=== PATIENT | female | born 1985 | race Caucasian/White ===

== ENCOUNTER → 2018-03-21 18:10 | Outpatient (CLI) | payer BC, SELFPAY ==
[2018-03-27 08:11] LABS: HPV APTIMA, High Risk Negative (Negative)
== END ==
PROVIDERS: Visit Provider Obstetrics & Gynecology
DX: Z12.4 Encounter for screening for malignant neoplasm of cervix (principal)
CPT/HCPCS: 88175; G0145

== ENCOUNTER → 2020-07-01 | Outpatient (CLI) | payer BC, SELFPAY ==
[2020-07-01 09:23] VITALS: BMI 28.8
[2020-07-01 18:51] LABS: Amphetamine Urine VISTA NEGATIVE (<1000 ng/mL); Barbiturate Urine VISTA NEGATIVE (< 200 ng/mL); Benzodiazepine Urine VISTA NEGATIVE (< 200 ng/mL); Cocaine Urine VISTA NEGATIVE (< 300 ng/mL); Ecstacy Urine VISTA NEGATIVE (< 500 ng/mL); Methadone Urine VISTA NEGATIVE (< 300 ng/mL); PCP Urine VISTA NEGATIVE (< 25 ng/mL); THC Urine VISTA NEGATIVE (< 50 ng/mL); Vista UDS pH Range 6
[2020-07-06 08:08] LABS: Chlamydia By Nucleic Acid AMP Negative (Negative)
[2020-07-06 09:54] LABS: Gonococcus By Nucleic Acid AMP Negative (Negative)
== END | disposition home or self-care (01) ==
LOC: LABSPEC 16:35
PROVIDERS: PCP Family Medicine; Referring Provider Obstetrics & Gynecology; Visit Provider Obstetrics & Gynecology
DX: Z34.90 Encounter for supervision of normal pregnancy, unspecified, unspecified trimester (principal); Z11.3 Encounter for screening for infections with a predominantly sexual mode of transmission
CPT/HCPCS: 80307; 87086; 87491; 87591

== ENCOUNTER → 2020-07-07 16:30 | Outpatient (CLI) | payer BC, SELFPAY ==
[2020-07-01 09:23] VITALS: BMI 28.8
== END ==
PROVIDERS: PCP Family Medicine; Referring Provider Obstetrics & Gynecology; Visit Provider Obstetrics & Gynecology
DX: U07.1 COVID-19 (principal)
CPT/HCPCS: 87635; C9803; U0003

== ENCOUNTER → 2020-07-16 10:47 | Outpatient (CLI) | payer BC, SELFPAY ==
[2020-07-01 09:23] VITALS: BMI 28.8
[2020-07-16 11:39] LABS: Absolute Lymphocyte Count 1.48 X10^3/uL (0.83-4.51); Absolute Neutrophil Count 4.7 X10^3/uL (2.0-7.7); Basophil# 0.02 X10^3/uL; Basophil% 0.3 % (0-1); Eosinophil# 0.06 X10^3/uL; Eosinophils% 0.9 % (0-5); Hematocrit 39.9 % (37-47); Hemoglobin 13.5 g/dL (12.0-15.0); Lymphocyte # 1.48 X10^3/ul (4.0); Lymphocyte % 21.3 % (19-41); Mean Corp Hgb Conc 33.8 g/dL (32-36); Mean Corpuscular Hgb 31.4 pg (27.0-32.0); Mean Corpuscular Volume 92.8 fL (81-99); Mean Platelet Vol. 9.7 fl (6.2-12.0); Monocyte# 0.67 X10^3/uL; Monocyte% 9.6 % (0-10); NRBC Flagged by Analyzer 0 % (0-5); Neutrophil % 67.6 % (47-70); Platelet Count 349 K/mm3 (150-450); RBC Distribution Width CV 11.6 % (11.6-14.6); RBC Distribution Width SD 39.4 fl (35.1-43.9)
[2020-07-16 12:32] LABS: HIV - WCH Non-Reactive (Nonreactive); Hepatitis B Surface Antigen Non-Reactive (Nonreactive); Hepatitis C Antibody Non-Reactive (Nonreactive); Rubella IgG Reactive (Nonreactive)
[2020-07-22 02:22] LABS: Rapid Plasmin Reagin (RPR) NONREACTIVE (NONREACTIVE)
== END ==
PROVIDERS: PCP Family Medicine; Referring Provider Obstetrics & Gynecology; Visit Provider Obstetrics & Gynecology
DX: O09.521 Supervision of elderly multigravida, first trimester (principal); Z3A.00 Weeks of gestation of pregnancy not specified; Z31.430 Encounter of female for testing for genetic disease carrier status for procreative management
CPT/HCPCS: 36415; 85025; 86592; 86703; 86762; 86803; 86850; 86900; 86901; 87340

== ENCOUNTER → 2020-11-15 09:35 | Outpatient (CLI) | payer BC, SELFPAY ==
[2020-10-18 09:59] VITALS: BMI 33.3
[2020-11-15 10:25] LABS: Absolute Lymphocyte Count 1.19 X10^3/uL (0.83-4.51); Absolute Neutrophil Count 6.7 X10^3/uL (2.0-7.7); Basophil# 0.03 X10^3/uL; Basophil% 0.3 % (0-1); Eosinophil# 0.09 X10^3/uL; Hematocrit 37.3 % (37-47); Hemoglobin 12.2 g/dL (12.0-15.0); Lymphocyte # 1.19 X10^3/ul (0.83-4.51); Lymphocyte % 13.6 % (19-41); Mean Corp Hgb Conc 32.7 g/dL (32-36); Mean Corpuscular Hgb 31.5 pg (27.0-32.0); Mean Corpuscular Volume 96.4 fL (81-99); Mean Platelet Vol. 9.9 fl (6.2-12.0); Monocyte# 0.71 X10^3/uL; Monocyte% 8.1 % (0-10); NRBC Flagged by Analyzer 0 % (0-5); Neutrophil # 6.66 X10^3/uL (2.7-7.7); Neutrophil % 76.4 % (47-70); Platelet Count 282 K/mm3 (150-450); RBC Distribution Width CV 12.8 % (11.6-14.6); RBC Distribution Width SD 44.7 fl (35.1-43.9); Red Blood Count 3.87 M/mm3 (4.2-5.4); White Blood Count 8.7 K/mm3 (4.4-11.0)
[2020-11-15 10:45] LABS: Glucose Challenge Gest 1H 50g 269 mg/dL (70-140)
== END ==
PROVIDERS: Obstetrics & Gynecology; PCP Family Medicine; Referring Provider Obstetrics & Gynecology; Visit Provider Obstetrics & Gynecology
DX: O09.90 Supervision of high risk pregnancy, unspecified, unspecified trimester (principal); Z13.1 Encounter for screening for diabetes mellitus; Z3A.00 Weeks of gestation of pregnancy not specified
CPT/HCPCS: 36415; 82950; 85025

== ENCOUNTER → 2020-11-17 10:43 | Outpatient (CLI) | payer BC, SELFPAY ==
[2020-11-16 09:26] VITALS: BMI 35.5
[2020-11-18 17:04] LABS: EBV Acute VCA IgM < 36.0 U/mL (0.0-35.9)
== END ==
PROVIDERS: PCP Family Medicine; Referring Provider Obstetrics & Gynecology; Visit Provider Obstetrics & Gynecology
DX: Z20.828 Contact with and (suspected) exposure to other viral communicable diseases (principal)
CPT/HCPCS: 36415; 86665

== ENCOUNTER 2020-11-22 10:02 | Outpatient (RCR) | payer BC, SELFPAY ==
[2020-11-16 09:26] VITALS: BMI 35.5
== END 2020-11-26 23:59 ==
LOC: DC 10:02
PROVIDERS: PCP Family Medicine; Visit Provider Obstetrics & Gynecology
DX: O24.419 Gestational diabetes mellitus in pregnancy, unspecified control (principal); Z3A.00 Weeks of gestation of pregnancy not specified
CPT/HCPCS: 97802

== ENCOUNTER 2020-11-30 08:55 | Outpatient (RCR) | payer BC, SELFPAY ==
[2020-11-16 09:26] VITALS: BMI 35.5
== END 2020-11-30 23:59 | disposition home or self-care (01) ==
LOC: DC 08:55
PROVIDERS: PCP Family Medicine; Visit Provider Obstetrics & Gynecology
DX: O24.419 Gestational diabetes mellitus in pregnancy, unspecified control (principal); Z3A.00 Weeks of gestation of pregnancy not specified

== ENCOUNTER → 2020-12-17 11:58 | Outpatient (CLI) | payer BC, SELFPAY ==
[2020-12-03 10:27] VITALS: BMI 35.5
[2020-12-17 10:19] VITALS: BMI 35.5
--- NOTE | 2020-12-17 12:03 | US_ITS ---
STUDY: SECOND AND THIRD TRIMESTER OBSTETRICAL ULTRASOUND - LIMITED REASON FOR EXAM: Female, 35 years old 32 weeks routine survey LMP: 05/04/2020 PRIOR ULTRASOUND: None. TECHNIQUE: Transabdominal TECHNICAL QUALITY: Adequate. FINDINGS: There is a single intrauterine fetus. The fetus is in a cephalic presentation. There is demonstrated cardiac activity with a heart rate of 141 bpm. There is a normal amniotic fluid volume. The largest amniotic fluid pocket measures 6.6 cm. The amniotic fluid index (SHIMON) is 15.85 cm. The placenta is posterior in location and is not low lying. There are Grade 1 placental changes. The cervix measures 3.2 cm in length. BIOMETRY: BPD: 7.99 cm: 32 weeks, 0 days HC: 29.34 cm: 32 weeks, 2 days AC: 32.72 cm: 36 weeks, 4 days FL: 6.06 cm: 31 weeks, 3 days age by current US: 32 weeks, 5 days. QI by current US: 02/06/2021. Estimated weight: 2468 grams, +/- 370 grams, 94 percentile. US/OB Limited With Biometrics IMPRESSION: Single live intrauterine at 32 weeks, 5 days by current ultrasound with QI of 02/06/2021. Heart rate of 141 bpm. No suspicious sonographic findings Electronically Signed: Rodney Trevino MD at 13:32 EDT , Service support ,
== END ==
PROVIDERS: PCP Family Medicine; Referring Provider Obstetrics & Gynecology; Visit Provider Obstetrics & Gynecology
DX: O98.513 Other viral diseases complicating pregnancy, third trimester (principal); U07.1 COVID-19; O09.523 Supervision of elderly multigravida, third trimester; Z3A.32 32 weeks gestation of pregnancy
CPT/HCPCS: 76816

== ENCOUNTER 2020-12-29 12:10 | Outpatient (CLI) | payer BC, SELFPAY ==
[2020-12-29] VITALS (7 sets, daily range): BP systolic 112–139; BP diastolic 65–87; PULSE 63–76; TEMP 36.9; O2SAT 99; BMI 35.2
[2020-12-29 12:56] LABS: Hematocrit 36.4 % (37-47); Hemoglobin 12.3 g/dL (12.0-15.0); Mean Corp Hgb Conc 33.8 g/dL (32-36); Mean Corpuscular Hgb 31.5 pg (27.0-32.0); Mean Corpuscular Volume 93.1 fL (81-99); Mean Platelet Vol. 10.6 fl (6.2-12.0); Platelet Count 261 K/mm3 (150-450); RBC Distribution Width CV 12.6 % (11.6-14.6); Red Blood Count 3.91 M/mm3 (4.2-5.4); White Blood Count 8.2 K/mm3 (4.4-11.0)
[2020-12-29 13:06] LABS: Protein, Urine (Random) 41.1 mg/dL (<11.9); Protein:Creat Ratio 471 mg/g CRE (0-200)
[2020-12-29 13:08] LABS: AST(SGOT) 23 U/L (15-37); Alanine Aminotransfer ALT/SGPT 31 U/L (13-56); Creatinine, Serum 0.58 mg/dL (0.55-1.02); EST Glomerular Filtration Rate 124 mL/min (>60); Est Glom Filt Rate - Afr Amer 150 mL/min (>60); Estimated Creatinine Clearance 115.79 ml/min; Uric Acid 4.5 mg/dL (2.6-6.0)
--- NOTE | 2020-12-30 12:27 | OB.TRI.PN ---
Progress Notes Date of Service: 12/29/20 Progress Note: Patient presents for triage evaluation secondary to elevated BP and nausea. BPs mild range to normal. P:C elevated but labs otherwise normal. FHT: Moderate variability reactive no decelerations category I tracing [place]: No Contractions Assessment and plan: Reactive NST, reassuring maternal and status patient discharged to home to follow-up at next scheduled visit. Will have check BPs at home. See problem list details for additional plan information. Laboratory Studies: Laboratory Tests 12/29/20 12/29/20 12/29/20 Range/Units 12:35 12:35 12:35 WBC 8.2 (4.4-11.0) K/mm3 RBC 3.91 L (4.2-5.4) M/mm3 Hgb 12.3 (12.0-15.0) g/dL Hct 36.4 L (37-47) % MCV 93.1 (81-99) fL MCH 31.5 (27.0-32.0) pg MCHC 33.8 (32-36) g/dL RDW Std Deviation 43.0 (35.1-43.9) fl RDW Coeff of [place]rs 12.6 (11.6-14.6) % Plt Count 261 (150-450) K/mm3 MPV 10.6 (6.2-12.0) fl Creatinine 0.58 (0.55-1.02) mg/dL Estim Creat Clear Calc 115.79 ml/min Est GFR (MDRD) Af Amer 150 (>60) mL/min Est GFR (MDRD) Non-Af 124 (>60) mL/min Uric Acid 4.5 (2.6-6.0) mg/dL AST 23 (15-37) U/L ALT 31 (13-56) U/L U Random Total Protein 41.1 H (<11.9) mg/dL Urine Creatinine 87.20 (NO RANGE EST.) mg/dL Protein/Creatinin Ratio 471 H (0-200) mg/g CRE Procedures Urinary/Genital 52xxx-59xxx: [id number] non-stress test Interp
== END 2020-12-29 14:20 | disposition home or self-care (01) ==
LOC: WPOUT 12:17 → WP 12:18
PROVIDERS: PCP Family Medicine; Referring Provider Obstetrics & Gynecology; Visit Provider Obstetrics & Gynecology
DX: O26.899 Other specified pregnancy related conditions, unspecified trimester (principal); R03.0 Elevated blood-pressure reading, without diagnosis of hypertension; R11.0 Nausea; Z3A.00 Weeks of gestation of pregnancy not specified
CPT/HCPCS: 36415; 59025; 59050; 82565; 82570; 84156; 84450; 84460; 84550; 85027; 99218; G0378

== ENCOUNTER → 2021-01-03 09:50 | Outpatient (CLI) | payer BC, SELFPAY ==
[2021-01-03 09:06] VITALS: BMI 35.2
[2021-01-03 10:10] LABS: Absolute Lymphocyte Count 1.14 X10^3/uL (0.83-4.51); Basophil# 0.04 X10^3/uL; Basophil% 0.6 % (0-1); Eosinophil# 0.06 X10^3/uL; Eosinophils% 0.9 % (0-5); Hematocrit 37.7 % (37-47); Hemoglobin 12.8 g/dL (12.0-15.0); Lymphocyte # 1.14 X10^3/ul (0.83-4.51); Lymphocyte % 16.2 % (19-41); Mean Corpuscular Hgb 31.2 pg (27.0-32.0); Mean Platelet Vol. 10.7 fl (6.2-12.0); Monocyte# 0.73 X10^3/uL; Monocyte% 10.4 % (0-10); NRBC Flagged by Analyzer 0 % (0-5); Neutrophil # 5.04 X10^3/uL (2.7-7.7); Neutrophil % 71.5 % (47-70); Platelet Count 276 K/mm3 (150-450); RBC Distribution Width CV 12.3 % (11.6-14.6); RBC Distribution Width SD 41.1 fl (35.1-43.9)
[2021-01-03 10:24] LABS: Protein, Urine (Random) 35.6 mg/dL (<11.9); Protein:Creat Ratio 534 mg/g CRE (0-200)
[2021-01-03 10:31] LABS: ALB/GLOB Ratio 0.5 RATIO (0.9-2.4); AST(SGOT) 18 U/L (15-37); Alanine Aminotransfer ALT/SGPT 25 U/L (13-56); Albumin, Serum 2.4 g/dL (3.2-5.0); Alkaline Phosphatase 240 U/L (45-117); Anion Gap 10 (5-15); BUN 12 mg/dL (7-18); BUN/Creat Ratio 18.6 RATIO (10-20); Calcium,Total 8.7 mg/dL (8.5-10.1); Chloride 105 mmol/L (98-107); Creatinine, Serum 0.64 mg/dL (0.55-1.02); EST Glomerular Filtration Rate 110 mL/min (>60); Est Glom Filt Rate - Afr Amer 133 mL/min (>60); Globulin 4.4 g/dL (2.2-4.2); Glucose 95 mg/dL (74-106); Protein, Total 6.8 g/dL (6.4-8.2); Sodium Level 137 mmol/L (136-145)
== END ==
PROVIDERS: Nurse Practitioner Women's Health; PCP Family Medicine; Referring Provider Obstetrics & Gynecology; Visit Provider Obstetrics & Gynecology
DX: O16.3 Unspecified maternal hypertension, third trimester (principal); Z20.828 Contact with and (suspected) exposure to other viral communicable diseases; Z3A.00 Weeks of gestation of pregnancy not specified
CPT/HCPCS: 36415; 80053; 82570; 84156; 85025; 86665

== ENCOUNTER 2021-01-04 16:15 | Outpatient (CLI) | payer BC, SELFPAY ==
[2021-01-03 09:06] VITALS: BMI 35.2
[2021-01-04 16:33] VITALS: BMI 34.9
[2021-01-04 16:43] VITALS: BP 133/77; PULSE 85; TEMP 37.1
--- NOTE | 2021-01-05 02:14 | OB.TRI.PN ---
Progress Notes Date of Service: 01/04/21 Progress Note: Patient presents for triage evaluation secondary to contractions FHT: 140 Moderate variability reactive no decelerations category I tracing [place]: irregular Contractions Assessment and plan: threatened PTL Reactive NST, reassuring maternal and status patient discharged to home to follow-up as scheduled. See problem list details for additional plan information. Charges/Coding Procedures Urinary/Genital 52xxx-59xxx: [id number] non-stress test Interp
== END 2021-01-04 17:10 | disposition home or self-care (01) ==
LOC: WPOUT 16:30 → WP 16:31
PROVIDERS: PCP Family Medicine; Visit Provider Obstetrics & Gynecology
DX: O62.9 Abnormality of forces of labor, unspecified (principal); Z3A.00 Weeks of gestation of pregnancy not specified
CPT/HCPCS: 59025; 59050; 99218; G0378

== ENCOUNTER → 2021-01-10 12:32 | Outpatient (CLI) | payer BC, SELFPAY ==
[2020-12-03 10:27] VITALS: BMI 35.5
[2021-01-10 11:21] VITALS: BMI 34.9
--- NOTE | 2021-01-10 12:37 | US_ITS ---
STUDY: SECOND AND THIRD TRIMESTER OBSTETRICAL ULTRASOUND REASON FOR EXAM: Female, 35 years old growth LMP: 05/04/2020. TECHNIQUE: Transabdominal TECHNICAL QUALITY: Adequate. PRIOR ULTRASOUND: Comparison is made with prior study dated 12/17/2020. FINDINGS: There is a single intrauterine fetus. The fetus is in a cephalic presentation. There is demonstrated cardiac activity with a heart rate of 158 bpm. There is a normal amniotic fluid volume. The largest amniotic fluid pocket measures 4.4 cm. The amniotic fluid index (SHIMON) is 11.9 cm. The placenta is anterior in location and is not low lying. There are Grade 2 placental changes. The cervix measures 3.7 cm in length. The adnexal regions are not visualized. BIOMETRY: BPD: 8.6 cm: 34 weeks, 5 days HC: 32.1 cm: 36 weeks, 1 days AC: 36 cm: 39 weeks, 6 days FL: 6.8 cm: 35 weeks, 0 days CI: 78% FL/BPD: 79% FL/HC: FL/AC: 19% HC/AC: 0.89 age by current US: 36 weeks, 2 days. QI by current US: 02/05/2021. Estimated weight: 3356 grams, +/- 543 grams, 94 %. age by prior US: 36 weeks, 1 days. QI by prior US: 02/06/2021. Age by LMP: 30 weeks, 6 days. QI by LMP: 02/08/2021. US/OB Limited With Biometrics IMPRESSION: Single live intrauterine gestation with a mean gestational age of 36 weeks and 1 day. The measurements obtained today fall within the normal expected range. Electronically Signed: Jay Guido MD at 13:52 EDT , Service support ,
[2021-01-10 13:23] LABS: Absolute Lymphocyte Count 1.16 X10^3/uL (0.83-4.51); Absolute Neutrophil Count 6.8 X10^3/uL (2.0-7.7); Basophil# 0.02 X10^3/uL; Basophil% 0.2 % (0-1); Eosinophil# 0.07 X10^3/uL; Eosinophils% 0.8 % (0-5); Hematocrit 39.1 % (37-47); Hemoglobin 12.9 g/dL (12.0-15.0); Lymphocyte # 1.16 X10^3/ul (0.83-4.51); Lymphocyte % 13.1 % (19-41); Mean Corpuscular Hgb 30.6 pg (27.0-32.0); Mean Corpuscular Volume 92.9 fL (81-99); Mean Platelet Vol. 10.4 fl (6.2-12.0); Monocyte# 0.78 X10^3/uL; Monocyte% 8.8 % (0-10); NRBC Flagged by Analyzer 0 % (0-5); Neutrophil # 6.78 X10^3/uL (2.7-7.7); Neutrophil % 76.8 % (47-70); Platelet Count 249 K/mm3 (150-450); RBC Distribution Width CV 12.4 % (11.6-14.6); Red Blood Count 4.21 M/mm3 (4.2-5.4); White Blood Count 8.8 K/mm3 (4.4-11.0)
[2021-01-10 13:39] LABS: ALB/GLOB Ratio 0.5 RATIO (0.9-2.4); AST(SGOT) 21 U/L (15-37); Alanine Aminotransfer ALT/SGPT 25 U/L (13-56); Albumin, Serum 2.4 g/dL (3.2-5.0); Alkaline Phosphatase 258 U/L (45-117); Anion Gap 10 (5-15); BUN 12 mg/dL (7-18); BUN/Creat Ratio 17.3 RATIO (10-20); Chloride 105 mmol/L (98-107); Creatinine, Serum 0.69 mg/dL (0.55-1.02); EST Glomerular Filtration Rate 101 mL/min (>60); Est Glom Filt Rate - Afr Amer 123 mL/min (>60); Globulin 4.4 g/dL (2.2-4.2); Glucose 73 mg/dL (74-106); Potassium 4.3 mmol/L (3.5-5.1); Protein, Total 6.8 g/dL (6.4-8.2); Sodium Level 138 mmol/L (136-145)
== END ==
PROVIDERS: PCP Family Medicine; Referring Provider Obstetrics & Gynecology; Visit Provider Obstetrics & Gynecology
DX: O09.522 Supervision of elderly multigravida, second trimester (principal); O98.519 Other viral diseases complicating pregnancy, unspecified trimester; U07.1 COVID-19; O14.90 Unspecified pre-eclampsia, unspecified trimester; Z3A.35 35 weeks gestation of pregnancy
CPT/HCPCS: 36415; 76816; 80053; 85025; 87081

== ENCOUNTER → 2021-01-13 10:46 | Outpatient (CLI) | payer BC, SELFPAY ==
[2021-01-10 11:21] VITALS: BMI 34.9
[2021-01-13 11:14] LABS: Protein, Urine (Random) 138.6 mg/dL (<11.9); Protein:Creat Ratio 956 mg/g CRE (0-200)
== END ==
PROVIDERS: PCP Family Medicine; Referring Provider Obstetrics & Gynecology; Visit Provider Obstetrics & Gynecology
DX: O14.90 Unspecified pre-eclampsia, unspecified trimester (principal); Z3A.00 Weeks of gestation of pregnancy not specified
CPT/HCPCS: 82570; 84156

== ENCOUNTER 2021-01-17 21:05 | Inpatient (IN) | payer BC, SELFPAY ==
[2021-01-17] VITALS (26 sets, daily range): BP systolic 111–166; BP diastolic 55–105; PULSE 61–99; TEMP 36; O2SAT 90–100; BMI 34.9; BMI 35.0
[2021-01-17] MEDS: Lactated Ringers 1,000 ML 200 ML IV (21:25)
[2021-01-17] MEDS: Lactated Ringers 500 ML 999 ML IV (21:29)
[2021-01-17 21:40] LABS: Absolute Lymphocyte Count 1.69 X10^3/uL (0.83-4.51); Absolute Neutrophil Count 7.7 X10^3/uL (2.0-7.7); Basophil# 0.02 X10^3/uL; Basophil% 0.2 % (0-1); Eosinophil# 0.04 X10^3/uL; Eosinophils% 0.4 % (0-5); Hematocrit 40.8 % (37-47); Hemoglobin 13.9 g/dL (12.0-15.0); Lymphocyte # 1.69 X10^3/ul (0.83-4.51); Lymphocyte % 16.2 % (19-41); Mean Corp Hgb Conc 34.1 g/dL (32-36); Mean Corpuscular Volume 90.9 fL (81-99); Mean Platelet Vol. 10.8 fl (6.2-12.0); Monocyte# 0.92 X10^3/uL; Monocyte% 8.8 % (0-10); NRBC Flagged by Analyzer 0 % (0-5); Platelet Count 280 K/mm3 (150-450); RBC Distribution Width CV 12.3 % (11.6-14.6); RBC Distribution Width SD 40.8 fl (35.1-43.9); Red Blood Count 4.49 M/mm3 (4.2-5.4); White Blood Count 10.4 K/mm3 (4.4-11.0)
[2021-01-17 21:54] LABS: AST(SGOT) 22 U/L (15-37); Alanine Aminotransfer ALT/SGPT 29 U/L (13-56); Creatinine, Serum 0.76 mg/dL (0.55-1.02); EST Glomerular Filtration Rate 91 mL/min (>60); Est Glom Filt Rate - Afr Amer 110 mL/min (>60); Estimated Creatinine Clearance 88.37 ml/min; Uric Acid 5.5 mg/dL (2.6-6.0)
[2021-01-17] MEDS: fentaNYL-bupivacaine (epidural) 100 ML BAG EPIDURAL (22:27)
--- NOTE | 2021-01-17 23:22 | HP.PCM.OB_ITS ---
HPI - General General Date of Admission: 01/17/21 HPI Narrative JULIANNE ONEAL, is a 35 F who presents IAL regualr ctx with clear LOF, 4 cm dilated. Maternal Data Information QI Calculator 2 Estimated Delivery Date Method Current WG Current Estimate 02/08/21 LMP (Certain) 36w 6d Other Estimates 02/06/21 Ultrasound #1 37w 1d PFSH PFS Medical History (Updated 01/17/21 @ 23:[address] Marivel Velasco MD) Abnormal Pap smear of cervix Asthma Depression with anxiety Gestational diabetes Heartburn History of pre-term labor Insomnia Preeclampsia Home Medications omeprazole magnesium 20 mg tablet,delayed release 20 mg PO DAILY 03/21/18 [History Last Taken 01/16/21] multivitamin no.47-iron fum 27 mg-folate no.1 1 mg-dha 300 mg capsule 1 cap PO DAILY 06/22/20 [History Last Taken 01/17/21 09:00] blood sugar diagnostic #100 each 11/15/20 [Rx Last Taken Unknown] blood-glucose meter #1 each 11/15/20 [Rx Last Taken Unknown] lancets 33 gauge #100 each 11/15/20 [Rx Last Taken Unknown] aspirin 81 mg tablet,delayed release 81 mg PO QHS 11/16/20 [History Last Taken 01/16/21] doxylamine succinate 25 mg tablet 25 mg PO QHS PRN 11/16/20 [History Last Taken 01/16/21] Vitamin D (with calcium) 50 mcg OTHER DAILY 12/29/20 [History Last Taken 01/16/21] guaifenesin [Mucinex] 1,200 mg PO BID 12/29/20 [History Last Taken 01/17/21 09:00] metformin 1,000 mg PO BID 01/17/21 [History Last Taken 01/17/21 09:00] sertraline [Zoloft] 50 mg PO DAILY 01/17/21 [History Last Taken 01/17/21 09:00] Allergy/AdvReac Type Severity Reaction Status Date / Time codeine AdvReac Nausea Verified 01/13/21 09:54 morphine AdvReac Nausea Verified 01/13/21 09:54 Family History Mother Hypertension Narcolepsy Aunt Thyroid cancer Grandmother Thyroid cancer Brother Trisomy 21 Other Cancer Surgical History H/O toe surgery Social History adopted: No household members: family housing: house number of children: 3 pets and animals: Yes Smoking Status: Never smoker second hand exposure: No alcohol intake: never substance use type: does not use caffeine: Yes what type of physical activity do you participate in: walking and bicycling frequency: 3-4 times per week seatbelt use: always do you feel safe at home: Yes additional social history: Wxxbifkhu-Mrlmd-vuyp 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 Date Name GA/Weeks Outcome Route Bth Weight Gen Labor Lgth Anesthesia Del Locatn Provider FOB Unknown Peace-2003 33 live - 4lbs 15oz Fema le epidural [facility] Unknown Robin-2004 39 live - full term 6lbs 7oz Male 2 hours epidural [facility] Dr. Diggs Unknown Ana-2006 39 live - full term 7lbs 6.5oz Fem annamaria 7-8hours epidural [facility] Dr. Diggs/Dr. Beasley Delivery Date: hospitalized for 3 weeks until delivered at 33 weeks; NICU x1 week; placenta broke apart after delivery; tore on her cervix per patient Melisa Das Delivery Date: no complications Melisa Das Delivery Date: decrease FHR- nuchal cord Melisa Das Visit Details Expected Delivery Route/Plan Labor Preferences- CB/BF classes:declines labor support person: [] labor intervention preferences: [] pain management options preferred: [] cut cord/dad catch: [] : [] PP control planned: [] discussed possible routes of delivery and associated risks: [] special requests: [] Plans flu vaccine: declines tdap vaccine: given rhogam: na LARC form signed: declined movement and labor precautions reviewed. Problem list reviewed and updated with the most current plan of care details and appropriate orders placed. Relevant counseling for the gestational age provided. Continue routine care and follow up unless otherwise noted in visit notes/problem list details OB Flowsheet Initial Weight: Not Recorded Date -?-?-?-?-?-?-?-?-?-?-?-?- EGA Weight BP Urine Prot -?-?-?-?-?-?-?-?-?-?-?-?- Glucose FHR FuHt Pres Dilation -?-?-?-?-?-?-?-?-?-?-?-?- Effaced St Visit Note 07/01/20 -?-?-?-?-?-?-?-?-?-?-?-?- 8w 2d 168 lb 132/86 -?-?-?-?-?-?-?-?-?-?-?-?- -?-?-?-?-?-?-?-?-?-?-?-?- SM- CRL cons wit h LMP 07/27/20 -?-?-?-?-?-?-?-?-?-?-?-?- 12w 0d 170 lb 112/82 Negative -?-?-?-?-?-?-?-?-?-?-?-?- Negative 160 -?-?-?-?-?-?-?-?-?-?-?-?- GP - no cramping or bleeding. Planning gender reveal tonight. Flu shot today. 08/27/20 -?-?-?-?-?-?-?-?-?-?-?-?- 16w 3d 118 lb 178 lb 110/82 Negative -?-?-?-?-?-?-?-?-?-?-?-?- Negative 150 -?-?-?-?-?--?-?-?-?-?-?-?- SM- no vb lof cr amping 09/20/20 -?-?-?-?-?-?-?-?-?-?-?-?- 19w 6d 185 lb 115/80 Negative -?-?-?-?-?-?-?-?-?-?-?-?- Negative 145 -?-?-?-?-?-?-?-?-?-?-?-?- SM- no vb lof cr amping 10/18/20 -?-?-?-?-?-?-?-?-?-?-?-?- 23w 6d 194 lb 8 oz 128/88 Nega tive -?-?-?-?-?-?-?-?-?-?--?-?- Negative 135 24 -?-?-?-?-?-?-?-?-?-?-?-?- GP - no LOF, VB, DFM, ctx. GCT given for next visit. Discussed covid vaccine in . Likely planning Juanjose William for name. 11/15/20 -?-?-?-?-?-?-?-?-?-?-?-?- 27w 6d 209 lb 136/78 Negative -?-?-?-?-?-?-?-?-?-?-?-?- Negative 140 28 -?--?-?-?-?-?-?-?-?-?-?-?- SM- no vb lof go od fm no regular ctx but some stephen parr, increased swelling 12/03/20 -?-?-?-?-?-?-?-?-?-?-?-?- 30w 3d 207 lb 122/80 -?-?-?-?-?-?-?-?-?-?-?-?- 140 33 -?-?-?-?-?-?-?-?-?-?-?-?- SM- no vb lof go od fm no regular ctx BG controlled with metformin, discussed increased testing 12/17/20 -?-?-?-?-?-?-?-?-?-?-?-?- 32w 3d 205 lb 112/62 Negative -?-?-?-?-?-?-?-?-?-?-?-?- Negative 140 -?-?-?-?-?-?-?-?-?-?-?-?- SM- nst 12/20/20 -?-?-?-?-?-?-?-?-?-?-?-?- 32w 6d 207 lb 120/84 Trace -?-?-?-?-?-?-?-?-?-?-?-?- Negative 150 -?-?-?-?-?-?-?-?-?-?-?-?- MH-NST only, justyn ctive 12/29/20 -?-?-?-?-?-?-?-?-?-?-?-?- 34w 1d 205 lb 8 oz 130/90 Nega tive -?-?-?-?-?-?-?-?-?-?-?-?- Negative 130 -?-?-?-?-?-?-?-?-?-?-?-?- GP - no LOF, VB, DFM, regular ctx. BP elevated and patient having nausea and not feeling well. Sent to triage for eval. 01/03/21 -?-?-?-?-?-?-?-?--?-?-?-?- 34w 6d 203 lb 122/80 Trace -?-?-?-?-?-?-?-?-?-?-?-?- Negative -?-?-?-?-?-?-?-?-?-?-?-?- 01/10/21 -?-?-?-?-?-?-?-?-?-?-?--?- 35w 6d 204 lb 130/82 Trace -?-?-?-?-?-?-?-?-?-?-?-?- Negative -?-?-?-?-?-?-?-?-?-?-?-?- 01/17/21 -?-?-?-?-?-?-?-?-?-?-?-?- 36w 6d 140/104 -?-?-?-?-?-?-?-?-?-?-?-?- -?-?-?-?-?-?-?-?-?-?-?-?- 01/17/21 -?-?-?-?-?-?-?-?-?-?-?-?- 36w 6d 204 lb 138/77 145/80 143/79 147/75 149/74 122/60 114/56 118/58 118/55 114/58 111/58 122/73 116/58 143/83 166/105 155/82 -?-?-?-?-?-?-?-?-?-?-?-?- -?-?-?-?-?-?-?-?-?-?-?-?- NST FHR Rate Baby A Baseline: 130 Variability:: Moderate Accelerations:: 15 x 15 Decelerations:: None NST Reactive:: Yes FHR Category:: Category I Uterine Activity:: q3-5 ROS Constitutional Constitutional: Reports systems reviewed and no addt'l complaints, except as documented ENT HEENT: Reports systems reviewed and no addt'l complaints, except as documented Cardiovascular Cardiovascular: Reports systems reviewed and no addt'l complaints, except as documented Respiratory/Chest Respiratory/Chest: Reports systems reviewed and no addt'l complaints, except as documented Gastrointestinal Gastrointestinal: Reports systems reviewed and no addt'l complaints, except as documented and nausea; Denies abdominal pain Genitourinary Genitourinary: Reports systems reviewed and no addt'l complaints, except as documented, contractions Details: present and frequency (regular ) and movement Details: present Musculoskeletal Musculoskeletal: Reports systems reviewed and no addt'l complaints, except as documented Integumentary Integumentary: Reports as per HPI Neurologic Neurologic: Reports systems reviewed and no addt'l complaints, except as documented Endocrine Endocrinology: Reports systems reviewed and no addt'l complaints, except as documented Vital Signs Vital Signs Vital Signs: 01/17/21 21:12 01/17/21 21:58 01/17/21 21:59 Temperature Temperature Source Pulse Rate 75 70 Blood Pressure 138/77 H BP Systolic 138 BP Diastolic 77 Pulse Ox 99 100 01/17/21 22:03 01/17/21 22:08 01/17/21 22:09 Temperature Temperature Source Pulse Rate 74 68 Blood Pressure 145/80 H 143/79 H BP Systolic 145 143 BP Diastolic 80 79 Pulse Ox 100 100 01/17/21 22:13 01/17/21 22:18 01/17/21 22:23 Temperature Temperature Source Pulse Rate 90 72 Blood Pressure 147/75 H 149/74 H BP Systolic 147 149 BP Diastolic 75 74 Pulse Ox 100 100 100 01/17/21 22:24 01/17/21 22:28 01/17/21 22:29 Temperature Temperature Source Pulse Rate 64 70 68 Blood Pressure 122/60 H 114/56 L BP Systolic 122 114 BP Diastolic 60 56 Pulse Ox 100 01/17/21 22:33 01/17/21 22:34 01/17/21 22:38 Temperature Temperature Source Pulse Rate 75 65 75 Blood Pressure 118/58 L 118/55 L BP Systolic 118 118 BP Diastolic 58 55 Pulse Ox 100 100 01/17/21 22:43 01/17/21 22:48 01/17/21 22:49 Temperature Temperature Source Pulse Rate 67 61 Blood Pressure 114/58 L 111/58 L BP Systolic 114 111 BP Diastolic 58 58 Pulse Ox 100 100 01/17/21 22:53 01/17/21 22:54 01/17/21 22:58 Temperature Temperature Source Pulse Rate 61 68 Blood Pressure 122/73 H 116/58 L BP Systolic 122 116 BP Diastolic 73 58 Pulse Ox 100 100 01/17/21 23:03 01/17/21 23:08 01/17/21 23:20 Temperature 96.8 F L Temperature Source Temporal Pulse Rate 79 74 Blood Pressure 143/83 H BP Systolic 143 BP Diastolic 83 Pulse Ox 100 100 97 01/17/21 23:21 Temperature Temperature Source Pulse Rate 88 Blood Pressure 166/105 H BP Systolic 166 BP Diastolic 105 Pulse Ox 90 Weight Weight: 204 lb Body Mass Index (BMI) 35.0 Physical Exam Const alert, oriented x3 and healthy appearing Constitutional Narrative: uncomfortable with contractions HEENT normocephalic and moist oral mucous membranes Head and Scalp: atraumatic Neck full ROM, no lymphadenopathy, supple and thyroid normal General: trachea midline Thyroid: thyroid normal Lymph Lymphatic: no lymphadenopathy noted Chest inspection of chest normal Resp normal respiratory effort Cardio regular rate GI normal to inspection, nondistended, normoactive bowel sounds, soft to palpation and non-tender Inspection: gravid external exam normal Bimanual Exam - Vag & Uterus: uterus non-tender Manual OB Exam: estimated gestational size appropriate, presentation cephalic, dilated 4, effaced and station Extremity normal to inspection General Extremity: Negative for edema Skin no rashes or lesions noted Neuro deep tendon reflexes 2+ bilaterally Motor Exam: strength 5/5 throughout and clonus absent Psych mental status grossly normal Labs Labs Labs: Blood Type A POSITIVE Antibody Screen NEGATIVE Hct 40.8 % (37-47) Hgb 13.9 g/dL (12.0-15.0) Pap Smear Negative Obstetrics US Rubella IgG Antibody Reactive (Nonreactive) Hep Bs Antigen Non-Reactive (Nonreactive) Neisseria gonorrhoeae DNA (RUDY) Negative (Negative) HIV 1&2 Antibody Non-Reactive (Nonreactive) Glucose 1 Hr 50 gm 269 mg/dL (70-140) H Miscellaneous Test Assessment & Plan (1) : QUALIFIERS: Weeks of gestation: 35 weeks Qualified Code(s): Z3A.35 - 35 weeks gestation of COMMENT: low risk genetic, carrier neg. . declined afp, anatomy nl. GBS neg (2) AMA (advanced maternal age) multigravida 35+: QUALIFIERS: Trimester: second trimester Qualified Code(s): O09.522 - Supervision of elderly multigravida, second trimester COMMENT: nl genetics, plan 36 week growth us (3) Supervision of high risk , antepartum: COMMENT: PRR QI: 02/08/21 boy PC:Robin Hand Jenna Spouse: Deshawn(1st child) (4) FH: Down syndrome: COMMENT: older brother has Trisomy 21 (5) COVID-19 affecting , antepartum: COMMENT: start ASA; growth scans after 28 weeks q4w, growth nl (6) History of tetanus, diphtheria, and acellular pertussis booster vaccination (Tdap): COMMENT: 11/15/20 (7) Gestational diabetes: QUALIFIERS: Gestational diabetes mellitus control: diet-controlled Trimester: third trimester Qualified Code(s): O24.410 - Gestational diabetes mellitus in , diet controlled COMMENT: Metformin. s/p Endocrine and nutrition consult. deliver @ 39 (8) Preeclampsia: COMMENT: wkly labs, deliver @ 37 wks (9) Depression with anxiety: COMMENT: wellbutrin, prescribed by PCP. in counseling. (10) SROM (spontaneous rupture of membranes): (11) Active labor at term: PLAN: Patient presents IAL, plan expectant management for , pitocin/AROM PRN if needed. Pain management: plans epidural. GBS neg. Management of any complications: GDMA2- monitor BS per protocol, bps. I have reviewed the PFSH and made any clinically relevant updates.
[2021-01-18] VITALS (41 sets, daily range): BP systolic 101–157; BP diastolic 56–89; PULSE 66–101; RESP 16–18; TEMP 35.8–37; O2SAT 95–100
[2021-01-18] MEDS: Lactated Ringers 500 ML 999 ML IV (00:01)
[2021-01-18] MEDS: 0.9% Normal Saline 250 ML IV.SOLN. 500 ML INTRA-UTER (00:10)
[2021-01-18] MEDS: Lactated Ringers 1,000 ML 200 ML IV (02:04)
[2021-01-18] MEDS: Oxytocin 30 units/NS 500 ml 30 UNITS/500 ML IV.SOLN 334 UNITS IV (02:32)
--- NOTE | 2021-01-18 03:16 | EX.PCM.OBRPT ---
Maternal Data Information QI Calculator Estimated Delivery Date Method Current Current Estimate 02/08/21 LMP (Certain) 37w 0d Other Estimates 02/06/21 Ultrasound #1 37w 2d Vaginal Delivery Maternal Presentation Maternal Presentation: Active Labor Operative Information Date of Procedure: 01/18/21 Pre-Operative Diagnosis: IAL Post-Operative Diagnosis: same Surgery / Procedure Performed: Vacuum Assisted Vaginal Delivery Type of Anesthesia: Epidural Special Medications: none Estimated Blood Loss: 100 Fluids Replaced: crystalloid Findings Description of Procedure: Patient began pushing and developed recurrent decelerations therefore decision for vacuum-assisted vaginal delivery was made patient was consented. Vacuum was applied and with 1 pull no pop offs during 1 contraction the delivered the head in the YUNIEL presentation. The head was delivered atraumatically and a loose nuchal cord ?1 was identified and the delivered through without complication. The anterior and posterior shoulders delivered without complication followed by the rest of the infant and the infant was placed on the maternal abdomen. Delayed cord clamping was employed for approximately 60 seconds. Cord was clamped and cut and gentle traction was applied to the cord and the placenta delivered spontaneously immediately following it was noted to be intact with three-vessel cord. The perineum and vagina were inspected and noted to have no laceration. EBL was 100 cc. Patient and tolerated delivery well. Presentation: HOMER Amniotic Membrane Rupture Type: Artificial Amniotic Fluid Description: Clear Placental Delivery Description: Spontaneous Placenta Disposition: [facility] Cord Vessel Description: 3 Vessels Cord Entanglement: Around neck x 1, loose Infant A Gender: Male Delayed Cord Clamping: Yes Post Vaginal Delivery Medications Given After Delivery: IV Pitocin Episiotomy Description: None Laceration: None Complication Complications: None Procedures Urinary/Genital 52xxx-59xxx: [id number] Vaginal Delivery [facility]
--- NOTE | 2021-01-18 03:22 | PCM.DC ---
Discharge Instructions Diet Discharge Diet: No restrictions Activity Discharge Activity: Return to Normal Activity, May Not Drive (while taking narcotic pain medications.) and May Shower May resume sexual activity in: 4-6 weeks Dressing / Incision Call your doctor if your incision/area has: Continuous Slow Oozing, Sudden Increased Bleeding, Increased Pain/ Swelling, Increased Redness and Foul Smelling Discharge Follow Up Care Please Follow Up With: Marivel Velasco MD When: Call [phone] to make an appointment with your doctor in 6 weeks. If you had elevated blood pressure or 4th degree laceration, you will need to be seen in 2 weeks. Test Results: Test results from this visit will be discussed in further detail at your follow-up appointment, if applicable. Discharge Plan Admission Admit Date/Time: 01/17/21 21:05 Primary Reason for Your Visit: vaginal delivery Attending Provider: Marivel Velasco Primary Care Provider: Jennifer Park Discharge Orders/Prescriptions Prescriptions: Continued omeprazole magnesium [Prilosec OTC] 20 mg tablet,delayed release (DR/EC) 20 mg PO DAILY RF: 0 PNV-DHA 27 mg iron-1 mg -300 mg capsule 1 cap PO DAILY RF: 0 Mucinex 1,200 mg Tablet Extended Release 12hr 1,200 mg PO BID RF: 0 Vitamin D (with calcium) 50 mcg OTHER DAILY RF: 0 sertraline [Zoloft] 50 mg tablet 50 mg PO DAILY RF: 0 Discontinued aspirin [Adult Low Dose Aspirin] 81 mg tablet,delayed release (DR/EC) 81 mg PO QHS RF: 0 Unisom (doxylamine) 25 mg tablet 25 mg PO QHS PRN (Reason: Insomnia) RF: 0 metformin 1,000 mg tablet 1,000 mg PO BID RF: 0 No Action (DME) blood-glucose meter Misc See Rx Instructions .ROUTE .MEDSUPPLY Qty: 1 RF: 0 (DME) lancets [BD Ultra Fine Lancets] 33 gauge misc See Rx Instructions .ROUTE .MEDSUPPLY Qty: 100 RF: 5 (DME) Blood Glucose Test Strip See Rx Instructions .ROUTE .MEDSUPPLY Qty: 100 RF: 5 Referrals / Follow Up: Marivel Velasco MD [STAFF PHYSICIAN] - Jennifer Park [Primary Care Provider] - Disposition Disposition (needs filled in before D/C Order can be placed): Home, self care
[2021-01-18] MEDS: 0.9% Saline Lock 10 ML Syringe IV (05:10)
[2021-01-18 08:38] LABS: Bedside Glucose 90 mg/dL (70-110)
[2021-01-18 08:38] LABS: Bedside Glucose 113 mg/dL (70-110)
[2021-01-18 08:38] LABS: Bedside Glucose 76 mg/dL (70-110)
[2021-01-18 08:38] LABS: Bedside Glucose 92 mg/dL (70-110)
[2021-01-18 08:38] LABS: Bedside Glucose 89 mg/dL (70-110)
[2021-01-18] MEDS: Pantoprazole Sodium 20 MG Tablet PO (10:14)
[2021-01-18] MEDS: Sertraline 50 MG Tablet PO (10:14)
[2021-01-18] MEDS: guaiFENesin 1,200 MG Tablet 1200 MG PO ×2 (10:14→23:21)
[2021-01-18] MEDS: Prenatal Vits Tablet 1 TABLET PO (10:16)
[2021-01-19 05:13] VITALS: BP 138/82; PULSE 63; RESP 17; TEMP 36
[2021-01-19] MEDS: Acetaminophen 500 MG Tablet 1000 MG PO (05:56)
[2021-01-19 06:30] LABS: Bedside Glucose 109 mg/dL (70-110)
--- NOTE | 2021-01-19 07:59 | PCM.PN.OB ---
Subjective Subjective Patient doing well without complaints. Tolerating PO. Ambulating and voiding without difficulty. feeding well. Denies chest pain, shortness of breath, calf pain/swelling, fevers, chills, lightheadedness. Objective Data Objective Data Vital Signs: Vital Signs Temp Pulse Resp BP Pulse Ox 96.8 F L 63 17 138/82 H 99 01/19/21 05:13 01/19/21 05:13 01/19/21 05:13 01/19/21 05:13 01/18/21 04:41 Oxygen Delivery Method Room Air Weight: 204 lb Body Mass Index (BMI) 35.0 Intake & Output: Intake and Output for Last 24 Hours 01/17/21 01/18/21 01/19/21 23:59 23:59 23:59 Intake Total 740 / 740 / Output Total 200 / 200 700 / 700 Balance 540 / 540 1313.33 / 1313.33 Lab / Micro Data Result Diagrams: 01/17/21 21:25 01/17/21 21:25 Labs: Laboratory Results - last 24 hr 01/17/21 01/17/21 01/18/21 21:48 22:56 00:45 POC Glucose 89 90 76 01/18/21 01/18/21 01/19/21 02:02 03:51 05:16 POC Glucose 92 113 H 109 Micro: Microbiology 01/17/21 21:25 Mucosa - Nasopharyngeal SARS-CoV-2 Antigen (Rapid) - Final Physical Exam Const alert and oriented x3 HEENT normocephalic Eyes PERRL Neck full ROM Resp normal respiratory effort GI soft to palpation GI Narrative: FF below U Assessment & Plan (1) Vaginal delivery: PLAN: s/p PPD # 1 1. routine post delivery care 2. breast feeding- support given 3. rh positive 4. rubella immune 5. home today
[2021-01-19 08:55] VITALS: BP 135/73; PULSE 60; RESP 18; TEMP 36.5
[2021-01-19] MEDS: Sertraline 50 MG Tablet PO (10:27)
[2021-01-19] MEDS: guaiFENesin 1,200 MG Tablet 1200 MG PO (10:39)
[2021-01-19] MEDS: Pantoprazole Sodium 20 MG Tablet PO (10:39)
[2021-01-19 13:20] VITALS: BP 129/74; PULSE 68; RESP 18; TEMP 36.4
== END 2021-01-19 13:40 | disposition home or self-care (01) | DRG 807 ==
LOC: WPOUT 21:24 → WP 21:25
PROVIDERS: Admitting Provider Obstetrics & Gynecology; PCP Family Medicine; Visit Provider Obstetrics & Gynecology
DX: O76 Abnormality in fetal heart rate and rhythm complicating labor and delivery (principal); Z37.0 Single live birth; O24.429 Gestational diabetes mellitus in childbirth, unspecified control; Z3A.37 37 weeks gestation of pregnancy; J45.909 Unspecified asthma, uncomplicated; O99.52 Diseases of the respiratory system complicating childbirth; F41.8 Other specified anxiety disorders; O99.344 Other mental disorders complicating childbirth; Z79.82 Long term (current) use of aspirin; Z79.84 Long term (current) use of oral hypoglycemic drugs; Z79.899 Other long term (current) drug therapy; O69.81X0 Labor and delivery complicated by cord around neck, without compression, not applicable or unspecified
CPT/HCPCS: 59025; 59050; 82565; 82962; 84450; 84460; 84550; 85025; 86850; 86900; 86901; 87426; 99218; J7050; J7120; A4216; G0378

== ENCOUNTER → 2022-11-23 | Outpatient (CLI) | payer BC, SELFPAY ==
[2022-11-29 14:09] LABS: HPV APTIMA, High Risk Negative (Negative)
== END | disposition home or self-care (01) ==
LOC: LABSPEC 11:04
PROVIDERS: PCP Family Medicine; Referring Provider Nurse Practitioner Women's Health; Visit Provider Nurse Practitioner Women's Health
DX: Z01.419 Encounter for gynecological examination (general) (routine) without abnormal findings (principal)
CPT/HCPCS: 87624; 88175; G0145

== ENCOUNTER → 2023-04-05 | Outpatient (CLI) | payer BC, SELFPAY ==
[2023-04-09 07:06] LABS: Chlamydia By Nucleic Acid AMP Negative (Negative); Gonococcus By Nucleic Acid AMP Negative (Negative)
== END | disposition home or self-care (01) ==
LOC: LABSPEC 11:34
PROVIDERS: Referring Provider Obstetrics & Gynecology; Visit Provider Obstetrics & Gynecology
DX: O09.90 Supervision of high risk pregnancy, unspecified, unspecified trimester (principal); Z3A.00 Weeks of gestation of pregnancy not specified
CPT/HCPCS: 87086; 87088; 87491; 87591

== ENCOUNTER → 2023-04-16 | Outpatient (CLI) | payer BC, SELFPAY ==
[2023-04-16 08:40] LABS: Absolute Lymphocyte Count 1.29 X10^3/uL (0.83-4.51); Absolute Neutrophil Count 5.1 X10^3/uL (2.0-7.7); Basophil# 0.04 X10^3/uL; Basophil% 0.6 % (0-1); Eosinophil# 0.14 X10^3/uL; Eosinophils% 1.9 % (0-5); Hematocrit 40.1 % (37-47); Hemoglobin 13.8 g/dL (12.0-15.0); Lymphocyte # 1.29 X10^3/ul (0.83-4.51); Lymphocyte % 17.7 % (19-41); Mean Corp Hgb Conc 34.4 g/dL (32-36); Mean Corpuscular Hgb 32.5 pg (27.0-32.0); Mean Corpuscular Volume 94.6 fL (81-99); Mean Platelet Vol. 9.4 fl (6.2-12.0); Monocyte% 9.6 % (0-10); NRBC Flagged by Analyzer 0 % (0-5); Neutrophil # 5.09 X10^3/uL (2.7-7.7); Neutrophil % 70.1 % (47-70); Platelet Count 329 K/mm3 (150-450); RBC Distribution Width SD 41.9 fl (35.1-43.9); Red Blood Count 4.24 M/mm3 (4.2-5.4); White Blood Count 7.3 K/mm3 (4.4-11.0)
[2023-04-16 08:48] LABS: Protein, Urine (Random) 18.5 mg/dL (<11.9); Protein:Creat Ratio 129 mg/g CRE (0-200)
[2023-04-16 09:11] LABS: ALB/GLOB Ratio 0.9 RATIO (0.9-2.4); AST(SGOT) 9 U/L (15-37); Alanine Aminotransfer ALT/SGPT 17 U/L (13-56); Albumin, Serum 3.5 g/dL (3.2-5.0); Alkaline Phosphatase 80 U/L (45-117); Anion Gap 10 (5-15); BUN 9 mg/dL (7-18); BUN/Creat Ratio 14.7 RATIO (10-20); Calcium,Total 8.9 mg/dL (8.5-10.1); Chloride 104 mmol/L (98-107); Creatinine, Serum 0.61 mg/dL (0.55-1.02); EST Glomerular Filtration Rate 116 mL/min (>60); Est Glom Filt Rate - Afr Amer 140 mL/min (>60); Glucose 104 mg/dL (74-106); Potassium 3.9 mmol/L (3.5-5.1); Protein, Total 7.5 g/dL (6.4-8.2); Sodium Level 138 mmol/L (136-145)
[2023-04-16 09:34] LABS: NATERA MAILED SPECIMEN
[2023-04-16 09:47] LABS: HIV - WCH Non-Reactive (Nonreactive); Hepatitis B Surface Antigen Non-Reactive (Nonreactive); Hepatitis C Antibody Non-Reactive (Nonreactive); Rubella IgG Reactive (Nonreactive); Syphilis Antibodies Non-reactive
== END | disposition home or self-care (01) ==
PROVIDERS: Referring Provider Obstetrics & Gynecology; Visit Provider Obstetrics & Gynecology
DX: O09.521 Supervision of elderly multigravida, first trimester (principal); Z3A.00 Weeks of gestation of pregnancy not specified
CPT/HCPCS: 36415; 80053; 82570; 84156; 85025; 86703; 86762; 86780; 86803; 86850; 86900; 86901; 87340

== ENCOUNTER → 2023-04-30 | Outpatient (CLI) | payer BC, SELFPAY ==
[2023-04-30 10:31] LABS: Hemoglobin A1c 5.2 % (3.8-5.6)
== END | disposition home or self-care (01) ==
LOC: PAVLAB 09:12
PROVIDERS: Referring Provider Obstetrics & Gynecology; Visit Provider Obstetrics & Gynecology
DX: O09.299 Supervision of pregnancy with other poor reproductive or obstetric history, unspecified trimester (principal); Z86.32 Personal history of gestational diabetes; Z3A.00 Weeks of gestation of pregnancy not specified
CPT/HCPCS: 36415; 83036

== ENCOUNTER 2023-07-29 18:15 | Outpatient (CLI) | payer BC, SELFPAY ==
--- OUTSIDE RECORDS SUMMARY | 2023-07-29 18:23 | XMS RPT_ITS | CCD ---
Author Name Unknown Address [address] [place] [address] Organization [facility] Care Team Providers Care Entry Driver Operator Name Role Phone Jennifer Park DO Primary Care Provider [phone] Stewart Romo Attending Unavailable Jennifer Park Referring Unavailable Jennifer Park Primary Care Unavailable Jennifer Park Unavailable Jennifer aPrk Referring Unavailable Jennifer Park Primary Care Unavailable JENNIFER PARK Primary Care Unavailable Lizzy King Unavailable Ms. Lizzy King Primary Care Unavailable Christine, Ms. Ball Attending Unavailable Ms. Lizzy King Referring Unavailable Jennifer Park Primary Care Provider JENNIFER PARK Primary Care Unavailable JENNIFER PARK Primary Care Unavailable DEA LEE Attending Unavailable MARIVEL FERRARA Referring Unavailabl e JENNIFER PARK Primary Care Unavailable DEA LEE Attending Unavailable MARIVEL FERRARA Referring Unavailabl e Allergies Allergy Classification Reported Allergen(s) Allergy Type Date of Onset Reaction(s) Facility (2 sources) Codeine Drug Allergy 6 Nausea Only [facility] (5 sources) Morphine; Translations: [MORPHINE] Drug Allergy 6 Nausea Only, GI Upset, Vomiting [facility] (3 sources) Acetaminophen / Codeine; Translations: [ACETAMINOPHEN-CO DEINE] Drug Allergy 6 Intolerance, GI Upset [facility] Other [place] [facility] (1 source) Acetaminophen / Codeine; Translations: [Tylenol with Codeine #3] Drug Allergy [facility] Work Phone: (1 source) Morphine Derivatives; Translations: [Morphine Derivatives] Allergy to drug (finding) [facility] Work Phone: Medications Current Medications Medication Drug Class(es) Dates Sig (Normalized) Sig (Original) aspirin 81 mg delayed release oral tablet (1 source) Platelet Aggregation Inhibitor, Nonsteroidal Anti-inflammatory Drug Start: 08-24-2020 End: 03-18-2021 take 1 tablet by mouth once daily aspirin EC 81 MG EC tablet Take 1 tablet by mouth daily 30 tablet 5 08/24/2020 03/18/2021 Discontinued (LIST CLEANUP) 24 hr buPROPion hydrochloride 150 mg extended release oral tablet (2 sources) Aminoketone Start: 05-31-2021 buPROPion (WELLBUTRIN XL) 150 MG extended release tablet Completed/Discontinued Medications Medication Drug Class(es) Dates Sig (Normalized) Sig (Original) busPIRone hydrochloride 5 mg oral tablet (2 sources) Start: 02-26-2023 take 1 tablet by mouth twice daily as needed busPIRone HCl - 5 MG Oral Tablet TAKE 1 TABLET Twice daily PRN Quantity: 0 Refills: 0 Ordered: 26-Feb-2023 DO Start : 26-Feb-2023 Active Problems Active Problems Problem Classification Problem Date Documented Date Episodic/Chronic Allergic reactions (2 sources) Allergy status to narcotic agent status; Translations: [Allergy status to narcotic agent] Onset: 04-10-2022 Episodic Anxiety disorders (4 sources) Mixed anxiety and depressive disorder; Translations: [Other specified anxiety disorders] Onset: 08-02-2015 01-02-2017 Chronic Esophageal disorders (3 sources) Gastroesophageal reflux disease without esophagitis; Translations: [Gastro-esophageal reflux disease without esophagitis] Onset: 08-29-2019 08-29-2019 Chronic Mood disorders (1 source) Depressive disorder; Translations: [Depressive disorder, not elsewhere classified] Chronic Open wounds of extremities (1 source) Laceration of left elbow; Translations: [Laceration without foreign body of left elbow, initial encounter] Episodic Other connective tissue disease (1 source) Lateral epicondylitis of right humerus; Translations: [Lateral epicondylitis, right elbow] Episodic Other connective tissue disease (2 sources) Lateral epicondylitis, right elbow; Translations: [Lateral epicondylitis, right elbow] Onset: 04-10-2022 Episodic Other eye disorders (1 source) Pain around eye; Translations: [Other specified disorders of eyelid] 03-17-2023 Episodic Other non-traumatic joint disorders (2 sources) Pain in right elbow; Translations: [Pain in right elbow] Onset: 04-10-2022 Episodic Other nutritional; endocrine; and metabolic disorders (1 source) Obesity; Translations: [Obesity, unspecified] Chronic Other and delivery including normal (1 source) ; Translations: [ state, incidental] Episodic Residual codes; unclassified (1 source) Sleep disorder; Translations: [Sleep disturbance, unspecified] Episodic Superficial injury; contusion (1 source) Abrasion of unspecified finger, initial encounter; Translations: [Abrasion or friction burn of finger(s), without mention of infection] Episodic Past or Other Problems Problem Classification Problem Date Documented Da te Episodic/Chronic Nonspecific chest pain (2 sources) Other chest pain; Translations: [Other chest pain] Onset: 06-17-2021 Episodic Other lower respiratory disease (2 sources) Shortness of breath; Translations: [Shortness of breath] Onset: 06-17-2021 Episodic Other skin disorders (2 sources) Generalized hyperhidrosis; Translations: [Generalized hyperhidrosis] Onset: 06-17-2021 Episodic Residual codes; unclassified (2 sources) Tobacco use and exposure - finding; Translations: [Tobacco use] Onset: 01-02-2017 01-02-2017 Episodic Results Test Name Value Interpretation Reference Range Facil ity Vital Signs Date Time Vital Sign Value Performing Clinician Facility 03-17-2023 13:53-0400 Body height 162.6 cm Zulma Serra APRN.[employer] Work Phone: [facility] 03-17-2023 13:53-0400 Body temperature 97 [degF] Zulma Serra APRN.CONSTANTIN Work Phone: [facility] 03-17-2023 13:53-0400 Body weight 84.82 kg Zulma Serra APRN.CONSTANTIN Work Phone: [facility] 03-17-2023 13:53-0400 Diastolic blood pressure 67 mm[Hg] Zulma Serra APRN.CONSTANTIN Work Phone: [facility] 03-17-2023 13:53-0400 Heart rate 74 /min Zulma Serra AREA DEVELOPMENT MANAGER.[employer] Work Phone: [facility] 03-17-2023 13:53-0400 Respiratory rate 16 /min Zulma Serra AREA DEVELOPMENT MANAGER.[employer] Work Phone: [facility] 03-17-2023 13:53-0400 SaO2% (BldA) [Mass fraction] 97 % Zulma Serra AREA DEVELOPMENT MANAGER.[employer] Work Phone: [facility] 03-17-2023 13:53-0400 Systolic blood pressure 109 mm[Hg] Zulma Serra AREA DEVELOPMENT MANAGER.[employer] Work Phone: [facility] 02-26-2023 09:19-0400 Body height 162.56 cm Lizzy EntraTympanic Work Phone: [facility] Work Phone: 02-26-2023 09:19-0400 Body mass index (BMI) [Ratio] 31.98 kg/m2 [employer] Work Phone: [facility] Work Phone: 02-26-2023 09:19-0400 Body surface area Derived from formula 1.9 m2 [employer] Work Phone: [facility] Work Phone: 02-26-2023 09:19-0400 Body temperature 97.8 [degF] Lizzy EntraTympanic Work Phone: [facility] Work Phone: 02-26-2023 09:19-0400 Body weight 84.51 kg Lizzy EntraTympanic Work Phone: [facility] Work Phone: 02-26-2023 09:19-0400 Diastolic blood pressure 85 mm[Hg] Lizzycoin4ce Work Phone: [facility] Work Phone: 02-26-2023 09:19-0400 Heart rate 80 /min Lizzybrenda Calderónovic Work Phone: [facility] Work Phone: 02-26-2023 09:19-0400 Respiratory rate 18 /min Lizzybrenda King Work Phone: [facility] Work Phone: 02-26-2023 09:19-0400 SaO2% (BldA) [Mass fraction] 96 % Lizzy Christine Work Phone: [facility] Work Phone: 02-26-2023 09:19-0400 Systolic blood pressure 120 mm[Hg] Lizzybrenda King Work Phone: [facility] Work Phone: 04-10-2022 18:22-0400 Diastolic blood pressure 74 mm[Hg] Stewart Romo MD Work Phone: [facility] 04-10-2022 18:22-0400 Heart rate 66 /min Stewatr Romo MD Work Phone: [facility] 04-10-2022 18:22-0400 Respiratory rate 16 /min Stewart Romo MD Work Phone: [facility] 04-10-2022 18:22-0400 SaO2% (BldA) [Mass fraction] 99 % Stewart Romo MD Work Phone: [facility] 04-10-2022 18:22-0400 Systolic blood pressure 128 mm[Hg] Stewart Romo MD Work Phone: [facility] 04-10-2022 17:26-0400 Body height 162.6 cm Stweart Romo MD Work Phone: [facility] 04-10-2022 17:26-0400 Body mass index (BMI) [Ratio] 31.76 kg/m2 Stewart Romo MD Work Phone: [facility] 04-10-2022 17:26-0400 Body temperature 98.29 [degF] Stewart Romo MD Work Phone: [facility] 04-10-2022 17:26-0400 Body weight 83.92 kg Stewart Romo MD Work Phone: [facility] 03-18-2021 12:09-0400 Body height 162.6 cm Ming Link MD Work Phone: [facility] Work Phone: 03-18-2021 12:09-0400 Body mass index (BMI) [Ratio] 32.61 kg/m2 Ming Link MD Work Phone: [facility] Work Phone: 03-18-2021 12:09-0400 Body temperature 98.2 [degF] Ming Link MD Work Phone: [facility] Work Phone: 03-18-2021 12:09-0400 Body weight 86.18 kg Ming Link MD Work Phone: [facility] Work Phone: 03-18-2021 12:09-0400 Diastolic blood pressure 69 mm[Hg] Ming Link MD Work Phone: [facility] Work Phone: 03-18-2021 12:09-0400 Heart rate 92 /min Ming Link MD Work Phone: [facility] Work Phone: 03-18-2021 12:09-0400 Respiratory rate 14 /min Ming Link MD Work Phone: [facility] Work Phone: 03-18-2021 12:09-0400 SaO2% (BldA) [Mass fraction] 99 % Ming Link MD Work Phone: [facility] Work Phone: 03-18-2021 12:09-0400 Systolic blood pressure 136 mm[Hg] Ming Link MD Work Phone: [facility] Work Phone: Encounters Encounter Date Encounter Type Care Provider Facility Start: 07-24-2023 End: 07-24-2023 ambulatory [facility] Start: 06-05-2023 End: 06-05-2023 ambulatory [facility] Start: 03-17-2023 End: 03-17-2023 ambulatory [facility] Start: 03-17-2023 End: 03-17-2023 Patient encounter procedure Zulma Galindosathish KISER.[employer] Work Phone: [facility] Procedures Date Procedure Procedure Detail Performing Clinician Start: 04-10-2022 Radex elbow complete minimum 3 views Stewart Romo MD Work Phone: Operation on mouth Lizzy Pet rovic Work Phone: Plan of Treatment Date Care Activity Detail Author Start: 11-15-2030 DTaP/Tdap/Td vaccine (2 - Td or Tdap) DTaP/Tdap/Td vaccine (2 - Td or Tdap) [facility] Start: 11-15-2030 DTaP/Tdap/Td vaccine (2 - Tdap) DTaP/Tdap/Td vaccine (2 - Tdap) [facility] Work Phone: Start: 02-26-2024 PHYSICAL, Provider: Lizzy King, Status: Pen, Time: 9:00 AM PHYSICAL, Provider: Lizzy King, Status: Pen, Time: 9:00 AM [facility] Work Phone: Start: 03-30-2023 Influenza vaccination INFLUENZA (#1) [facility] Start: 03-30-2022 Influenza vaccination Flu vaccine (# 1) [facility] Start: 10-06-2021 COVID-19 VACCINE (4 - Pfizer series) COVID-19 VACCINE (4 - Pfizer series) [facility] Start: 03-30-2021 Influenza vaccination Flu vaccine (# 1) [facility] Work Phone: Start: 08-28-2019 HPV TESTING HPV TESTING [facility] Start: 08-28-2019 PAP TESTING PAP TESTING [facility] Start: 2019 Diabetes screen Diabetes screen [facility] Start: 2014 Screening for malign ant neoplasm of cervix [facility] Start: 2005 Screening for malign ant neoplasm of cervix [facility] Start: 2003 Urine microalbumin profile DTAP,TDAP,TD (1 - Tdap) [facility] Start: 2002 Hepatitis C screening Hepatitis C sc reen [facility] Start: 1999 HIV screening HIV screen [facility] Start: 1996 Depression Monitoring Depression Mon itoring [facility] Start: 1985 Varicella vaccine (1 of 2 - 2-dose childhood series) Varicella vaccine (1 of 2 - 2-dose childhood series) [facility] Start: 1984 Hepatitis C screening Hepatitis C sc reen [facility] Work Phone: Immunizations Immunization Date Immunization Notes Care Provider Jeffry pisano 08-11-2021 Comirnaty 30 MCG/0.3 ML Intramuscular Suspension Lizzy Christine Work Phone: [facility] 03-01-2021 Pfizer-BioNTech COVI D-19 Vacc 30 MCG/0.3ML Intramuscular Suspension Lizzy Christine Work Phone: [facility] 01-27-2021 Pfizer-BioNTech COVI D-19 Vacc 30 MCG/0.3ML Intramuscular Suspension Lizzy Christine Work Phone: [facility] 11-15-2020 tetanus toxoid, redu jessica diphtheria toxoid, and acellular pertussis vaccine, adsorbed Lizzy Christine [facility] Work Phone: 07-27-2020 influenza virus vacc ine, unspecified formulation Ming Link MD Work Phone: [facility] Work Phone: 07-27-2020 influenza, seasonal, injectable, preservative free Lizzy Christine [facility] Work Phone: 08-08-2019 Influenza, injectabl e, Madin Farrah Canine Kidney, preservative free, quadrivalent Ming Link MD Work Phone: [facility] Work Phone: 06-05-2018 influenza, injectabl e, quadrivalent, contains preservative Ming Link MD Work Phone: [facility] Work Phone: 05-25-2017 Influenza Vaccine, unspecified formulation Ming Link MD Work Phone: [facility] Work Phone: 05-19-2016 influenza, injectabl e, quadrivalent, contains preservative Ming Link MD Work Phone: [facility] 06-17-2008 influenza virus vacc ine, unspecified formulation Ming Link MD Work Phone: [facility] Work Phone: Payers Date Payer Category Payer Unknown [id number] 2016 Unknown 1984 Unknown [id number] [id number] 1984 Unknown [id number] [id number] 1984 Unknown [id number] [id number]. [id number] 1984 Unknown [id number] [id number]. [id number] 1984 Unknown [id number] [id number]. [id number] Social History Date Type Detail Facility Start: 05-15-2017 End: 03-18-2021 Tobacco smoking status [facility] Former smoker [facility] End: 2018 History of tobacco use Current smoker [facility] Start: 03-18-2021 End: 08-25-2022 Cigarettes smoked current (pack per day) - Reported [facility] Work Phone: Progress note 03-17-2023 Note Date & Type Note Facility 03-17-2023 Note HNO ID: [id number] Author: Zulma Serra APRN.[employer] Service: ? Author Type: Nurse Practitioner Type: Progress Notes Filed: 03/17/2023 2:07 PM Note Text: This note was created using NoteWriter. Subjective Julianne Oneal is a 38 year old female. HPI by patient: Julianne Oneal is a 38 year old presenting to the office with the complaint of right eye irritation. CC: (Has red under her eye started last night. Patient is 7 weeks ) Started yesterday. Associated symptoms include swelling of the lower eye lid, some itching, and tenderness. Denies dizziness, headache, change in vision, drainage, uri symptoms, fever, and cough. Covid Immunization Dates Overdue - COVID-19 VACCINE (4 - Pfizer series) Overdue since 10/06/2021 08/11/2021 Imm Admin: COVID-19 original vaccine, age 12+ yr, monovalent (PFIZER-BIONTECH - ORNELAS TOP) 03/01/2021 Imm Admin: COVID-19 original vaccine, age 12+ yr, monovalent (PFIZER-BIONTECH - PURPLE TOP) 01/27/2021 Imm Admin: COVID-19 original vaccine, age 12+ yr, monovalent (PFIZER-BIONTECH - PURPLE TOP) Sick contacts: none. Smoking history/second hand smoke: none. OTC not used. No antibiotic use in the last 60 days. ALLERGIES Morphine GI Upset, Vomiting Tylenol-Codeine #3 * Intolerance, GI Upset Family History Reviewed Including Cardiac Diseases, Psychiatric Diseases, AND Substance Abuse Problem: Hypertension Relation: Mother Age of Onset: (Not Specified) Problem: other (Narcolepsy) Relation: Mother Age of Onset: (Not Specified) Problem: other (Fibromyalgia) Relation: Father Age of Onset: (Not Specified) Problem: Hypertension Relation: Maternal Grandmother Age of Onset: (Not Specified) Problem: Cancer Relation: Maternal Grandmother Age of Onset: (Not Specified) Problem: Breast Cancer Relation: Maternal Grandmother Age of Onset: (Not Specified) Comment: diagnosed in her 30's Problem: Cervical Cancer Relation: Maternal Grandmother Age of Onset: (Not Specified) Problem: Prostate Cancer Relation: Maternal Grandfather Age of Onset: (Not Specified) Comment: Remission Problem: Developmental problem Relation: Brother Age of Onset: (Not Specified) Comment: down's Problem: Cancer Relation: Paternal Aunt Age of Onset: (Not Specified) Comment: thyroid, throat. Same aunt with ovarian cancer Problem: Colon Cancer Relation: Other Age of Onset: (Not Specified) Comment: mggf Problem: Stroke Relation: Other Age of Onset: (Not Specified) Problem: Cervical Cancer Relation: Paternal Aunt Age of Onset: (Not Specified) Problem: Ovarian cancer Relation: Paternal Aunt Age of Onset: (Not Specified) Social History Tobacco Use Smoking status: Former Packs/day: 1.5 Types: Cigarettes Smokeless tobacco: Never Alcohol use: No Comment: recovering alcoholic, seeing steps, sober 05/12 Drug use: No Active Ambulatory Problems Routine gynecological examination Date Noted: 05/04/2010 Depression with anxiety Date Noted: 08/02/2015 Resolved Ambulatory Problems Supervision of other normal Date Noted: 07/13/2006 Past Medical History: No date: Alcoholism ([facility]) 03/09/09: Encounter for insertion or removal of intrauterine contraceptive device No date: PMH - PAST MEDICAL HISTORY OF No date: PMH - PAST MEDICAL HISTORY OF No date: Urinary tract infection, site not specified Review of Systems Constitutional: Negative. HENT: Negative. Eyes: Positive for pain, redness (lower right lid) and itching. Negative for photophobia, discharge and visual disturbance. Respiratory: Negative. Cardiovascular: Negative. Gastrointestinal: Negative. Endocrine: Negative. Genitourinary: Negative. Musculoskeletal: Negative. Skin: Negative. Neurological: Negative. Hematological: Negative. Objective BP 109/67 Pulse 74 Temp 36.1 ?C (97 ?F) Resp 16 Ht 162.6 cm (5' 4 ) Wt 84.8 kg (187 lb) LMP 01/12/2009 SpO2 97% BMI 32.10 kg/m? Physical Exam Vitals reviewed. Constitutional: General: She is not in acute distress. Appearance: She is not ill-appearing, toxic-appearing or diaphoretic. Eyes: General: Right eye: No discharge. Right eye hordeolum: right lower lid swelling, appears to be the start of a hordeolum. Left eye: No discharge or hordeolum. Extraocular Movements: Extraocular movements intact. Conjunctiva/sclera: Right eye: Right conjunctiva is injected (slightly). Left eye: Left conjunctiva is not injected. Pupils: Pupils are equal, round, and reactive to light. Cardiovascular: Rate and Rhythm: Normal rate and regular rhythm. Pulmonary: Effort: Pulmonary effort is normal. Breath sounds: Normal breath sounds. Psychiatric: Behavior: Behavior is cooperative. Assessment and Plan (H02.89, H02.843) Pain and swelling of eyelid of right eye (primary encounter diagnosis) Plan: erythromycin (ROMYCIN) 5 mg/gram (0.5 %) ophthalmic ointment Right lower lid swe (more content not included)... [facility] History of Present illness Narrative 03-17-2023 Zulma Serra APRN.[employer] - 03/17/2023 1:55 PM EDT Note Date & Type Note Facility 03-17-2023 History of Presen t illness Narrative This note was created using NoteWriter. Subjective Julianne Oneal is a 38 year old female. HPI by patient: Julianne Oneal is a 38 year old presenting to the office with the complaint of right eye irritation. CC: (Has red under her eye started last night. Patient is 7 weeks ) Started yesterday. Associated symptoms include swelling of the lower eye lid, some itching, and tenderness. Denies dizziness, headache, change in vision, drainage, uri symptoms, fever, and cough. Covid Immunization Dates Overdue - COVID-19 VACCINE (4 - Pfizer series) Overdue since 10/06/2021 08/11/2021 Imm Admin: COVID-19 original vaccine, age 12+ yr, monovalent (PFIZER-BIONTECH - ORNELAS TOP) 03/01/2021 Imm Admin: COVID-19 original vaccine, age 12+ yr, monovalent (PFIZER-BIONTECH - PURPLE TOP) 01/27/2021 Imm Admin: COVID-19 original vaccine, age 12+ yr, monovalent (PFIZER-BIONTECH - PURPLE TOP) Sick contacts: none. Smoking history/second hand smoke: none. OTC not used. No antibiotic use in the last 60 days. ALLERGIES Morphine GI Upset, Vomiting Tylenol-Codeine #3 * Intolerance, GI Upset Family History Reviewed Including Cardiac Diseases, Psychiatric Diseases, & Substance Abuse Problem: Hypertension Relation: Mother Age of Onset: (Not Specified) Problem: other (Narcolepsy) Relation: Mother Age of Onset: (Not Specified) Problem: other (Fibromyalgia) Relation: Father Age of Onset: (Not Specified) Problem: Hypertension Relation: Maternal Grandmother Age of Onset: (Not Specified) Problem: Cancer Relation: Maternal Grandmother Age of Onset: (Not Specified) Problem: Breast Cancer Relation: Maternal Grandmother Age of Onset: (Not Specified) Comment: diagnosed in her 30's Problem: Cervical Cancer Relation: Maternal Grandmother Age of Onset: (Not Specified) Problem: Prostate Cancer Relation: Maternal Grandfather Age of Onset: (Not Specified) Comment: Remission Problem: Developmental problem Relation: Brother Age of Onset: (Not Specified) Comment: down's Problem: Cancer Relation: Paternal Aunt Age of Onset: (Not Specified) Comment: thyroid, throat. Same aunt with ovarian cancer Problem: Colon Cancer Relation: Other Age of Onset: (Not Specified) Comment: mggf Problem: Stroke Relation: Other Age of Onset: (Not Specified) Problem: Cervical Cancer Relation: Paternal Aunt Age of Onset: (Not Specified) Problem: Ovarian cancer Relation: Paternal Aunt Age of Onset: (Not Specified) Social History Tobacco Use Smoking status: Former Packs/day: 1.5 Types: Cigarettes Smokeless tobacco: Never Alcohol use: No Comment: recovering alcoholic, seeing steps, sober 05/12 Drug use: No Active Ambulatory Problems Routine gynecological examination Date Noted: 05/04/2010 Depression with anxiety Date Noted: 08/02/2015 Resolved Ambulatory Problems Supervision of other normal Date Noted: 07/13/2006 Past Medical History: No date: Alcoholism ([facility]) 03/09/09: Encounter for insertion or removal of intrauterine contraceptive device No date: PMH - PAST MEDICAL HISTORY OF No date: PMH - PAST MEDICAL HISTORY OF No date: Urinary tract infection, site not specified Review of Systems Constitutional: Negative. HENT: Negative. Eyes: Positive for pain, redness (lower right lid) and itching. Negative for photophobia, discharge and visual disturbance. Respiratory: Negative. Cardiovascular: Negative. Gastrointestinal: Negative. Endocrine: Negative. Genitourinary: Negative. Musculoskeletal: Negative. Skin: Negative. Neurological: Negative. Hematological: Negative. Objective BP 109/67 Pulse 74 Temp 36.1 C (97 F) Resp 16 Ht 162.6 cm (5' 4 ) Wt 84.8 kg (187 lb) LMP 01/12/2009 SpO2 97% BMI 32.10 kg/m Physical Exam Vitals reviewed. Constitutional: General: She is not in acute distress. Appearance: She is not ill-appearing, toxic-appearing or diaphoretic. Eyes: General: Right eye: No discharge. Right eye hordeolum: right lower lid swelling, appears to be the start of a hordeolum. Left eye: No discharge or hordeolum. Extraocular Movements: Extraocular movements intact. Conjunctiva/sclera: Right eye: Right conjunctiva is injected (slightly). Left eye: Left conjunctiva is not injected. Pupils: Pupils are equal, round, and reactive to light. Cardiovascular: Rate and Rhythm: Normal rate and regular rhythm. Pulmonary: Effort: Pulmonary effort is normal. Breath sounds: Normal breath sounds. Psychiatric: Behavior: Behavior is cooperative. Assessment and Plan (H02.89, H02.843) Pain and swelling of eyelid of right eye (primary encounter diagnosis) Plan: erythromycin (ROMYCIN) 5 mg/gram (0.5 %) ophthalmic ointment Right lower lid swelling. Appears to be the start of a hordeolum (stye). Will have patient use erythromycin ointment. -Wash hands before and after touching the eye. Do not rub the eye. -Warm compress to remove any drainage if there is any. Cool compress for comfort or itchiness. -If no improvement in 48 hours please follow up with Ophthalmology -Warning symptoms: sudden loss of vision, sharp eye pain, sudden blurry vision, dizziness, increased redness/warmth/swelling to the lid, and fever. -Be seen immediately with warning symptoms. The patient will pursue further outpatient evaluation with the primary care physician or another Urgent Care/Express Care as outlined in the after visit summary. The patient is agreeable to this plan of care and follow-up instructions have been explained in detail. The patient has received these instructions in written format and have expressed an understanding of the after visit summary. Medical Decision Making: Level: 4 - Moderate I spent a total of 20 minutes on the date of the service which included preparing to see the patient, [id number] patient care, completing clinical documentation, obtaining and/or reviewing separately obtained history, performing a medically appropriate examination, counseling and educating the patient/family/caregiver, and ordering medications, tests, or procedures. documented in this encounter [facility] Instructions 03-17-2023 Patient Instructions Note Date & Type Note Facility 03-17-2023 Instructions Zulma Serra APRN.CNP - 03/17/2023 1:55 PM EDT (H02.89, H02.843) Pain and swelling of eyelid of right eye (primary encounter diagnosis) Plan: erythromycin (ROMYCIN) 5 mg/gram (0.5 %) ophthalmic ointment Right lower lid swelling. Appears to be the start of a hordeolum (stye). Will have patient use erythromycin ointment. -Wash hands before and after touching the eye. Do not rub the eye. -Warm compress to remove any drainage if there is any. Cool compress for comfort or itchiness. -If no improvement in 48 hours please follow up with Ophthalmology -Warning symptoms: sudden loss of vision, sharp eye pain, sudden blurry vision, dizziness, increased redness/warmth/swelling to the lid, and fever. -Be seen immediately with warning symptoms. documented in this encounter [facility] History of Present illness Narrative 02-25-2023 Note Date & Type Note Facility 02-25-2023 History of Present illness Narrative 37-year-old female presents today to establish care.Acute concerns today: Newly - + home test yesterday 02/25/23. Has notified he OBGYN office.Chronic conditions reviewed:Reviewed Medications, PMH, PSH, social hx, Fam hx, Immunizations, medications and allergies.InsomniazzzQuil nightly - reviewed w patient that occasional use of diphenhydramine in is considered safe. Still advised to avoid if possible.Depression and Anxietyhas a lot of stress over children. Finds self to be short tempered. feels that anxiety is worse than depression.Due to recent and childbirth (has 2 year old son) states she had just continued to follow up w COMPANION for anxiety/depression management. At this time is taking Desvenlafaxine but has reached out to FINISHER OPERATOR who has just not sent in a new prescription for sertraline 50 mg daily and patient will stop the desvenlafaxine today. She does take buspirone 5 mg p.o. twice daily as needed for anxiety-buspirone is considered to be safe in (animal studies did not show adverse effects on fetus) still advised to avoid if possible and review with FINISHER OPERATOR if she would like to continue. States only takes the medication as needed which is seldom. FINISHER OPERATOR is Dr. Marivel Abreu.Reports that she also follows with a therapist-is in counseling x 3-4 years now. Finds this very helpful.Diet: no special diets, stress eating, concerned about her weight, eating pasta bread.Exercise: no routine activity but busy household w teenagers and a 2 year old ( 19, 18, 16, 2 yr old son)Home environment: lives at home with familyOccupation: stay at home momSocial history reviewedDental: every 3 months, gum diseaseOphtho: follows w ophtho yearly has glassess for reading, sewing and driving at night when it is rainingScreenings: Pap- up to date follows w COMPANION Last in October 2022, unsure about HPV testing at that timeImmunizations: flu, Tdap, covid, -reviewed -[facility] Work Phone: Hospital Discharge instructions 04-10-2022 Discharge InstructionsAttachments Note Date & Type Note Facility 04-10-2022 Hospital Discharg e instructions Stewart Romo MD - 04/10/2022 6:01 PM EDT Use the Kunal wrap for the next 5 days. Apply a heating pad at low heat. Take Naprosyn for the inflammation. See your physician if there is no improvement in 1 week. The following attachments cannot be sent through Care Everywhere.Elbow: Tennis (Indian)documented in this encounter [facility] Work Phone: History of Past illness Narrative 07-13-2006 Note Date & Type Note Facility documented as of this encounter (statuses as of 03/17/2023) [facility] Evaluation note Note Date & Type Note Facility documented in this encounter [facility] Work Phone: Evaluation note Note Date & Type Note Facility documented in this encounter [facility] Work Phone: Evaluation note Note Date & Type Note Facility documented in this encounter [facility] Hospital Discharge instructions Attachments Note Date & Type Note Facility Hospital Discharge instructions The following attachments cannot be sent through Care Everywhere.Lacerations: Adhesives (Indian)Abrasions (Indian)documented in this encounter [facility] Work Phone: Advance Directives No Advanced Directives Records FoundDocuments on File Type Date Recorded Patient Cloth Folder Hand Expl anation ACP-Advance Directive ACP-Power of Solo Musician Latest Code Status on File Code Status Date Activated Date Inactivated Comments Full Code 04/25/2019 6:16 AM 04/25/2019 12:24 PM Summary Purpose Family History No Family History Records FoundUnknown Family Member Name Dates Details Family history of hypertensi on: Mother(V17.49, Z82.49) Status:Active Alcohol abuse: Father, Sibli ng(305.00, F10.10) Status:Active Family history of malignant neoplasm: Maternal Aunt, Paternal Aunt(V16.9, Z80.9) Comments:Breast cancer - mat ernal aunt, Thyroid cancer- Paternal aunt. Maternal grandfather- prostate cancer; Status:Active Thyroid trouble: Sibling Comments:brother- graves dis ease; Status:Active Family history of Down syndr ome: Sibling(V19.5, Z82.79) Comments:Brother; Status:Active Chief Complaint * NPV * Discuss weight loss * Discuss medications * Found out yesterday she is Additional Source Comments Reason for Visit (unrecogniz ed section and content) Reason Comments Arm Pain Reason Comments Eye Problem Has red under her ey e started last night. Patient is 7 weeks Ordered Prescriptions (unrec ognized section and content) Care Teams (unrecognized sec tion and content) Entry Driver Operator Relationship Specialty Start Date End Date Jennifer Park [address] [place] [address] PCP - General Internal Medicine 05/15/17 INFORMATION SOURCE (unrecogn ized section and content) DATE CREATED AUTHOR AUTHOR'S ORGANIZ ATION 04/11/2022 [facility] DATE CREATED AUTHOR AUTHOR'S ORGANIZ ATION 11/22/2022 [facility] DATE CREATED AUTHOR AUTHOR'S ORGANIZ ATION 02/26/2023 [facility] [place] DATE CREATED AUTHOR AUTHOR'S ORGANIZ ATION 02/27/2023 [employer] DATE CREATED AUTHOR AUTHOR'S ORGANIZ ATION 03/18/2023 [facility] DATE CREATED AUTHOR AUTHOR'S ORGANIZ ATION 07/26/2023 [facility] Source Comments (unrecognize d section and content) In the event this informatio n is protected by the Federal Confidentiality of Alcohol and Drug Abuse Patient Records regulations: The Federal rules restrict any use of the information to criminally investigate or prosecute any alcohol or drug abuse patient.[facility] FOR RECORDS PERTAINING TO PATIENTS WHO ARE OR HAVE BEEN ENROLLED IN A CHEMICAL DEPENDENCY/SUBSTANCEABUSE PROGRAM, SOME INFORMATION MAY BE OMITTED. This clinical summary was aggregated from multiple sources. Caution should be exercised in using it in the provision of clinical care. This summary normalizes information from multiple sources, and as a consequence, information in this document may materially change the coding, format and clinical context of patient data. In addition, data may be omitted in some cases. CLINICAL DECISIONS SHOULD BE BASED ON THE PRIMARY CLINICAL RECORDS. [employer] provides no warranty or guarantee of the accuracy or completeness of information in this document.
[2023-07-29 18:34] VITALS: BP 129/82; PULSE 78; PULSE 80; TEMP 36.7; O2SAT 98
[2023-07-29 18:39] VITALS: BMI 35.7
[2023-07-29 19:49] LABS: Bacteria 0 SEEN /hpf (None Seen); Mucous, Urine 0 SEEN /hpf (<or=2+); Red Blood Cells-Urine 0 SEEN /hpf (0-5); Squamous Epithelial Cells - UA 0 SEEN /hpf (5-10); White Blood Cells 0 SEEN /hpf (0-5)
[2023-07-29 19:51] LABS: Absolute Lymphocyte Count 1.25 X10^3/uL (0.83-4.51); Absolute Neutrophil Count 6.9 X10^3/uL (2.0-7.7); Basophil# 0.05 X10^3/uL; Basophil% 0.5 % (0-1); Eosinophil# 0.12 X10^3/uL; Eosinophils% 1.3 % (0-5); Hematocrit 38.3 % (37-47); Hemoglobin 12.3 g/dL (12.0-15.0); Lymphocyte # 1.25 X10^3/ul (0.83-4.51); Lymphocyte % 13.6 % (19-41); Mean Corp Hgb Conc 32.1 g/dL (32-36); Mean Corpuscular Hgb 30.8 pg (27.0-32.0); Mean Platelet Vol. 9.3 fl (6.2-12.0); Monocyte# 0.88 X10^3/uL; Monocyte% 9.5 % (0-10); NRBC Flagged by Analyzer 0 % (0-5); Neutrophil # 6.86 X10^3/uL (2.7-7.7); Neutrophil % 74.4 % (47-70); Platelet Count 319 K/mm3 (150-450); RBC Distribution Width SD 45.3 fl (35.1-43.9); Red Blood Count 3.99 M/mm3 (4.2-5.4); White Blood Count 9.2 K/mm3 (4.4-11.0)
[2023-07-29 19:53] LABS: Color, Urine Yellow (Yellow); Glucose, Dipstick Normal (Normal); Ketone-Dipstick Negative (Negative); Leukocyte Esterase-Dipstick Negative /ul (Negative); Nitrite-Dipstick Negative (Negative); Occult Blood-Urine Negative /ul (Negative); Protein-Dipstick Negative (Negative); Specific Gravity, Urine 1.015 (1.002-1.030); Urine Bilirubin Dipstick Negative (Negative); Urine Clarity Clear (Clear); Urine Urobilinogen Normal (Normal); Urine pH 6.5 (5.0 - 8.0)
--- NOTE | 2023-07-31 17:29 | OB.TRI.PN ---
Progress Notes Date of Service: 07/29/23 Progress Note: Patient presents for triage evaluation secondary to abdominal pain, pelvic pressure FHT: 140s present [place]: no regular Contractions Assessment and plan: abdominal pain, reassuring evaluation of labs and no labor, cervix closed. reassuring maternal and status patient discharged to home to follow-up as aury. See problem list details for additional plan information. Laboratory Studies: Laboratory Tests 07/29/23 07/29/23 Range/Units Unknown 19:40 WBC 9.2 (4.4-11.0) K/mm3 RBC 3.99 L (4.2-5.4) M/mm3 Hgb 12.3 (12.0-15.0) g/dL Hct 38.3 (37-47) % MCV 96.0 (81-99) fL MCH 30.8 (27.0-32.0) pg MCHC 32.1 (32-36) g/dL RDW Std Deviation 45.3 H (35.1-43.9) fl RDW Coeff of Krys 13.0 (11.6-14.6) % Plt Count 319 (150-450) K/mm3 MPV 9.3 (6.2-12.0) fl Immature Gran % (Auto) 0.700 (0.0-0.9) % Neut % (Auto) 74.4 H (47-70) % Lymph % (Auto) 13.6 L (19-41) % [place] % (Auto) 9.5 (0-10) % Eos % (Auto) 1.3 (0-5) % Baso % (Auto) 0.5 (0-1) % Absolute Neuts (auto) 6.9 (2.0-7.7) X10^3/uL Absolute Lymphs (auto) 1.25 (0.83-4.51) X10^3/uL Nucleated RBC % 0 (0-5) % Urine Color Yellow (Yellow) Urine Clarity Clear (Clear) Urine pH 6.5 (5.0 - 8.0) Ur Specific [place] 1.015 (1.002-1.030) Urine Protein Negative (Negative) mg/dl Urine Glucose (UA) Normal (Normal) mg/dl Urine Ketones Negative (Negative) mg/dl Urine Occult Blood Negative (Negative) /ul Urine Nitrite Negative (Negative) Urine Bilirubin Negative (Negative) mg/dL Urine Urobilinogen Normal (Normal) mg/dl Ur Leukocyte Esterase Negative (Negative) /ul Urine RBC 0 SEEN (0-5) /hpf Urine WBC 0 SEEN (0-5) /hpf Ur Squamous Epith Cells 0 SEEN (5-10) /hpf Urine Bacteria 0 SEEN (None Seen) /hpf Urine Mucus 0 SEEN (<or=2+) /hpf
== END 2023-07-29 20:20 | disposition home or self-care (01) ==
LOC: WPOUT 18:21 → WP 18:21
PROVIDERS: Referring Provider Obstetrics & Gynecology; Visit Provider Obstetrics & Gynecology
DX: O99.891 Other specified diseases and conditions complicating pregnancy (principal); R10.9 Unspecified abdominal pain; Z3A.00 Weeks of gestation of pregnancy not specified
CPT/HCPCS: 36415; 59025; 59050; 81001; 85025; 87086; 99221; G0378

== ENCOUNTER → 2023-08-02 | Outpatient (CLI) | payer BC, SELFPAY ==
[2023-08-02 08:30] LABS: Absolute Lymphocyte Count 1.11 X10^3/uL (0.83-4.51); Absolute Neutrophil Count 7.1 X10^3/uL (2.0-7.7); Basophil# 0.03 X10^3/uL; Basophil% 0.3 % (0-1); Eosinophil# 0.13 X10^3/uL; Eosinophils% 1.4 % (0-5); Hematocrit 35.6 % (37-47); Hemoglobin 11.6 g/dL (12.0-15.0); Lymphocyte # 1.11 X10^3/ul (0.83-4.51); Lymphocyte % 12.3 % (19-41); Mean Corp Hgb Conc 32.6 g/dL (32-36); Mean Corpuscular Hgb 30.9 pg (27.0-32.0); Mean Corpuscular Volume 94.9 fL (81-99); Mean Platelet Vol. 9.2 fl (6.2-12.0); Monocyte# 0.55 X10^3/uL; Monocyte% 6.1 % (0-10); NRBC Flagged by Analyzer 0 % (0-5); Neutrophil # 7.13 X10^3/uL (2.7-7.7); Neutrophil % 79.3 % (47-70); Platelet Count 293 K/mm3 (150-450); RBC Distribution Width SD 44.5 fl (35.1-43.9); Red Blood Count 3.75 M/mm3 (4.2-5.4)
--- OUTSIDE RECORDS SUMMARY | 2023-08-02 08:47 | XMS RPT_ITS | CCD ---
Author Name Unknown Address [address] [place] [address] Organization [facility] Care Team Providers Care Sap Treasury Consultant Name Role Phone Jennifer Park DO Primary Care Provider [phone] Setwart Romo Attending Unavailable Jennifer Park Referring Unavailable Jennifer Park Primary Care Unavailable Jennifer Park Unavailable Jennifer Park Referring Unavailable Jennifer Park [...] DEINE] Drug Allergy 6 Intolerance, GI Upset [facility] Other [facility] (1 source) Acetaminophen / Codeine; Translations: [Tylenol with Codeine #3] Drug Allergy [facility] Work Phone: (1 source) Morphine Derivatives; Translations: [Morphine Derivatives] Allergy to drug (finding) [facility] Work Phone: Medications Current Medications Medication Drug [...] 13:53-0400 Body height 162.6 cm Zulma Serra APRN.CONSTANTIN Work Phone: [facility] 03-17-2023 13:53-0400 Body temperature 97 [degF] Zulma Serra APRN.CONSTANTIN Work Phone: [facility] 03-17-2023 13:53-0400 Body weight 84.82 kg Zulma Serra APRN.CONSTANTIN Work Phone: [facility] 03-17-2023 13:53-0400 Diastolic blood pressure 67 mm[Hg] Zulma Serra APRN.CONSTANTIN Work Phone: [facility] 03-17-2023 13:53-0400 Heart rate 74 /min Zulma Serra CRYPTOGRAPHIC TECHNICIAN.STRINGER UP SOLDERING MACHINE Work Phone: [facility] 03-17-2023 13:53-0400 Respiratory rate 16 /min Zulma Serra CRYPTOGRAPHIC TECHNICIAN.STRINGER UP SOLDERING MACHINE Work Phone: [facility] 03-17-2023 13:53-0400 SaO2% (BldA) [Mass fraction] 97 % Zulma Serra CRYPTOGRAPHIC TECHNICIAN.STRINGER UP SOLDERING MACHINE Work Phone: [facility] 03-17-2023 13:53-0400 Systolic blood pressure 109 mm[Hg] Zulma Serra CRYPTOGRAPHIC TECHNICIAN.STRINGER UP SOLDERING MACHINE Work Phone: [facility] 02-26-2023 09:19-0400 Body height 162.56 cm Lizzy VMob Work Phone: [employer] [facility] Work Phone: 02-26-2023 09:19-0400 Body mass index (BMI) [Ratio] 31.98 kg/m2 Dest[employer]er Work Phone: [employer] Work Phone: 02-26-2023 09:19-0400 Body surface area Derived from formula 1.9 m2 [employer] Work Phone: [facility] Work Phone: 02-26-2023 09:19-0400 Body temperature 97.8 [degF] Lizzy VMob Work Phone: [facility] Work Phone: 02-26-2023 09:19-0400 Body weight 84.51 kg Lizzy VMob Work Phone: [facility] Work Phone: 02-26-2023 09:19-0400 Diastolic blood pressure 85 mm[Hg] LizzyTeqcycle Work Phone: [facility] Work Phone: 02-26-2023 09:19-0400 Heart rate 80 /min Lizzybrenda Calderónovic Work Phone: [facility] Work Phone: 02-26-2023 09:19-0400 Respiratory rate 18 /min Lizzybrenda King Work Phone: [facility] Work Phone: 02-26-2023 09:19-0400 SaO2% (BldA) [Mass fraction] 96 % Lizzy Christine Work Phone: [facility] Work Phone: 02-26-2023 09:19-0400 Systolic blood pressure 120 mm[Hg] Lizzybrenda King Work Phone: [facility] Work Phone: 04-10-2022 18:22-0400 Diastolic blood pressure 74 mm[Hg] Stewart Romo MD Work Phone: [facility] 04-10-2022 18:22-0400 Heart rate 66 /min Stewart Romo MD Work Phone: [facility] 04-10-2022 18:22-0400 Respiratory rate 16 /min Stewart Romo MD Work Phone: [facility] 04-10-2022 18:22-0400 SaO2% (BldA) [Mass fraction] 99 % Stewart Romo MD Work Phone: [facility] 04-10-2022 18:22-0400 Systolic blood pressure 128 mm[Hg] Stewart Romo MD Work Phone: [facility] 04-10-2022 17:26-0400 Body height 162.6 cm Stewart Romo MD Work Phone: [facility] 04-10-2022 17:26-0400 Body mass index (BMI) [Ratio] 31.76 kg/m2 Stewart Romo MD Work Phone: [facility] 04-10-2022 17:26-0400 Body temperature 98.29 [degF] Stewart Romo MD Work Phone: [facility] 04-10-2022 17:26-0400 Body weight 83.92 kg Stewart Romo MD Work Phone: [facility] 03-18-2021 12:09-0400 Body height 162.6 cm Ming iLnk MD Work Phone: [facility] Work Phone: 03-18-2021 12:09-0400 Body mass index (BMI) [Ratio] 32.61 kg/m2 Ming Link MD Work Phone: [facility] Work Phone: 03-18-2021 12:09-0400 Body temperature 98.2 [degF] Ming Link MD Work Phone: [facility] Work Phone: 03-18-2021 12:09-0400 Body weight 86.18 [...] 99 % Ming Link MD Work Phone: [facility] Work Phone: 03-18-2021 12:09-0400 Systolic blood pressure 136 mm[Hg] Ming Link MD Work Phone: [facility] Work Phone: Encounters Encounter Date Encounter Type Care Provider Facility Start: 07-24-2023 End: 07-24-[address] [facility] Start: 06-05-2023 End: 06-05-[address] [facility] Start: 03-17-2023 End: 03-17-2023 ambulatory [facility] Facility:[facility] Start: 03-17-2023 End: 03-17-2023 Patient encounter procedure Zulma Galindosathish KISER.STRINGER UP SOLDERING MACHINE Work Phone: [facility] Procedures Date Procedure Procedure [...] Lizzy King, Status: Pen, Time: 9:00 AM [facility] Work Phone: Start: 03-30-2023 Influenza vaccination INFLUENZA (#1) [facility] Start: 03-30-2022 Influenza vaccination Flu vaccine (# 1) [facility] Start: 10-06-2021 COVID-19 VACCINE (4 - Pfizer series) COVID-19 VACCINE (4 - Pfizer series) [facility] Start: 03-30-2021 Influenza vaccination Flu vaccine (# 1) [facility] Work Phone: Start: 08-28-2019 HPV TESTING HPV TESTING [facility] Start: 08-28-2019 PAP TESTING PAP TESTING [facility] Start: 2019 Diabetes screen Diabetes screen [facility] Start: 2014 Screening for malign ant neoplasm of cervix [facility] Start: 2005 Screening for malign ant neoplasm of cervix [facility] Start: 2003 Urine microalbumin profile DTAP,TDAP,TD (1 - Tdap) [facility] Start: 2002 Hepatitis C screening Hepatitis C sc reen [facility] Start: 1999 HIV screening HIV screen [facility] Start: 1996 Depression Monitoring Depression Mon itoring [facility] Start: 1985 Varicella vaccine (1 of 2 - 2-dose childhood series) Varicella vaccine (1 of 2 - 2-dose childhood series) [facility] Start: 1984 Hepatitis C screening Hepatitis C sc reen [facility] Work Phone: Immunizations Immunization Date Immunization Notes Care Provider Jeffry pisano 08-11-2021 Comirnaty 30 MCG/0.3 ML Intramuscular Suspension Lizzy Chritsine Work Phone: [facility] 03-01-2021 Pfizer-BioNTech COVI D-19 Vacc 30 MCG/0.3ML Intramuscular Suspension Lizzy Christine Work Phone: [facility] 01-27-2021 Pfizer-BioNTech COVI D-19 Vacc 30 MCG/0.3ML Intramuscular Suspension Lizzy Christine Work Phone: [facility] 11-15-2020 tetanus toxoid, redu jessica diphtheria toxoid, and acellular pertussis vaccine, adsorbed [facility]zy Christine [facility] Work Phone: 07-27-2020 influenza virus vacc ine, unspecified formulation Ming Link MD Work Phone: [facility] Work Phone: 07-27-2020 influenza, seasonal, injectable, preservative free Lizzy Christine [facility] Work Phone: 08-08-2019 Influenza, injectabl e, Madin [place] Canine Kidney, preservative free, quadrivalent Ming Link MD Work Phone: [facility] Work Phone: 06-05-2018 influenza, injectabl e, quadrivalent, contains preservative Ming Link MD Work Phone: [facility] Work Phone: 05-25-2017 Influenza Vaccine, unspecified formulation Ming Link MD Work Phone: [facility] Work Phone: 05-19-2016 influenza, injectabl e, quadrivalent, contains preservative Ming Link MD Work Phone: [facility] 06-17-2008 influenza virus vacc ine, unspecified formulation Ming Link MD Work Phone: [facility] Work Phone: Payers Date Payer Category Payer Unknown [id number] 2016 Unknown 1984 Unknown [id number] [id number]. [id number] 1984 Unknown [id number] [id number]. [id number] 1984 Unknown [id number] [id number]. [id number] 1984 Unknown [id number] [id number]. [id number] 1984 Unknown [id number] [id number]. [id number] Social History Date Type Detail Facility Start: 05-15-2017 End: 03-18-2021 Tobacco smoking status [facility] Former smoker [facility] End: 2018 History of tobacco use Current smoker [facility] Start: 03-18-2021 End: 08-25-2022 Cigarettes smoked current (pack per day) - Reported [facility] Work Phone: Progress note 03-17-2023 Note Date & Type Note Facility 03-17-2023 Note HNO ID: [id number] Author: Zulma Serra APRN.STRINGER UP SOLDERING MACHINE Service: ? Author Type: Nurse Practitioner Type: [...] 07/13/2006 Past Medical History: No date: [facility] 03/09/09: Encounter for insertion or removal of [...] lower lid swe (more content not included)... [facility] History of Present illness Narrative 03-17-2023 Zulma Serra APRN.STRINGER UP SOLDERING MACHINE - 03/17/2023 1:55 PM EDT Note Date & Type Note Facility 03-17-2023 History of Presen t illness Narrative This note was created using NoteWriter. Subjective Julinane Oneal is a 38 year old female. [...] which included preparing to see the patient, [id number] patient care, completing clinical documentation, obtaining and/or reviewing separately obtained history, performing a medically appropriate examination, counseling and educating the patient/family/caregiver, and ordering medications, tests, or procedures. documented in this encounter [facility] Instructions 03-17-2023 Patient Instructions Note Date [...] with warning symptoms. documented in this encounter [facility] History of Present illness Narrative 02-25-2023 [...] had just continued to follow up w HANGAR ATTENDANT for anxiety/depression management. At this time is taking Desvenlafaxine but has reached out to LAB TECHNICIAN who has just not sent in a new prescription for sertraline 50 mg daily and patient will stop the desvenlafaxine today. She does take buspirone 5 mg p.o. twice daily as needed for anxiety-buspirone is considered to be safe in (animal studies did not show adverse effects on fetus) still advised to avoid if possible and review with LAB TECHNICIAN if she would like to continue. States only takes the medication as needed which is seldom. LAB TECHNICIAN is Dr. Marivel Abreu.Reports that she also [...] rainingScreenings: Pap- up to date follows w HANGAR ATTENDANT Last in October 2022, unsure about HPV testing at that timeImmunizations: flu, Tdap, covid, -reviewed -[facility] Work Phone: Hospital Discharge instructions 04-10-2022 Discharge [...] cannot be sent through Care Everywhere.Elbow: Tennis (Bolivian)documented in this encounter [facility] Work Phone: History of Past illness Narrative 07-13-2006 Note Date & Type Note Facility documented as of this encounter (statuses as of 03/17/2023) [facility] Evaluation note Note Date & Type Note Facility documented in this encounter [facility] Work Phone: Evaluation note Note Date & Type Note Facility documented in this encounter [facility] Work Phone: Evaluation note Note Date & Type Note Facility documented in this encounter [facility] Hospital Discharge instructions Attachments Note Date & Type Note Facility Hospital Discharge instructions The following attachments cannot be sent through Care Everywhere.Lacerations: Adhesives (Bolivian)Abrasions (Bolivian)documented in this encounter [facility] Work Phone: Advance Directives No Advanced Directives Records FoundDocuments on File Type Date Recorded Patient Flexographic Press Operator Expl anation ACP-Advance Directive ACP-Power of Paradichlorobenzene Tender Latest Code Status on File Code Status [...] Care Teams (unrecognized sec tion and content) Sap Treasury Consultant Relationship Specialty Start Date End Date Jennifer Park [address] [place] [address] PCP - General Internal Medicine 05/15/17 INFORMATION SOURCE (unrecogn ized section and content) DATE CREATED AUTHOR AUTHOR'S ORGANIZ ATION 04/11/2022 [facility] DATE CREATED AUTHOR AUTHOR'S ORGANIZ ATION 11/22/2022 [facility] DATE CREATED AUTHOR AUTHOR'S ORGANIZ ATION 02/26/2023 [facility] DATE CREATED AUTHOR AUTHOR'S ORGANIZ ATION 02/27/2023 [facility] DATE CREATED AUTHOR AUTHOR'S ORGANIZ ATION 03/18/2023 [facility] DATE CREATED AUTHOR AUTHOR'S ORGANIZ ATION 07/26/2023 [facility] Source Comments (unrecognize d section and content) In the event this informatio n is protected by the Federal Confidentiality of Alcohol and Drug Abuse Patient Records regulations: The Federal rules restrict any use of the information to criminally investigate or prosecute any alcohol or drug abuse patient.[facility] FOR RECORDS PERTAINING TO PATIENTS WHO [...] BE BASED ON THE PRIMARY CLINICAL RECORDS. [employer] provides no warranty or guarantee of the accuracy or completeness of information in this document.
[2023-08-02 08:50] LABS: Glucose Challenge Gest 1H 50g 265 mg/dL (70-140)
[2023-08-02 09:23] LABS: HIV - WCH Non-Reactive (Nonreactive); Syphilis Antibodies Non-reactive
== END | disposition home or self-care (01) ==
LOC: PAVLAB 08:09
PROVIDERS: Referring Provider Obstetrics & Gynecology; Visit Provider Obstetrics & Gynecology
DX: Z34.90 Encounter for supervision of normal pregnancy, unspecified, unspecified trimester (principal)
CPT/HCPCS: 36415; 82950; 85025; 86703; 86780

== ENCOUNTER → 2023-09-12 | Outpatient (CLI) | payer BC, SELFPAY ==
[2023-09-12 10:45] LABS: Absolute Lymphocyte Count 0.99 X10^3/uL (0.83-4.51); Absolute Neutrophil Count 8.3 X10^3/uL (2.0-7.7); Basophil# 0.02 X10^3/uL; Basophil% 0.2 % (0-1); Eosinophils% 0.9 % (0-5); Hematocrit 36.5 % (37-47); Hemoglobin 11.9 g/dL (12.0-15.0); Lymphocyte # 0.99 X10^3/ul (0.83-4.51); Lymphocyte % 9.4 % (19-41); Mean Corp Hgb Conc 32.6 g/dL (32-36); Mean Corpuscular Hgb 29.8 pg (27.0-32.0); Mean Corpuscular Volume 91.3 fL (81-99); Mean Platelet Vol. 9.7 fl (6.2-12.0); Monocyte# 1.09 X10^3/uL; Monocyte% 10.3 % (0-10); NRBC Flagged by Analyzer 0 % (0-5); Neutrophil # 8.31 X10^3/uL (2.7-7.7); Neutrophil % 78.8 % (47-70); Platelet Count 301 K/mm3 (150-450); RBC Distribution Width CV 12.4 % (11.6-14.6); RBC Distribution Width SD 41.1 fl (35.1-43.9); White Blood Count 10.6 K/mm3 (4.4-11.0)
--- OUTSIDE RECORDS SUMMARY | 2023-09-12 10:48 | XMS RPT_ITS | CCD ---
Author Name Unknown Address [address] [place] [address] Organization [facility] Care Team Providers Care Intermediate Teacher Name Role Phone Jennifer Park DO Primary Care Provider Stewart Romo Attending Unavailable Jennifer Park Referring Unavailable Jennifer Park Primary Care Unavailable Jennifer Park Unavailable Jennifer Park Referring Unavailable Jennifer Park Primary Care Unavailable JENNIFER PARK Primary Care Unavailable Lizzy King Unavailable Ms. Lizzy King Primary Care Unavailable Ms. Lizzy King Attending Unavailable Ms. Lizzy King Referring Unavailable [...] DEINE] Drug Allergy 6 Intolerance, GI Upset [facility] Other [facility] (1 source) Acetaminophen / Codeine; Translations: [Tylenol with Codeine #3] Drug Allergy [facility] Work Phone: (1 source) Morphine Derivatives; Translations: [Morphine Derivatives] Allergy to drug (finding) [facility] Work Phone: Medications Current Medications Medication [...] 13:53-0400 Body height 162.6 cm Zulma Serra APRN.LITHOGRAPHING MACHINE OPERATOR Work Phone: [facility] 03-17-2023 13:53-0400 Body temperature 97 [degF] Zulma Serra APRN.CONSTANTIN Work Phone: [facility] 03-17-2023 13:53-0400 Body weight 84.82 kg Zulma Serra APRN.CONSTANTIN Work Phone: [facility] 03-17-2023 13:53-0400 Diastolic blood pressure 67 mm[Hg] Zulma Serra APRN.CONSTANTIN Work Phone: [facility] 03-17-2023 13:53-0400 Heart rate 74 /min Zulma Serra CHECKERER HAND.LITHOGRAPHING MACHINE OPERATOR Work Phone: [facility] 03-17-2023 13:53-0400 Respiratory rate 16 /min Zulma Serra CHECKERER HAND.LITHOGRAPHING MACHINE OPERATOR Work Phone: [facility] 03-17-2023 13:53-0400 SaO2% (BldA) [Mass fraction] 97 % Zulma Serra CHECKERER HAND.LITHOGRAPHING MACHINE OPERATOR Work Phone: [facility] 03-17-2023 13:53-0400 Systolic blood pressure 109 mm[Hg] Zulma Serra CHECKERER HAND.LITHOGRAPHING MACHINE OPERATOR Work Phone: [facility] 02-26-2023 09:19-0400 Body height 162.56 cm [employer]zy [employer] Work Phone: [employer] [facility] Work Phone: 02-26-2023 09:19-0400 Body mass index (BMI) [Ratio] 31.98 kg/m2 [employer] Work Phone: [facility] Work Phone: 02-26-2023 09:19-0400 Body surface area Derived from formula 1.9 m2 [employer] [facility] Phone: [facility] Work Phone: 02-26-2023 09:19-0400 Body temperature 97.8 [degF] [employer] Work Phone: [facility] Work Phone: 02-26-2023 09:19-0400 Body weight 84.51 kg [employer]zy [employer] Work Phone: [facility] Work Phone: 02-26-2023 09:19-0400 Diastolic blood pressure 85 mm[Hg] [employer] Work Phone: [facility] Work Phone: 02-26-2023 09:19-0400 Heart rate 80 /min Lizzybrenda Calderónovic Work Phone: [facility] Work Phone: 02-26-2023 09:19-0400 Respiratory rate 18 /min Lizzybrenda King Work Phone: [facility] Work Phone: 02-26-2023 09:19-0400 SaO2% (BldA) [Mass fraction] 96 % Lizzy Christine Work Phone: [facility] Work Phone: 02-26-2023 09:19-0400 Systolic blood pressure 120 mm[Hg] Lizzybrenda King Work Phone: [facility] Work Phone: 04-10-2022 18:22-0400 Diastolic blood pressure 74 mm[Hg] Stewart Romo MD Work Phone: [facility] 04-10-2022 18:22-0400 Heart rate 66 /min Stewart Romo MD Work Phone: [facility] 04-10-2022 18:22-0400 Respiratory rate 16 /min Stewart Romo MD Work Phone: [facility] 04-10-2022 18:22-0400 SaO2% (BldA) [Mass fraction] 99 % Stewart Romo MD Work Phone: [facility] 04-10-2022 18:22-0400 Systolic blood pressure 128 mm[Hg] Stewart Romo MD Work Phone: [facility] 04-10-2022 17:26-0400 Body height 162.6 cm Stewart Romo MD Work Phone: [facility] 04-10-2022 17:26-0400 Body mass index (BMI) [Ratio] 31.76 kg/m2 Stewart Romo MD Work Phone: [facility] 04-10-2022 17:26-0400 Body temperature 98.29 [degF] Stewart Romo MD Work Phone: [facility] 04-10-2022 17:26-0400 Body weight 83.92 kg Stewart Romo MD Work Phone: [facility] 03-18-2021 12:09-0400 Body height 162.6 cm Ming Link MD Work Phone: [facility] Work Phone: 03-18-2021 12:09-0400 Body mass index (BMI) [Ratio] 32.61 kg/m2 Ming Link MD Work Phone: [facility] Work Phone: 03-18-2021 12:09-0400 Body temperature 98.2 [degF] Ming Link MD Work Phone: [facility] Work Phone: 03-18-2021 12:09-0400 Body weight [...] 99 % Ming Link MD Work Phone: [facility] Work Phone: 03-18-2021 12:09-0400 Systolic blood pressure 136 mm[Hg] Ming Link MD Work Phone: [facility] Work Phone: Encounters Encounter Date Encounter Type Care Provider Facility Start: 07-24-2023 End: 07-24-2023 ambulatory [facility] Start: 06-05-2023 End: 06-05-2023 ambulatory [facility] Start: 03-17-2023 End: 03-17-2023 ambulatory [facility] Facility:[facility] Start: 03-17-2023 End: 03-17-2023 Patient encounter procedure Zulma Galindosathish KISER.LITHOGRAPHING MACHINE OPERATOR Work Phone: [facility] Procedures [...] Lizzy King, Status: Pen, Time: 9:00 AM [facility] Work Phone: Start: 03-30-2023 Influenza vaccination INFLUENZA (#1) [facility] Start: 03-30-2022 Influenza vaccination Flu vaccine (# 1) [facility] Start: 10-06-2021 COVID-19 VACCINE (4 - Pfizer series) COVID-19 VACCINE (4 - Pfizer series) [facility] Start: 03-30-2021 Influenza vaccination Flu vaccine (# 1) [facility] Work Phone: Start: 08-28-2019 HPV TESTING HPV TESTING [facility] Start: 08-28-2019 PAP TESTING PAP TESTING [facility] Start: 2019 Diabetes screen Diabetes screen [facility] Start: 2014 Screening for malign ant neoplasm of cervix [facility] Start: 2005 Screening for malign ant neoplasm of cervix [facility] Start: 2003 Urine microalbumin profile DTAP,TDAP,TD (1 - Tdap) [facility] Start: 2002 Hepatitis C screening Hepatitis C sc reen [facility] Start: 1999 HIV screening HIV screen [facility] Start: 1996 Depression Monitoring Depression Mon itoring [facility] Start: 1985 Varicella vaccine (1 of 2 - 2-dose childhood series) Varicella vaccine (1 of 2 - 2-dose childhood series) [facility] Start: 1984 Hepatitis C screening Hepatitis C sc reen [facility] Work Phone: Immunizations Immunization Date Immunization Notes Care Provider Jeffry pisano 08-11-2021 Comirnaty 30 MCG/0.3 ML Intramuscular Suspension Lizzy Christine Work Phone: [facility] 03-01-2021 Pfizer-BioNTech COVI D-19 Vacc 30 MCG/0.3ML Intramuscular Suspension Lizzy Christine Work Phone: [facility] 01-27-2021 Pfizer-BioNTech COVI D-19 Vacc 30 MCG/0.3ML Intramuscular Suspension Lizzy Christine Work Phone: [facility] 11-15-2020 tetanus toxoid, redu jessica diphtheria toxoid, and acellular pertussis vaccine, adsorbed [facility]zy Christine [facility] Work Phone: 07-27-2020 influenza virus vacc ine, unspecified formulation Ming Link MD Work Phone: [facility] Work Phone: 07-27-2020 influenza, seasonal, injectable, preservative free Lizzy Christine [facility] Work Phone: 08-08-2019 Influenza, injectabl e, Madin Farrah Canine Kidney, preservative free, quadrivalent Ming Link MD Work Phone: [facility] Work Phone: 06-05-2018 influenza, injectabl e, quadrivalent, contains preservative Ming Link MD Work Phone: [facility] Work Phone: 05-25-2017 Influenza Vaccine, unspecified formulation Ming Link MD Work Phone: [facility] Work Phone: 05-19-2016 influenza, injectabl e, quadrivalent, contains preservative Ming Link MD Work Phone: [facility] 06-17-2008 influenza virus vacc ine, unspecified formulation Ming Link MD Work Phone: [facility] Work Phone: Payers Date Payer Category Payer Unknown [id number] 2016 Unknown 1984 Unknown [id number] [id number]. [id number] 1984 Unknown [id number] [id number]. [id number] 1984 Unknown [id number] [id number]. [id number] 1984 Unknown [id number] [id number]. [id number] 1984 Unknown [id number] [id number]. [id number] Social History Date Type Detail Facility Start: 05-15-2017 End: 03-18-2021 Tobacco smoking status [facility] Former smoker [facility] End: 2018 History of tobacco use Current smoker [facility] Start: 03-18-2021 End: 08-25-2022 Cigarettes smoked current (pack per day) - Reported [facility] Work Phone: Progress note 03-17-2023 Note Date & Type Note Facility 03-17-2023 Note HNO ID: [id number] Author: Zulma Serra APRN.LITHOGRAPHING MACHINE OPERATOR Service: ? Author Type: Nurse Practitioner Type: [...] 07/13/2006 Past Medical History: No date: Alcoholism ([facility]) 03/09/09: Encounter for insertion or [...] lower lid swe (more content not included)... [facility] History of Present illness Narrative 03-17-2023 Zulma Serra APRN.LITHOGRAPHING MACHINE OPERATOR - 03/17/2023 1:55 PM EDT Note Date [...] which included preparing to see the patient, [id number] patient care, completing clinical documentation, obtaining and/or reviewing separately obtained history, performing a medically appropriate examination, counseling and educating the patient/family/caregiver, and ordering medications, tests, or procedures. documented in this encounter [facility] Instructions 03-17-2023 Patient Instructions Note Date [...] with warning symptoms. documented in this encounter [facility] History of Present illness Narrative 02-25-2023 [...] had just continued to follow up w SECURITY AND COMPLIANCE ANALYST for anxiety/depression management. At this time is taking Desvenlafaxine but has reached out to TOOL TENDER who has just not sent in a new prescription for sertraline 50 mg daily and patient will stop the desvenlafaxine today. She does take buspirone 5 mg p.o. twice daily as needed for anxiety-buspirone is considered to be safe in (animal studies did not show adverse effects on fetus) still advised to avoid if possible and review with TOOL TENDER if she would like to continue. States only takes the medication as needed which is seldom. TOOL TENDER is Dr. Marivel Abreu.Reports that she also [...] rainingScreenings: Pap- up to date follows w SECURITY AND COMPLIANCE ANALYST Last in October 2022, unsure about HPV testing at that timeImmunizations: flu, Tdap, covid, -reviewed -[facility] Work Phone: Hospital Discharge instructions 04-10-2022 Discharge [...] cannot be sent through Care Everywhere.Elbow: Tennis (Belizean)documented in this encounter [facility] Work Phone: History of Past illness Narrative 07-13-2006 Note Date & Type Note Facility documented as of this encounter (statuses as of 03/17/2023) [facility] Evaluation note Note Date & Type Note Facility documented in this encounter [facility] Work Phone: Evaluation note Note Date & Type Note Facility documented in this encounter [facility] Work Phone: Evaluation note Note Date & Type Note Facility documented in this encounter [facility] Hospital Discharge instructions Attachments Note Date & Type Note Facility Hospital Discharge instructions The following attachments cannot be sent through Care Everywhere.Lacerations: Adhesives (Belizean)Abrasions (Belizean)documented in this encounter [facility] Work Phone: Advance Directives No Advanced Directives Records FoundDocuments on File Type Date Recorded Patient Plant Engineering Supervisor Expl anation ACP-Advance Directive ACP-Power of Dry Charge Process Attendant Latest Code Status on File Code Status [...] Care Teams (unrecognized sec tion and content) Intermediate Teacher Relationship Specialty Start Date End Date Jennifer Park [address] [place] [address] PCP - General Internal Medicine 05/15/17 INFORMATION SOURCE (unrecogn ized section and content) DATE CREATED AUTHOR AUTHOR'S ORGANIZ ATION 04/11/2022 [facility] DATE CREATED AUTHOR AUTHOR'S ORGANIZ ATION 11/22/2022 [facility] DATE CREATED AUTHOR AUTHOR'S ORGANIZ ATION 02/26/2023 [facility] DATE CREATED AUTHOR AUTHOR'S ORGANIZ ATION 02/27/2023 [employer] DATE CREATED AUTHOR AUTHOR'S ORGANIZ ATION 03/18/2023 [facility] DATE CREATED AUTHOR AUTHOR'S ORGANIZ ATION 07/26/2023 [facility] Source Comments (unrecognize d section and content) In the event this informatio n is protected by the Federal Confidentiality of Alcohol and Drug Abuse Patient Records regulations: The Federal rules restrict any use of the information to criminally investigate or prosecute any alcohol or drug abuse patient.[facility] FOR RECORDS PERTAINING TO PATIENTS WHO [...] BE BASED ON THE PRIMARY CLINICAL RECORDS. [employer] provides no warranty or guarantee of the accuracy or completeness of information in this document.
[2023-09-12 10:52] LABS: ALB/GLOB Ratio 0.6 RATIO (0.9-2.4); AST(SGOT) 22 U/L (15-37); Alanine Aminotransfer ALT/SGPT 28 U/L (13-56); Albumin, Serum 2.5 g/dL (3.2-5.0); Alkaline Phosphatase 150 U/L (45-117); Anion Gap 8 (5-15); BUN 6 mg/dL (7-18); BUN/Creat Ratio 9.6 RATIO (10-20); Calcium,Total 8.7 mg/dL (8.5-10.1); Chloride 105 mmol/L (98-107); Creatinine, Serum 0.63 mg/dL (0.55-1.02); EST Glomerular Filtration Rate 112 mL/min (>60); Est Glom Filt Rate - Afr Amer 136 mL/min (>60); Globulin 4.5 g/dL (2.2-4.2); Glucose 84 mg/dL (74-106); Potassium 4.2 mmol/L (3.5-5.1); Sodium Level 138 mmol/L (136-145)
[2023-09-12 11:04] LABS: Protein:Creat Ratio 396 mg/g CRE (0-200)
== END | disposition home or self-care (01) ==
PROVIDERS: Referring Provider Nurse Practitioner Women's Health; Visit Provider Nurse Practitioner Women's Health
DX: O12.10 Gestational proteinuria, unspecified trimester (principal); O26.899 Other specified pregnancy related conditions, unspecified trimester; R10.2 Pelvic and perineal pain; Z3A.00 Weeks of gestation of pregnancy not specified
CPT/HCPCS: 36415; 80053; 82570; 84156; 85025; 87086; 87088

== ENCOUNTER → 2023-09-19 | Outpatient (CLI) | payer BC, SELFPAY ==
[2023-09-19 10:49] LABS: Absolute Lymphocyte Count 1.16 X10^3/uL (0.83-4.51); Basophil# 0.02 X10^3/uL; Basophil% 0.2 % (0-1); Eosinophils% 1.2 % (0-5); Hematocrit 34.7 % (37-47); Hemoglobin 11.4 g/dL (12.0-15.0); Lymphocyte # 1.16 X10^3/ul (0.83-4.51); Lymphocyte % 14.3 % (19-41); Mean Corp Hgb Conc 32.9 g/dL (32-36); Mean Corpuscular Volume 91.3 fL (81-99); Mean Platelet Vol. 9.8 fl (6.2-12.0); Monocyte# 0.84 X10^3/uL; Monocyte% 10.3 % (0-10); NRBC Flagged by Analyzer 0 % (0-5); Neutrophil # 5.98 X10^3/uL (2.7-7.7); Neutrophil % 73.5 % (47-70); Platelet Count 257 K/mm3 (150-450); RBC Distribution Width CV 12.3 % (11.6-14.6); RBC Distribution Width SD 40.9 fl (35.1-43.9); White Blood Count 8.1 K/mm3 (4.4-11.0)
--- OUTSIDE RECORDS SUMMARY | 2023-09-19 10:51 | XMS RPT_ITS | CCD ---
Author Name Unknown Address [address] [place] [address] Organization [facility] Care Team Providers Care Fashion Supervisor Name Role Phone Jennifer Park DO Primary Care Provider [phone] Stewart Romo Attending Unavailable Jennifer Park Referring [...] DEINE] Drug Allergy 6 Intolerance, GI Upset [facility] Other [facility] (1 source) Acetaminophen / Codeine; Translations: [Tylenol with Codeine #3] Drug Allergy [facility] Work Phone: (1 source) Morphine Derivatives; Translations: [Morphine Derivatives] Allergy to drug (finding) [facility] Work Phone: Medications Current Medications Medication Drug [...] 13:53-0400 Body height 162.6 cm Zulma Serra APRN.SLIP COVER ESTIMATOR Work Phone: [facility] 03-17-2023 13:53-0400 Body temperature 97 [degF] Zulma Serra APRN.CONSTANTIN Work Phone: [facility] 03-17-2023 13:53-0400 Body weight 84.82 kg Zulma Serra APRN.CONSTANTIN Work Phone: [facility] 03-17-2023 13:53-0400 Diastolic blood pressure 67 mm[Hg] Zulma Serra APRN.CONSTANTIN Work Phone: [facility] 03-17-2023 13:53-0400 Heart rate 74 /min Zulma Serra SCULLION CHIEF.SLIP COVER ESTIMATOR Work Phone: [facility] 03-17-2023 13:53-0400 Respiratory rate 16 /min Zulma Serra SCULLION CHIEF.SLIP COVER ESTIMATOR Work Phone: [facility] 03-17-2023 13:53-0400 SaO2% (BldA) [Mass fraction] 97 % Zulma Serra SCULLION CHIEF.SLIP COVER ESTIMATOR Work Phone: [facility] 03-17-2023 13:53-0400 Systolic blood pressure 109 mm[Hg] Zulma Serra SCULLION CHIEF.SLIP COVER ESTIMATOR Work Phone: [facility] 02-26-2023 09:19-0400 Body height 162.56 cm Lizzy Towergate Work Phone: [employer] [facility] Work Phone: 02-26-2023 09:19-0400 Body mass index (BMI) [Ratio] 31.98 kg/m2 Anda Work Phone: [employer] [facility] Work Phone: 02-26-2023 09:19-0400 Body surface area Derived from formula 1.9 m2 Anda [facility]: [facility] Work Phone: 02-26-2023 09:19-0400 Body temperature 97.8 [degF] Lizzy Towergate Work Phone: [facility] Work Phone: 02-26-2023 09:19-0400 Body weight 84.51 kg Lizzy Towergate Work Phone: [facility] Work Phone: 02-26-2023 09:19-0400 Diastolic blood pressure 85 mm[Hg] LizzyACSIAN Work Phone: [facility] Work Phone: 02-26-2023 09:19-0400 Heart rate 80 /min Lizzybrenda Calderónovic Work Phone: [facility] Work Phone: 02-26-2023 09:19-0400 Respiratory rate 18 /min Lizzybrenda King Work Phone: [facility] Work Phone: 02-26-2023 09:19-0400 SaO2% (BldA) [Mass fraction] 96 % Lizzy Christine Work Phone: [facility] Work Phone: 02-26-2023 09:19-0400 Systolic blood pressure 120 mm[Hg] Lizzybrenda King Work Phone: [facility] Work Phone: 04-10-2022 18:22-0400 Diastolic blood pressure 74 mm[Hg] Stewart Romo MD Work Phone: [facility] 04-10-2022 18:22-0400 Heart rate 66 /min Stewart Romo MD Work Phone: [facility] 04-10-2022 18:22-0400 Respiratory rate 16 /min Stewart Romo MD Work Phone: [facility] 04-10-2022 18:22-0400 SaO2% (BldA) [Mass fraction] 99 % Stewart Romo MD Work Phone: [facility] 04-10-2022 18:22-0400 Systolic blood pressure 128 mm[Hg] Stewart Romo MD Work Phone: [facility] 04-10-2022 17:26-0400 Body height 162.6 cm Stewart Romo MD Work Phone: [facility] 04-10-2022 17:26-0400 Body mass index (BMI) [Ratio] 31.76 kg/m2 Stewart Romo MD Work Phone: [facility] 04-10-2022 17:26-0400 Body temperature 98.29 [degF] Stewart Romo MD Work Phone: [facility] 04-10-2022 17:26-0400 Body weight 83.92 kg Stewart Romo MD Work Phone: [facility] 03-18-2021 12:09-0400 Body height 162.6 cm Ming Link MD Work Phone: [facility] Work Phone: 03-18-2021 12:09-0400 Body mass index (BMI) [Ratio] 32.61 kg/m2 Ming Link MD Work Phone: [facility] Work Phone: 03-18-2021 12:09-0400 Body temperature 98.2 [degF] Ming Link MD Work Phone: [facility] Work Phone: 03-18-2021 12:09-0400 Body weight 86.18 [...] 99 % Ming Link MD Work Phone: [facility] Work Phone: 03-18-2021 12:09-0400 Systolic blood pressure 136 mm[Hg] Ming Link MD Work Phone: [facility] Work Phone: Encounters Encounter Date Encounter Type Care Provider Facility Start: 07-24-2023 End: 07-24-2023 ambulatory [facility] Start: 06-05-2023 End: 06-05-2023 ambulatory [facility] Start: 03-17-2023 End: 03-17-2023 ambulatory [facility] Facility:[facility] Start: 03-17-2023 End: 03-17-2023 Patient encounter procedure Zulma Galindosathish KISER.SLIP COVER ESTIMATOR Work Phone: [facility] Procedures [...] Lizzy King, Status: Pen, Time: 9:00 AM [facility] Work Phone: Start: 03-30-2023 Influenza vaccination INFLUENZA (#1) [facility] Start: 03-30-2022 Influenza vaccination Flu vaccine (# 1) [facility] Start: 10-06-2021 COVID-19 VACCINE (4 - Pfizer series) COVID-19 VACCINE (4 - Pfizer series) [facility] Start: 03-30-2021 Influenza vaccination Flu vaccine (# 1) [facility] Work Phone: Start: 08-28-2019 HPV TESTING HPV TESTING [facility] Start: 08-28-2019 PAP TESTING PAP TESTING [facility] Start: 2019 Diabetes screen Diabetes screen [facility] Start: 2014 Screening for malign ant neoplasm of cervix [facility] Start: 2005 Screening for malign ant neoplasm of cervix [facility] Start: 2003 Urine microalbumin profile DTAP,TDAP,TD (1 - Tdap) [facility] Start: 2002 Hepatitis C screening Hepatitis C sc reen [facility] Start: 1999 HIV screening HIV screen [facility] Start: 1996 Depression Monitoring Depression Mon itoring [facility] Start: 1985 Varicella vaccine (1 of 2 - 2-dose childhood series) Varicella vaccine (1 of 2 - 2-dose childhood series) [facility] Start: 1984 Hepatitis C screening Hepatitis C sc reen [facility] Work Phone: Immunizations Immunization Date Immunization Notes Care Provider Jeffry pisano 08-11-2021 Comirnaty 30 MCG/0.3 ML Intramuscular Suspension Lizzy Christine Work Phone: [facility] 03-01-2021 Pfizer-BioNTech COVI D-19 Vacc 30 MCG/0.3ML Intramuscular Suspension Lizzy Christine Work Phone: [facility] 01-27-2021 Pfizer-BioNTech COVI D-19 Vacc 30 MCG/0.3ML Intramuscular Suspension Lizzy Christine Work Phone: [facility] 11-15-2020 tetanus toxoid, redu jessica diphtheria toxoid, and acellular pertussis vaccine, adsorbed Lizzy Christine Work Phone[facility] Work Phone: 07-27-2020 influenza virus vacc ine, unspecified formulation Ming Link MD Work Phone: [facility] Work Phone: 07-27-2020 influenza, seasonal, injectable, preservative free Lizzy Christine Work Phone: [facility] Work Phone: 08-08-2019 Influenza, injectabl e, Madin Farrah Canine Kidney, preservative free, quadrivalent Ming Link MD Work Phone: [facility] Work Phone: 06-05-2018 influenza, injectabl e, quadrivalent, contains preservative Ming Link MD Work Phone: [facility] Work Phone: 05-25-2017 Influenza Vaccine, unspecified formulation Ming Link MD Work Phone: [facility] Work Phone: 05-19-2016 influenza, injectabl e, quadrivalent, contains preservative Ming Link MD Work Phone: [facility] 06-17-2008 influenza virus vacc ine, unspecified formulation Ming Link MD Work Phone: [facility] Work Phone: Payers Date Payer Category Payer Unknown [id number] 2016 Unknown 1984 Unknown [id number] [id number] 1984 Unknown [id number] [id number]. [id number] 1984 Unknown [id number] [id number]. [id number] 1984 Unknown [id number] [id number]. [id number] 1984 Unknown [id number] [id number]. [id number] Social History Date Type Detail Facility Start: 05-15-2017 End: 03-18-2021 Tobacco smoking status [facility] Former smoker [facility] End: 2018 History of tobacco use Current smoker [facility] Start: 03-18-2021 End: 08-25-2022 Cigarettes smoked current (pack per day) - Reported [facility] Work Phone: Progress note 03-17-2023 Note Date & Type Note Facility 03-17-2023 Note HNO ID: [id number] Author: Zulma Serra APRN.SLIP COVER ESTIMATOR Service: ? Author Type: Nurse Practitioner Type: [...] 07/13/2006 Past Medical History: No date: Alcoholism ([facility]) 03/09/09: Encounter for insertion or removal of [...] lower lid swe (more content not included)... [facility] History of Present illness Narrative 03-17-2023 Zulma Serra APRN.SLIP COVER ESTIMATOR - 03/17/2023 1:55 PM EDT Note Date [...] which included preparing to see the patient, [id number] patient care, completing clinical documentation, obtaining and/or reviewing separately obtained history, performing a medically appropriate examination, counseling and educating the patient/family/caregiver, and ordering medications, tests, or procedures. documented in this encounter [facility] Instructions 03-17-2023 Patient Instructions Note Date [...] with warning symptoms. documented in this encounter [facility] History of Present illness Narrative 02-25-2023 [...] had just continued to follow up w TEAM CDL DRIVER for anxiety/depression management. At this time is taking Desvenlafaxine but has reached out to MANAGER BILLING who has just not sent in a new prescription for sertraline 50 mg daily and patient will stop the desvenlafaxine today. She does take buspirone 5 mg p.o. twice daily as needed for anxiety-buspirone is considered to be safe in (animal studies did not show adverse effects on fetus) still advised to avoid if possible and review with MANAGER BILLING if she would like to continue. States only takes the medication as needed which is seldom. MANAGER BILLING is Dr. Marivel Abreu.Reports that she also [...] rainingScreenings: Pap- up to date follows w TEAM CDL DRIVER Last in October 2022, unsure about HPV testing at that timeImmunizations: flu, Tdap, covid, -reviewed -[facility] Work Phone: Hospital Discharge instructions 04-10-2022 [...] cannot be sent through Care Everywhere.Elbow: Tennis ([place]izen [place])documented in this encounter [facility] Work Phone: History of Past illness Narrative 07-13-2006 Note Date & Type Note Facility documented as of this encounter (statuses as of 03/17/2023) [facility] Evaluation note Note Date & Type Note Facility documented in this encounter [facility] Work Phone: Evaluation note Note Date & Type Note Facility documented in this encounter [facility] Work Phone: Evaluation note Note Date & Type Note Facility documented in this encounter [facility] Hospital Discharge instructions Attachments Note Date & Type Note Facility Hospital Discharge instructions The following attachments cannot be sent through Care Everywhere.Lacerations: Adhesives (Citizen Of [place])Abrasions (Citizen [place])documented in this encounter [facility] Work Phone: Advance Directives No Advanced Directives Records FoundDocuments on File Type Date Recorded Patient Commission Sales Associate Expl anation ACP-Advance Directive ACP-Power of Occupational Therapist Assistant Latest Code Status on File Code Status [...] Care Teams (unrecognized sec tion and content) Fashion Supervisor Relationship Specialty Start Date End Date Jennifer Park [address] [place] [address] PCP - General Internal Medicine 05/15/17 INFORMATION SOURCE (unrecogn ized section and content) DATE CREATED AUTHOR AUTHOR'S ORGANIZ ATION 04/11/2022 [facility] DATE CREATED AUTHOR AUTHOR'S ORGANIZ ATION 11/22/2022 [facility] DATE CREATED AUTHOR AUTHOR'S ORGANIZ ATION 02/26/2023 [facility] DATE CREATED AUTHOR AUTHOR'S ORGANIZ ATION 02/27/2023 [facility] DATE CREATED AUTHOR AUTHOR'S ORGANIZ ATION 03/18/2023 [facility] DATE CREATED AUTHOR AUTHOR'S ORGANIZ ATION 07/26/2023 [facility] Source Comments (unrecognize d section and content) In the event this informatio n is protected by the Federal Confidentiality of Alcohol and Drug Abuse Patient Records regulations: The Federal rules restrict any use of the information to criminally investigate or prosecute any alcohol or drug abuse patient.[facility] FOR RECORDS PERTAINING TO PATIENTS WHO [...] BE BASED ON THE PRIMARY CLINICAL RECORDS. [employer] provides no warranty or guarantee of the accuracy or completeness of information in this document.
[2023-09-19 11:15] LABS: ALB/GLOB Ratio 0.5 RATIO (0.9-2.4); AST(SGOT) 20 U/L (15-37); Alanine Aminotransfer ALT/SGPT 28 U/L (13-56); Albumin, Serum 2.3 g/dL (3.2-5.0); Alkaline Phosphatase 160 U/L (45-117); Anion Gap 6 (5-15); BUN 8 mg/dL (7-18); BUN/Creat Ratio 11.6 RATIO (10-20); Chloride 108 mmol/L (98-107); Creatinine, Serum 0.69 mg/dL (0.55-1.02); EST Glomerular Filtration Rate 101 mL/min (>60); Est Glom Filt Rate - Afr Amer 122 mL/min (>60); Globulin 4.4 g/dL (2.2-4.2); Glucose 134 mg/dL (74-106); Potassium 3.9 mmol/L (3.5-5.1); Protein, Total 6.7 g/dL (6.4-8.2); Sodium Level 137 mmol/L (136-145)
== END | disposition home or self-care (01) ==
PROVIDERS: Referring Provider Nurse Practitioner Women's Health; Visit Provider Nurse Practitioner Women's Health
DX: O12.10 Gestational proteinuria, unspecified trimester (principal); Z3A.00 Weeks of gestation of pregnancy not specified
CPT/HCPCS: 36415; 80053; 85025

== ENCOUNTER → 2023-09-21 | Outpatient (CLI) | payer BC, SELFPAY ==
[2023-09-21 14:07] LABS: Protein, Urine (Random) 23.2 mg/dL (<11.9); Protein:Creat Ratio 387 mg/g CRE (0-200)
== END | disposition home or self-care (01) ==
LOC: LABSPEC 12:37
PROVIDERS: Nurse Practitioner Women's Health; Visit Provider Obstetrics & Gynecology
DX: O12.10 Gestational proteinuria, unspecified trimester (principal); Z3A.00 Weeks of gestation of pregnancy not specified
CPT/HCPCS: 82570; 84156

== ENCOUNTER → 2023-09-24 | Outpatient (CLI) | payer BC, SELFPAY ==
--- NOTE | 2023-09-24 11:15 | US_ITS ---
STUDY: SECOND AND THIRD TRIMESTER OBSTETRICAL ULTRASOUND REASON FOR EXAM: Female, 38 years old marginal insertion of umbilical cord LMP: January 28, 2023. TECHNIQUE: Transabdominal TECHNICAL QUALITY: Adequate. PRIOR ULTRASOUND: None. FINDINGS: There is a single intrauterine fetus. The fetus is in a cephalic presentation. There is demonstrated cardiac activity with a heart rate of 121 bpm. There is a normal amniotic fluid volume. The largest amniotic fluid pocket measures 5 cm. The amniotic fluid index (SHIMON) is 14.4 cm. The placenta is posterior in location and is not low lying. There are Grade 1 placental changes. The cervix was not measured due to the head positioning. BIOMETRY: BPD: 8.8 cm: 35 weeks, 5 days HC: 32.5 cm: 36 weeks, 6 days AC: 32.1 cm: 36 weeks, 0 days FL: 6.7 cm: 34 weeks, 2 days CI: 77% FL/BPD: 75.3% FL/HC: FL/AC: 20.7% HC/AC: 1.0 age by current US: 35 weeks, 6 days. QI by current US: October 23, 2023.. Estimated weight: 2726 grams, +/- 409 grams, 84 %. Age by LMP: 34 weeks, 1 days. QI by LMP: November 04, 2023. US/OB Limited With Biometrics IMPRESSION: Single live intrauterine gestation with a mean gestational age of 35 weeks and 6 days. Electronically Signed: Jay Guido MD at 12:36 EST ,
--- OUTSIDE RECORDS SUMMARY | 2023-09-24 18:42 | XMS RPT_ITS | CCD ---
Author Name Unknown Address [address] [place] [address] Organization [facility] Care Team Providers Care Communication Skills Instructor Name Role Phone Jennifer Park DO Primary Care Provider [phone] Stewart Romo Attending Unavailable Jennifer Park Referring [...] DEINE] Drug Allergy 6 Intolerance, GI Upset [facility] Other [place] [facility] (1 source) Acetaminophen / Codeine; Translations: [Tylenol with Codeine #3] Drug Allergy [facility] Work Phone: (1 source) Morphine Derivatives; Translations: [Morphine Derivatives] Allergy to drug (finding) [facility] Work Phone: Medications Current Medications Medication [...] 13:53-0400 Body height 162.6 cm Zulma Serra APRN.SALES DEVELOPMENT REPRESENTATIVE Work Phone: [facility] 03-17-2023 13:53-0400 Body temperature 97 [degF] Zulma Serra APRN.CONSTANTIN Work Phone: [facility] 03-17-2023 13:53-0400 Body weight 84.82 kg Zulma Serra APRN.CONSTANTIN Work Phone: [facility] 03-17-2023 13:53-0400 Diastolic blood pressure 67 mm[Hg] Zulma Serra APRN.CONSTANTIN Work Phone: [facility] 03-17-2023 13:53-0400 Heart rate 74 /min Zulma Serra FRUIT PEELER.SALES DEVELOPMENT REPRESENTATIVE Work Phone: [facility] 03-17-2023 13:53-0400 Respiratory rate 16 /min Zulma Serra FRUIT PEELER.SALES DEVELOPMENT REPRESENTATIVE Work Phone: [facility] 03-17-2023 13:53-0400 SaO2% (BldA) [Mass fraction] 97 % Zulma Serra FRUIT PEELER.SALES DEVELOPMENT REPRESENTATIVE Work Phone: [facility] 03-17-2023 13:53-0400 Systolic blood pressure 109 mm[Hg] Zulma Serra FRUIT PEELER.SALES DEVELOPMENT REPRESENTATIVE Work Phone: [facility] 02-26-2023 09:19-0400 Body height 162.56 cm Lizzy [employer] Work Phone: [employer] [facility] [facility] Work Phone: 02-26-2023 09:19-0400 Body mass index (BMI) [Ratio] 31.98 kg/m2 [employer] Work Phone: [facility] Work Phone: 02-26-2023 09:19-0400 Body surface area Derived from formula 1.9 m2 [employer] [facility] Phone[facility] Work Phone: 02-26-2023 09:19-0400 Body temperature 97.8 [degF] Lizzy [employer] Work Phone[facility] Work Phone: 02-26-2023 09:19-0400 Body weight 84.51 kg Lizzy [employer] Work Phone: [facility] Work Phone: 02-26-2023 09:19-0400 Diastolic blood pressure 85 mm[Hg] [employer] Work Phone: [facility] Work Phone: 02-26-2023 09:19-0400 Heart rate 80 /min Lizzybrenda Calderónovic Work Phone: [facility] Work Phone: 02-26-2023 09:19-0400 Respiratory rate 18 /min Lizzybrenda King Work Phone: [facility] Work Phone: 02-26-2023 09:19-0400 SaO2% (BldA) [Mass fraction] 96 % Lizzy Christine Work Phone: [facility] Work Phone: 02-26-2023 09:19-0400 Systolic blood pressure 120 mm[Hg] Lizzybrenda King Work Phone: [facility] Work Phone: 04-10-2022 18:22-0400 Diastolic blood pressure 74 mm[Hg] Stewart Romo MD Work Phone: [facility] 04-10-2022 18:22-0400 Heart rate 66 /min Stewart Romo MD Work Phone: [facility] 04-10-2022 18:22-0400 Respiratory rate 16 /min Stewart Romo MD Work Phone: [facility] 04-10-2022 18:22-0400 SaO2% (BldA) [Mass fraction] 99 % Stewart Romo MD Work Phone: [facility] 04-10-2022 18:22-0400 Systolic blood pressure 128 mm[Hg] Stewart Romo MD Work Phone: [facility] 04-10-2022 17:26-0400 Body height 162.6 cm Stewart Romo MD Work Phone: [facility] 04-10-2022 17:26-0400 Body mass index (BMI) [Ratio] 31.76 kg/m2 Stewart Romo MD Work Phone: [facility] 04-10-2022 17:26-0400 Body temperature 98.29 [degF] Stewart Romo MD Work Phone: [facility] 04-10-2022 17:26-0400 Body weight 83.92 kg Stewart Romo MD Work Phone: [facility] 03-18-2021 12:09-0400 Body height 162.6 cm Ming Link MD Work Phone: [facility] Work Phone: 03-18-2021 12:09-0400 Body mass index (BMI) [Ratio] 32.61 kg/m2 Ming Link MD Work Phone: [facility] Work Phone: 03-18-2021 12:09-0400 Body temperature 98.2 [degF] Ming Link MD Work Phone: [facility] Work Phone: 03-18-2021 12:09-0400 Body weight [...] 99 % Ming Link MD Work Phone: [facility] Work Phone: 03-18-2021 12:09-0400 Systolic blood pressure 136 mm[Hg] Ming Link MD Work Phone: [facility] Work Phone: Encounters Encounter Date Encounter Type Care Provider Facility Start: 07-24-2023 End: 07-24-2023 ambulatory [facility] Start: 06-05-2023 End: 06-05-2023 ambulatory [facility] Start: 03-17-2023 End: 03-17-2023 ambulatory [facility] Facility:[facility] Start: 03-17-2023 End: 03-17-2023 Patient encounter procedure Zulma Galindosathish KISER.SALES DEVELOPMENT REPRESENTATIVE Work Phone: [facility] Procedures Date Procedure Procedure Detail Performing Clinician Start: 04-10-2022 Radex elbow complete minimum 3 views Stewart Romo MD Work Phone: Operation on mouth Lzizy Pet rovic Work Phone: Plan of Treatment [...] Lizzy King, Status: Pen, Time: 9:00 AM [facility] Work Phone: Start: 03-30-2023 Influenza vaccination INFLUENZA (#1) [facility] Start: 03-30-2022 Influenza vaccination Flu vaccine (# 1) [facility] Start: 10-06-2021 COVID-19 VACCINE (4 - Pfizer series) COVID-19 VACCINE (4 - Pfizer series) [facility] Start: 03-30-2021 Influenza vaccination Flu vaccine (# 1) [facility] Work Phone: Start: 08-28-2019 HPV TESTING HPV TESTING [facility] Start: 08-28-2019 PAP TESTING PAP TESTING [facility] Start: 2019 Diabetes screen Diabetes screen [facility] Start: 2014 Screening for malign ant neoplasm of cervix [facility] Start: 2005 Screening for malign ant neoplasm of cervix [facility] Start: 2003 Urine microalbumin profile DTAP,TDAP,TD (1 - Tdap) [facility] Start: 2002 Hepatitis C screening Hepatitis C sc reen [facility] Start: 1999 HIV screening HIV screen [facility] Start: 1996 Depression Monitoring Depression Mon itoring [facility] Start: 1985 Varicella vaccine (1 of 2 - 2-dose childhood series) Varicella vaccine (1 of 2 - 2-dose childhood series) [facility] Start: 1984 Hepatitis C screening Hepatitis C sc reen [facility] Work Phone: Immunizations Immunization Date Immunization Notes Care Provider Jeffry pisano 08-11-2021 Comirnaty 30 MCG/0.3 ML Intramuscular Suspension Lizzy Christine Work Phone: [facility] 03-01-2021 Pfizer-BioNTech COVI D-19 Vacc 30 MCG/0.3ML Intramuscular Suspension Lizzy Christine Work Phone: [facility] 01-27-2021 Pfizer-BioNTech COVI D-19 Vacc 30 MCG/0.3ML Intramuscular Suspension Lizzy Christine Work Phone: [facility] 11-15-2020 tetanus toxoid, redu jessica diphtheria toxoid, and acellular pertussis vaccine, adsorbed [facility]zy Christine [facility] Work Phone: 07-27-2020 influenza virus vacc ine, unspecified formulation Ming Link MD Work Phone: [facility] Work Phone: 07-27-2020 influenza, seasonal, injectable, preservative free Lizzy Christine [facility] Work Phone: 08-08-2019 Influenza, injectabl e, Madin Farrha Canine Kidney, preservative free, quadrivalent Ming Link MD Work Phone: [facility] Work Phone: 06-05-2018 influenza, injectabl e, quadrivalent, contains preservative Ming Link MD Work Phone: [facility] Work Phone: 05-25-2017 Influenza Vaccine, unspecified formulation Ming Link MD Work Phone: [facility] Work Phone: 05-19-2016 influenza, injectabl e, quadrivalent, contains preservative Ming Link MD Work Phone: [facility] 06-17-2008 influenza virus vacc ine, unspecified formulation Ming Link MD Work Phone: [facility] Work Phone: Payers Date Payer Category Payer Unknown [id number] 2016 Unknown 1984 Unknown [id number] 1984 Unknown [id number] [id number]. [id number] 1984 Unknown [id number] [id number]. [id number] 1984 Unknown [id number] [id number]. [id number] 1984 Unknown [id number]. [id number] Social History Date Type Detail Facility Start: 05-15-2017 End: 03-18-2021 Tobacco smoking status [facility] Former smoker [facility] End: 2018 History of tobacco use Current smoker [facility] Start: 03-18-2021 End: 08-25-2022 Cigarettes smoked current (pack per day) - Reported [facility] Work Phone: Progress note 03-17-2023 Note Date & Type Note Facility 03-17-2023 Note HNO ID: [id number] Author: Zulma Serra APRN.SALES DEVELOPMENT REPRESENTATIVE Service: ? Author Type: Nurse Practitioner Type: [...] 07/13/2006 Past Medical History: No date: Alcoholism ([facility]) 03/09/09: Encounter for insertion or [...] lower lid swe (more content not included)... [facility] History of Present illness Narrative 03-17-2023 Zulma Serra APRN.SALES DEVELOPMENT REPRESENTATIVE - 03/17/2023 1:55 PM EDT Note Date [...] which included preparing to see the patient, [id number] patient care, completing clinical documentation, obtaining and/or reviewing separately obtained history, performing a medically appropriate examination, counseling and educating the patient/family/caregiver, and ordering medications, tests, or procedures. documented in this encounter [facility] Instructions 03-17-2023 Patient Instructions Note Date [...] with warning symptoms. documented in this encounter [facility] History of Present illness Narrative 02-25-2023 [...] had just continued to follow up w PIPE FITTER for anxiety/depression management. At this time is taking Desvenlafaxine but has reached out to [facility]IONS MANAGER who has just not sent in a new prescription for sertraline 50 mg daily and patient will stop the desvenlafaxine today. She does take buspirone 5 mg p.o. twice daily as needed for anxiety-buspirone is considered to be safe in (animal studies did not show adverse effects on fetus) still advised to avoid if possible and review with SOLUTIONS MANAGER if she would like to continue. States only takes the medication as needed which is seldom. SOLUTIONS MANAGER is Dr. Marivel Abreu.Reports that she also [...] rainingScreenings: Pap- up to date follows w P[facility] Last in October 2022, unsure about HPV [...] cannot be sent through Care Everywhere.Elbow: Tennis (Guyanese)documented in this encounter [facility] Work Phone: History of Past illness Narrative 07-13-2006 Note Date & Type Note Facility documented as of this encounter (statuses as of 03/17/2023) [facility] Evaluation note Note Date & Type Note Facility documented in this encounter [facility] Work Phone: Evaluation note Note Date & Type Note Facility documented in this encounter [facility] Work Phone: Evaluation note Note Date & Type Note Facility documented in this encounter [facility] Hospital Discharge instructions Attachments Note Date & Type Note Facility Hospital Discharge instructions The following attachments cannot be sent through Care Everywhere.Lacerations: Adhesives (Guyanese)Abrasions (Guyanese)documented in this encounter [facility] Work Phone: Advance Directives No Advanced Directives Records FoundDocuments on File Type Date Recorded Patient Ash Conveyor Operator Expl anation ACP-Advance Directive ACP-Power of Front End Java Developer Latest Code Status on File Code Status [...] Care Teams (unrecognized sec tion and content) Communication Skills Instructor Relationship Specialty Start Date End Date Jennifer Park [address] [place] [address] PCP - General Internal Medicine 05/15/17 INFORMATION SOURCE (unrecogn ized section and content) DATE CREATED AUTHOR AUTHOR'S ORGANIZ ATION 04/11/2022 [facility] DATE CREATED AUTHOR AUTHOR'S ORGANIZ ATION 11/22/2022 [facility] DATE CREATED AUTHOR AUTHOR'S ORGANIZ ATION 02/26/2023 [facility] DATE CREATED AUTHOR AUTHOR'S ORGANIZ ATION 02/27/2023 [employer] DATE CREATED AUTHOR AUTHOR'S ORGANIZ ATION 03/18/2023 [facility] DATE CREATED AUTHOR AUTHOR'S ORGANIZ ATION 07/26/2023 [facility] Source Comments (unrecognize d section and content) In the event this informatio n is protected by the Federal Confidentiality of Alcohol and Drug Abuse Patient Records regulations: The Federal rules restrict any use of the information to criminally investigate or prosecute any alcohol or drug abuse patient.[facility] FOR RECORDS PERTAINING TO PATIENTS WHO [...] BE BASED ON THE PRIMARY CLINICAL RECORDS. [employer] provides no warranty or guarantee of the accuracy or completeness of information in this document.
== END | disposition home or self-care (01) ==
PROVIDERS: Referring Provider Obstetrics & Gynecology; Visit Provider Obstetrics & Gynecology
DX: O43.199 Other malformation of placenta, unspecified trimester (principal); Z3A.00 Weeks of gestation of pregnancy not specified
CPT/HCPCS: 76816

== ENCOUNTER → 2023-10-03 | Outpatient (CLI) | payer BC, SELFPAY ==
[2023-10-03 10:00] LABS: Absolute Lymphocyte Count 1.27 X10^3/uL (0.83-4.51); Absolute Neutrophil Count 5.6 X10^3/uL (2.0-7.7); Basophil# 0.03 X10^3/uL; Basophil% 0.4 % (0-1); Eosinophil# 0.09 X10^3/uL; Eosinophils% 1.2 % (0-5); Hematocrit 33.8 % (37-47); Lymphocyte # 1.27 X10^3/ul (0.83-4.51); Lymphocyte % 16.3 % (19-41); Mean Corp Hgb Conc 32.5 g/dL (32-36); Mean Corpuscular Hgb 29.1 pg (27.0-32.0); Mean Corpuscular Volume 89.4 fL (81-99); Mean Platelet Vol. 10.3 fl (6.2-12.0); Monocyte% 10.3 % (0-10); NRBC Flagged by Analyzer 0 % (0-5); Neutrophil # 5.56 X10^3/uL (2.7-7.7); Neutrophil % 71.3 % (47-70); Platelet Count 249 K/mm3 (150-450); RBC Distribution Width CV 12.4 % (11.6-14.6); RBC Distribution Width SD 40.6 fl (35.1-43.9); Red Blood Count 3.78 M/mm3 (4.2-5.4); White Blood Count 7.8 K/mm3 (4.4-11.0)
--- OUTSIDE RECORDS SUMMARY | 2023-10-03 10:01 | XMS RPT_ITS | CCD ---
Author Name Unknown Address [address] [place] [address] Organization [facility] Care Team Providers Care Mushroom Picker Name Role Phone Jennifer Park DO Primary [...] DEINE] Drug Allergy 6 Intolerance, GI Upset Other [facility] (1 source) Acetaminophen / Codeine; Translations: [Tylenol with Codeine #3] Drug Allergy [facility] Work Phone: (1 source) Morphine Derivatives; Translations: [Morphine Derivatives] Allergy to drug (finding) [facility] Work Phone: Medications Current Medications Medication Drug [...] 162.6 cm Zulma Serra APRN.[employer] Work Phone: 03-17-2023 13:53-0400 Body temperature 97 [degF] Zulma Serra APRN.[employer] Work Phone: 03-17-2023 13:53-0400 Body weight 84.82 kg Zulma Serra APRN.[employer] Work Phone: 03-17-2023 13:53-0400 Diastolic blood pressure 67 mm[Hg] Zulma Serra APRN.[employer] Work Phone: 03-17-2023 13:53-0400 Heart rate 74 /min Zulma Serra YARD GOODS SALESPERSON.DRY HOUSE ATTENDANT Work Phone: 03-17-2023 13:53-0400 Respiratory rate 16 /min Zulma Serra YARD GOODS SALESPERSON.DRY HOUSE ATTENDANT Work Phone: 03-17-2023 13:53-0400 SaO2% (BldA) [Mass fraction] 97 % Zulma Serra YARD GOODS SALESPERSON.DRY HOUSE ATTENDANT Work Phone: 03-17-2023 13:53-0400 Systolic blood pressure 109 mm[Hg] Zulma Serra YARD GOODS SALESPERSON.DRY HOUSE ATTENDANT Work Phone: 02-26-2023 09:19-0400 Body height 162.56 cm Lizzy [employer] Work Phone: [employer] [facility] Work Phone: 02-26-2023 09:19-0400 Body mass index (BMI) [Ratio] 31.98 kg/m2 [employer] Work Phone: [facility] Work Phone: 02-26-2023 09:19-0400 Body surface area Derived from formula 1.9 m2 [employer] [facility] Phone: [facility] Work Phone: 02-26-2023 09:19-0400 Body temperature 97.8 [degF] [employer] Work [facility]: [facility] Work Phone: 02-26-2023 09:19-0400 Body weight 84.51 kg Lizzy [employer] Work [facility]: [facility] Work Phone: 02-26-2023 09:19-0400 Diastolic blood pressure 85 mm[Hg] [employer] Work Phone: [facility] Work Phone: 02-26-2023 09:19-0400 Heart rate 80 /min Lizzybrenda Calderónovic Work Phone: [facility] Work Phone: 02-26-2023 09:19-0400 Respiratory rate 18 /min Lizzybrenda King Work Phone: [facility] Work Phone: 02-26-2023 09:19-0400 SaO2% (BldA) [Mass fraction] 96 % Lizzy Christine Work Phone: [facility] Work Phone: 02-26-2023 09:19-0400 Systolic blood pressure 120 mm[Hg] Lizzybrenda King Work Phone: [facility] Work Phone: 04-10-2022 18:22-0400 Diastolic blood pressure 74 mm[Hg] Stewrat Romo MD Work Phone: [facility] 04-10-2022 18:22-0400 Heart rate 66 /min Stewart Romo MD Work Phone: [facility] 04-10-2022 18:22-0400 Respiratory rate 16 /min Stewart Romo MD Work Phone: [facility] 04-10-2022 18:22-0400 SaO2% (BldA) [Mass fraction] 99 % Stewart Romo MD Work Phone: [facility] 04-10-2022 18:22-0400 Systolic blood pressure 128 mm[Hg] Stewart Romo MD Work Phone: [facility] 04-10-2022 17:26-0400 Body height 162.6 cm Stewart Romo MD Work Phone: [facility] 04-10-2022 17:26-0400 Body mass index (BMI) [Ratio] 31.76 kg/m2 Stewart Romo MD Work Phone: [facility] 04-10-2022 17:26-0400 Body temperature 98.29 [degF] Stewart Romo MD Work Phone: [facility] 04-10-2022 17:26-0400 Body weight 83.92 kg Stewart Romo MD Work Phone: [facility] 03-18-2021 12:09-0400 Body height 162.6 cm Ming Link MD Work Phone: [facility] Work Phone: 03-18-2021 12:09-0400 Body mass index (BMI) [Ratio] 32.61 kg/m2 Ming Link MD Work Phone: [facility] Work Phone: 03-18-2021 12:09-0400 Body temperature 98.2 [degF] Ming Link MD Work Phone: [facility] Work Phone: 03-18-2021 12:09-0400 Body weight 86.18 [...] 99 % Ming Link MD Work Phone: [facility] Work Phone: 03-18-2021 12:09-0400 Systolic blood pressure 136 mm[Hg] Ming Link MD Work Phone: [facility] Work Phone: Encounters Encounter Date Encounter Type Care Provider Facility Start: 07-24-2023 End: 07-24-2023 ambulatory [facility] Start: 06-05-2023 End: 06-05-2023 ambulatory [facility] Start: 03-17-2023 End: 03-17-[address] [facility] Facility:[facility] Start: 03-17-2023 End: 03-17-2023 Patient encounter procedure Zulma Galindosathish KISER.DRY HOUSE ATTENDANT Work Phone: [facility] Procedures [...] Lizzy King, Status: Pen, Time: 9:00 AM [facility] Work Phone: Start: 03-30-2023 Influenza vaccination INFLUENZA (#1) Start: 03-30-2022 Influenza vaccination Flu vaccine (# 1) [facility] Start: 10-06-2021 COVID-19 VACCINE (4 - Pfizer series) COVID-19 VACCINE (4 - Pfizer series) Start: 03-30-2021 Influenza vaccination Flu vaccine (# 1) [facility] Work Phone: Start: 08-28-2019 HPV TESTING HPV TESTING Start: 08-28-2019 PAP TESTING PAP TESTING Start: 2019 Diabetes screen Diabetes screen [facility] Start: 2014 Screening for malign ant neoplasm of cervix [facility] Start: 2005 Screening for malign ant neoplasm of cervix [facility] Start: 2003 Urine microalbumin profile DTAP,TDAP,TD (1 - Tdap) Start: 2002 Hepatitis C screening Hepatitis C sc reen [facility] Start: 1999 HIV screening HIV screen [facility] Start: 1996 Depression Monitoring Depression Mon itoring [facility] Start: 1985 Varicella vaccine (1 of 2 - 2-dose childhood series) Varicella vaccine (1 of 2 - 2-dose childhood series) [facility] Start: 1984 Hepatitis C screening Hepatitis C sc reen [facility] Work Phone: Immunizations Immunization Date Immunization Notes Care Provider Jeffry pisano 08-11-2021 Comirnaty 30 MCG/0.3 ML Intramuscular Suspension Lizzy Christine Work Phone: 03-01-2021 Pfizer-BioNTech COVI D-19 Vacc 30 MCG/0.3ML Intramuscular Suspension Lizzy Christine Work Phone: 01-27-2021 Pfizer-BioNTech COVI D-19 Vacc 30 MCG/0.3ML Intramuscular Suspension Lizzy Christine Work Phone: 11-15-2020 tetanus toxoid, redu jessica diphtheria toxoid, and acellular pertussis vaccine, adsorbed [facility]zy Christine [facility] Work Phone: 07-27-2020 influenza virus vacc ine, unspecified formulation Ming Link MD Work Phone: [facility] Work Phone: 07-27-2020 influenza, seasonal, injectable, preservative free Lizzy Christine [facility] Work Phone: 08-08-2019 Influenza, injectabl e, Madin Farrah Canine Kidney, preservative free, quadrivalent Ming Link MD Work Phone: [facility] Work Phone: 06-05-2018 influenza, injectabl e, quadrivalent, contains preservative Ming Link MD Work Phone: [facility] Work Phone: 05-25-2017 Influenza Vaccine, unspecified formulation Ming Link MD Work Phone: [facility] Work Phone: 05-19-2016 influenza, injectabl e, quadrivalent, contains preservative Ming Link MD Work Phone: [facility] 06-17-2008 influenza virus vacc ine, unspecified formulation Ming Link MD Work Phone: [facility] Work Phone: Payers Date Payer Category Payer Unknown [id number] 2016 Unknown 1984 Unknown [id number] 1984 Unknown [id number] 1984 Unknown [id number] [id number]. [id number] 1984 Unknown [id number] [id number]. [id number] 1984 Unknown [id number] [id number]. [id number] Social History Date Type Detail Facility Start: 05-15-2017 End: 03-18-2021 Tobacco smoking status [facility] Former smoker [facility] End: 2018 History of tobacco use Current smoker [facility] Start: 03-18-2021 End: 08-25-2022 Cigarettes smoked current (pack per day) - Reported [facility] Work Phone: Progress note 03-17-2023 Note Date & Type Note Facility 03-17-2023 Note HNO ID: [id number] Author: Zulma Serra APRN.DRY HOUSE ATTENDANT Service: ? Author Type: Nurse Practitioner Type: [...] 07/13/2006 Past Medical History: No date: Alcoholism ([facility]) 03/09/09: Encounter for insertion [...] lower lid swe (more content not included)... [facility] History of Present illness Narrative 03-17-2023 Zulma Serra APRN.DRY HOUSE ATTENDANT - 03/17/2023 1:55 PM EDT Note Date [...] which included preparing to see the patient, [id number] patient care, completing clinical documentation, obtaining and/or reviewing separately obtained history, performing a medically appropriate examination, counseling and educating the patient/family/caregiver, and ordering medications, tests, or procedures. documented in this encounter Instructions 03-17-2023 Patient Instructions Note Date & [...] with warning symptoms. documented in this encounter History of Present illness Narrative 02-25-2023 Note [...] had just continued to follow up w POWERHOUSE OPERATOR for anxiety/depression management. At this time is taking Desvenlafaxine but has reached out to FAMILY DEVELOPMENT SPECIALIST who has just not sent in a new prescription for sertraline 50 mg daily and patient will stop the desvenlafaxine today. She does take buspirone 5 mg p.o. twice daily as needed for anxiety-buspirone is considered to be safe in (animal studies did not show adverse effects on fetus) still advised to avoid if possible and review with FAMILY DEVELOPMENT SPECIALIST if she would like to continue. States only takes the medication as needed which is seldom. FAMILY DEVELOPMENT SPECIALIST is Dr. Marivel Abreu.Reports that she also [...] rainingScreenings: Pap- up to date follows w POWERHOUSE OPERATOR Last in October 2022, unsure about HPV testing at that timeImmunizations: flu, Tdap, covid, -reviewed -[facility] Work Phone: Hospital Discharge instructions 04-10-2022 [...] cannot be sent through Care Everywhere.Elbow: Tennis (Greek)documented in this encounter [facility] Work Phone: History of Past illness Narrative 07-13-2006 Note Date & Type Note Facility documented as of this encounter (statuses as of 03/17/2023) Evaluation note Note Date & Type Note Facility documented in this encounter [facility] Work Phone: Evaluation note Note Date & Type Note Facility documented in this encounter [facility] Work Phone: Evaluation note Note Date & Type Note Facility documented in this encounter Hospital Discharge instructions Attachments Note Date & Type Note Facility Hospital Discharge instructions The following attachments cannot be sent through Care Everywhere.Lacerations: Adhesives (Greek)Abrasions (Greek)documented in this encounter [facility] Work Phone: Advance Directives No Advanced Directives Records FoundDocuments on File Type Date Recorded Patient Percussion Instrument Tuner Expl anation ACP-Advance Directive ACP-Power of Children'S Aide Latest Code Status on File Code Status [...] Care Teams (unrecognized sec tion and content) Mushroom Picker Relationship Specialty Start Date End Date Jennifer Park [address] [place] [address] PCP - General Internal Medicine 05/15/17 INFORMATION SOURCE (unrecogn ized section and content) DATE CREATED AUTHOR AUTHOR'S ORGANIZ ATION 04/11/2022 [facility] DATE CREATED AUTHOR AUTHOR'S ORGANIZ ATION 11/22/2022 [facility] DATE CREATED AUTHOR AUTHOR'S ORGANIZ ATION 02/26/2023 [facility] DATE CREATED AUTHOR AUTHOR'S ORGANIZ ATION 02/27/2023 [employer] DATE CREATED AUTHOR AUTHOR'S ORGANIZ ATION 03/18/2023 [facility] DATE CREATED AUTHOR AUTHOR'S ORGANIZ ATION 07/26/2023 [facility] Source Comments (unrecognize d section and content) In the event this informatio n is protected by the Federal Confidentiality of Alcohol and Drug Abuse Patient Records regulations: The Federal rules restrict any use of the information to criminally investigate or prosecute any alcohol or drug abuse patient. FOR RECORDS PERTAINING TO PATIENTS WHO ARE [...] BE BASED ON THE PRIMARY CLINICAL RECORDS. [employer] provides no warranty or guarantee of the accuracy or completeness of information in this document.
[2023-10-03 10:57] LABS: ALB/GLOB Ratio 0.6 RATIO (0.9-2.4); AST(SGOT) 28 U/L (15-37); Alanine Aminotransfer ALT/SGPT 33 U/L (13-56); Albumin, Serum 2.3 g/dL (3.2-5.0); Alkaline Phosphatase 171 U/L (45-117); Anion Gap 7 (5-15); BUN 10 mg/dL (7-18); BUN/Creat Ratio 16.1 RATIO (10-20); Calcium,Total 8.7 mg/dL (8.5-10.1); Chloride 107 mmol/L (98-107); Creatinine, Serum 0.62 mg/dL (0.55-1.02); EST Glomerular Filtration Rate 113 mL/min (>60); Est Glom Filt Rate - Afr Amer 137 mL/min (>60); Glucose 96 mg/dL (74-106); Potassium 4.1 mmol/L (3.5-5.1); Protein, Total 6.3 g/dL (6.4-8.2); Sodium Level 139 mmol/L (136-145)
[2023-10-03 11:15] LABS: Protein, Urine (Random) 68.3 mg/dL (<11.9); Protein:Creat Ratio 514 mg/g CRE (0-200)
== END | disposition home or self-care (01) ==
PROVIDERS: Referring Provider Obstetrics & Gynecology; Visit Provider Obstetrics & Gynecology
DX: O12.10 Gestational proteinuria, unspecified trimester (principal); Z3A.00 Weeks of gestation of pregnancy not specified
CPT/HCPCS: 36415; 80053; 82570; 84156; 85025

== ENCOUNTER → 2023-10-05 | Outpatient (CLI) | payer BC, SELFPAY ==
[2023-10-05 18:02] LABS: Protein, Urine (Random) 28.9 mg/dL (<11.9); Protein:Creat Ratio 450 mg/g CRE (0-200)
== END | disposition home or self-care (01) ==
PROVIDERS: Referring Provider Advanced Practice Midwife; Visit Provider Advanced Practice Midwife
DX: O12.10 Gestational proteinuria, unspecified trimester (principal); Z3A.00 Weeks of gestation of pregnancy not specified
CPT/HCPCS: 82570; 84156

== ENCOUNTER → 2023-10-09 | Outpatient (CLI) | payer BC, SELFPAY ==
[2023-10-09 10:30] LABS: Absolute Lymphocyte Count 1.09 X10^3/uL (0.83-4.51); Absolute Neutrophil Count 5.1 X10^3/uL (2.0-7.7); Basophil# 0.02 X10^3/uL; Basophil% 0.3 % (0-1); Eosinophil# 0.07 X10^3/uL; Hematocrit 35.3 % (37-47); Hemoglobin 11.5 g/dL (12.0-15.0); Lymphocyte # 1.09 X10^3/ul (0.83-4.51); Lymphocyte % 15.3 % (19-41); Mean Corp Hgb Conc 32.6 g/dL (32-36); Mean Corpuscular Volume 89.1 fL (81-99); Mean Platelet Vol. 10.4 fl (6.2-12.0); Monocyte# 0.78 X10^3/uL; Monocyte% 10.9 % (0-10); NRBC Flagged by Analyzer 0 % (0-5); Neutrophil # 5.14 X10^3/uL (2.7-7.7); Neutrophil % 71.9 % (47-70); Platelet Count 266 K/mm3 (150-450); RBC Distribution Width CV 12.5 % (11.6-14.6); RBC Distribution Width SD 40.6 fl (35.1-43.9); Red Blood Count 3.96 M/mm3 (4.2-5.4); White Blood Count 7.1 K/mm3 (4.4-11.0)
[2023-10-09 10:43] LABS: Protein:Creat Ratio 390 mg/g CRE (0-200)
[2023-10-09 10:48] LABS: ALB/GLOB Ratio 0.5 RATIO (0.9-2.4); AST(SGOT) 27 U/L (15-37); Alanine Aminotransfer ALT/SGPT 31 U/L (13-56); Albumin, Serum 2.3 g/dL (3.2-5.0); Alkaline Phosphatase 195 U/L (45-117); Anion Gap 6 (5-15); BUN 6 mg/dL (7-18); BUN/Creat Ratio 9.4 RATIO (10-20); Calcium,Total 8.7 mg/dL (8.5-10.1); Chloride 108 mmol/L (98-107); Creatinine, Serum 0.64 mg/dL (0.55-1.02); EST Glomerular Filtration Rate 110 mL/min (>60); Est Glom Filt Rate - Afr Amer 133 mL/min (>60); Globulin 4.4 g/dL (2.2-4.2); Glucose 92 mg/dL (74-106); Potassium 4.4 mmol/L (3.5-5.1); Protein, Total 6.7 g/dL (6.4-8.2); Sodium Level 139 mmol/L (136-145)
== END | disposition home or self-care (01) ==
PROVIDERS: Referring Provider Obstetrics & Gynecology; Visit Provider Obstetrics & Gynecology
DX: O12.10 Gestational proteinuria, unspecified trimester (principal); Z3A.00 Weeks of gestation of pregnancy not specified
CPT/HCPCS: 36415; 80053; 82570; 84156; 85025; 87081

== ENCOUNTER → 2023-10-12 | Outpatient (CLI) | payer BC, SELFPAY ==
--- OUTSIDE RECORDS SUMMARY | 2023-10-12 09:32 | XMS RPT_ITS | CCD ---
Author Name Unknown Address [address] [place] [address] Organization [facility] Care Team Providers Care Family Development Extension Specialist Name Role Phone Jennifer Park DO Primary Care Provider [phone] Stewart Romo Attending Unavailable Jennifer Park Referring [...] DEINE] Drug Allergy 6 Intolerance, GI Upset [facility] Other [facility] (1 source) Acetaminophen / Codeine; Translations: [Tylenol with Codeine #3] Drug Allergy [facility] Work Phone: (1 source) Morphine Derivatives; Translations: [Morphine Derivatives] Allergy to drug (finding) [facility] Work Phone: Medications Current Medications Medication [...] 162.6 cm Zulma Serra APRN.CONSTANTIN Work Phone: [facility] 03-17-2023 13:53-0400 Body temperature 97 [degF] Zulma Serra APRN.[employer]ANT[employer] Work Phone: [facility] 03-17-2023 13:53-0400 Body weight 84.82 kg Zulma Serra APRN.[employer] Work Phone: [facility] 03-17-2023 13:53-0400 Diastolic blood pressure 67 mm[Hg] Zulma Serra APRN.CONSTANTIN Work Phone: [facility] 03-17-2023 13:53-0400 Heart rate 74 /min Zulma Serra ROPE CUTTER.CONVENTIONAL UNDERWRITER Work Phone: [facility] 03-17-2023 13:53-0400 Respiratory rate 16 /min Zulma Serra ROPE CUTTER.CONVENTIONAL UNDERWRITER Work Phone: [facility] 03-17-2023 13:53-0400 SaO2% (BldA) [Mass fraction] 97 % Zulma Serra ROPE CUTTER.CONVENTIONAL UNDERWRITER Work Phone: [facility] 03-17-2023 13:53-0400 Systolic blood pressure 109 mm[Hg] Zulma Serra ROPE CUTTER.CONVENTIONAL UNDERWRITER Work Phone: [facility] 02-26-2023 09:19-0400 Body height 162.56 cm Lizzy [employer] Work Phone: [employer] [facility] Work Phone: 02-26-2023 09:19-0400 Body mass index (BMI) [Ratio] 31.98 kg/m2 [employer] Work Phone: [facility] Work Phone: 02-26-2023 09:19-0400 Body surface area Derived from formula 1.9 m2 [employer] Work Phone: [facility] Work Phone: 02-26-2023 09:19-0400 Body temperature 97.8 [degF] Lizzy [employer] Work Phone: [facility] Work Phone: 02-26-2023 09:19-0400 Body weight 84.51 kg Lizzy [employer] Work Phone: [facility] Work Phone: 02-26-2023 09:19-0400 Diastolic blood pressure 85 mm[Hg] [employer] Work Phone: [facility] Work Phone: 02-26-2023 09:19-0400 Heart rate 80 /min Lizzybrenda Calderónovic Work Phone: [facility] Work Phone: 02-26-2023 09:19-0400 Respiratory rate 18 /min Lizzybrenda King Work Phone: [facility] Work Phone: 02-26-2023 09:19-0400 SaO2% (BldA) [Mass fraction] 96 % Lizzy Christine Work Phone: [facility] Work Phone: 02-26-2023 09:19-0400 Systolic blood pressure 120 mm[Hg] Lizzybrenda King Work Phone: [facility] Work Phone: 04-10-2022 18:22-0400 Diastolic blood pressure 74 mm[Hg] Stewart Romo MD Work Phone: [facility] 04-10-2022 18:22-0400 Heart rate 66 /min Stewart Romo MD Work Phone: [facility] 04-10-2022 18:22-0400 Respiratory rate 16 /min Stewart Romo MD Work Phone: [facility] 04-10-2022 18:22-0400 SaO2% (BldA) [Mass fraction] 99 % Stewart Romo MD Work Phone: [facility] 04-10-2022 18:22-0400 Systolic blood pressure 128 mm[Hg] Stewart Romo MD Work Phone: [facility] 04-10-2022 17:26-0400 Body height 162.6 cm Stewart Romo MD Work Phone: [facility] 04-10-2022 17:26-0400 Body mass index (BMI) [Ratio] 31.76 kg/m2 Stewart Romo MD Work Phone: [facility] 04-10-2022 17:26-0400 Body temperature 98.29 [degF] Stewart Romo MD Work Phone: [facility] 04-10-2022 17:26-0400 Body weight 83.92 kg Stewart Romo MD Work Phone: [facility] 03-18-2021 12:09-0400 Body height 162.6 cm Ming Link MD Work Phone: [facility] Work Phone: 03-18-2021 12:09-0400 Body mass index (BMI) [Ratio] 32.61 kg/m2 Ming Link MD Work Phone: [facility] Work Phone: 03-18-2021 12:09-0400 Body temperature 98.2 [degF] Ming Link MD Work Phone: [facility] Work Phone: 03-18-2021 12:09-0400 Body weight 86.18 [...] 99 % Ming Link MD Work Phone: [facility] Work Phone: 03-18-2021 12:09-0400 Systolic blood pressure 136 mm[Hg] Ming Link MD Work Phone: [facility] Work Phone: Encounters Encounter Date Encounter Type Care Provider Facility Start: 07-24-2023 End: 07-24-[address] [facility] Start: 06-05-2023 End: 06-05-[address] [facility] Start: 03-17-2023 End: 03-17-2023 ambulatory [facility] Facility:[facility] Start: 03-17-2023 End: 03-17-2023 Patient encounter procedure Zulma Galindosathish KISER.CONVENTIONAL UNDERWRITER Work Phone: [facility] Procedures [...] Lizzy King, Status: Pen, Time: 9:00 AM [facility] Work Phone: Start: 03-30-2023 Influenza vaccination INFLUENZA (#1) [facility] Start: 03-30-2022 Influenza vaccination Flu vaccine (# 1) [facility] Start: 10-06-2021 COVID-19 VACCINE (4 - Pfizer series) COVID-19 VACCINE (4 - Pfizer series) [facility] Start: 03-30-2021 Influenza vaccination Flu vaccine (# 1) [facility] Work Phone: Start: 08-28-2019 HPV TESTING HPV TESTING [facility] Start: 08-28-2019 PAP TESTING PAP TESTING [facility] Start: 2019 Diabetes screen Diabetes screen [facility] Start: 2014 Screening for malign ant neoplasm of cervix [facility] Start: 2005 Screening for malign ant neoplasm of cervix [facility] Start: 2003 Urine microalbumin profile DTAP,TDAP,TD (1 - Tdap) [facility] Start: 2002 Hepatitis C screening Hepatitis C sc reen [facility] Start: 1999 HIV screening HIV screen [facility] Start: 1996 Depression Monitoring Depression Mon itoring [facility] Start: 1985 Varicella vaccine (1 of 2 - 2-dose childhood series) Varicella vaccine (1 of 2 - 2-dose childhood series) [facility] Start: 1984 Hepatitis C screening Hepatitis C sc reen [facility] Work Phone: Immunizations Immunization Date Immunization Notes Care Provider Jeffry pisano 08-11-2021 Comirnaty 30 MCG/0.3 ML Intramuscular Suspension Lizzy Christine Work Phone: [facility] 03-01-2021 Pfizer-BioNTech COVI D-19 Vacc 30 MCG/0.3ML Intramuscular Suspension Lizzy Christine Work Phone: [facility] 01-27-2021 Pfizer-BioNTech COVI D-19 Vacc 30 MCG/0.3ML Intramuscular Suspension Lizzy Christine Work Phone: [facility] 11-15-2020 tetanus toxoid, redu jessica diphtheria toxoid, and acellular pertussis vaccine, adsorbed Lizzy Christine Work Phone: [facility] Work Phone: 07-27-2020 influenza virus vacc ine, unspecified formulation Ming Link MD Work Phone: [facility] Work Phone: 07-27-2020 influenza, seasonal, injectable, preservative free Lizzy Christine Work Phone: [facility] Work Phone: 08-08-2019 Influenza, injectabl e, Madin Farrah Canine Kidney, preservative free, quadrivalent Ming Link MD Work Phone: [facility] Work Phone: 06-05-2018 influenza, injectabl e, quadrivalent, contains preservative Ming Link MD Work Phone: [facility] Work Phone: 05-25-2017 Influenza Vaccine, unspecified formulation Ming Link MD Work Phone: [facility] Work Phone: 05-19-2016 influenza, injectabl e, quadrivalent, contains preservative Ming Link MD Work Phone: [facility] 06-17-2008 influenza virus vacc ine, unspecified formulation Ming Link MD Work Phone: [facility] Work Phone: Payers Date Payer Category Payer Unknown [id number] 2016 Unknown 1984 Unknown [id number] 1984 Unknown [id number] [id number] 1984 Unknown [id number] [id number]. [id number] 1984 Unknown [id number] [id number]. [id number] 1984 Unknown [id number] [id number] Social History Date Type Detail Facility Start: 05-15-2017 End: 03-18-2021 Tobacco smoking status [facility] Former smoker [facility] End: 2018 History of tobacco use Current smoker [facility] Start: 03-18-2021 End: 08-25-2022 Cigarettes smoked current (pack per day) - Reported [facility] Work Phone: Progress note 03-17-2023 Note Date & Type Note Facility 03-17-2023 Note HNO ID: [id number] Author: Zulma Serra APRN.CONVENTIONAL UNDERWRITER Service: ? Author Type: Nurse Practitioner Type: [...] Medical History: No date: Alcoholism ([facility]) 03/09/09: Encounter for insertion or removal of [...] lower lid swe (more content not included)... [facility] History of Present illness Narrative 03-17-2023 Zulma Serra APRN.CONVENTIONAL UNDERWRITER - 03/17/2023 1:55 PM EDT Note Date [...] which included preparing to see the patient, [id number] patient care, completing clinical documentation, obtaining and/or reviewing separately obtained history, performing a medically appropriate examination, counseling and educating the patient/family/caregiver, and ordering medications, tests, or procedures. documented in this encounter [facility] Instructions 03-17-2023 Patient Instructions Note Date & [...] with warning symptoms. documented in this encounter [facility] History of Present illness Narrative 02-25-2023 Note [...] had just continued to follow up w CLEAN UP SUPERVISOR for anxiety/depression management. At this time is taking Desvenlafaxine but has reached out to ELECTROPHYSIOLOGY TECHNOLOGIST who has just not sent in a new prescription for sertraline 50 mg daily and patient will stop the desvenlafaxine today. She does take buspirone 5 mg p.o. twice daily as needed for anxiety-buspirone is considered to be safe in (animal studies did not show adverse effects on fetus) still advised to avoid if possible and review with ELECTROPHYSIOLOGY TECHNOLOGIST if she would like to continue. States only takes the medication as needed which is seldom. ELECTROPHYSIOLOGY TECHNOLOGIST is Dr. Marivel Abreu.Reports that she also [...] rainingScreenings: Pap- up to date follows w CLEAN UP SUPERVISOR Last in October 2022, unsure about HPV testing at that timeImmunizations: flu, Tdap, covid, -reviewed -[facility] Work Phone: Hospital Discharge instructions 04-10-2022 Discharge [...] cannot be sent through Care Everywhere.Elbow: Tennis (Stateless)documented in this encounter [facility] Work Phone: History of Past illness Narrative 07-13-2006 Note Date & Type Note Facility documented as of this encounter (statuses as of 03/17/2023) [facility] Evaluation note Note Date & Type Note Facility documented in this encounter [facility] Work Phone: Evaluation note Note Date & Type Note Facility documented in this encounter [facility] Work Phone: Evaluation note Note Date & Type Note Facility documented in this encounter [facility] Hospital Discharge instructions Attachments Note Date & Type Note Facility Hospital Discharge instructions The following attachments cannot be sent through Care Everywhere.Lacerations: Adhesives (Stateless)Abrasions (Stateless)documented in this encounter [facility] Work Phone: Advance Directives No Advanced Directives Records FoundDocuments on File Type Date Recorded Patient Tipple Mechanic Expl anation ACP-Advance Directive ACP-Power of Dietist Latest Code Status on File Code Status [...] Care Teams (unrecognized sec tion and content) Family Development Extension Specialist Relationship Specialty Start Date End Date Jennifer Park [address] [place] [address] PCP - General Internal Medicine 05/15/17 INFORMATION SOURCE (unrecogn ized section and content) DATE CREATED AUTHOR AUTHOR'S ORGANIZ ATION 04/11/2022 [facility] DATE CREATED AUTHOR AUTHOR'S ORGANIZ ATION 11/22/2022 [facility] DATE CREATED AUTHOR AUTHOR'S ORGANIZ ATION 02/26/2023 [facility] DATE CREATED AUTHOR AUTHOR'S ORGANIZ ATION 02/27/2023 [employer] DATE CREATED AUTHOR AUTHOR'S ORGANIZ ATION 03/18/2023 [facility] DATE CREATED AUTHOR AUTHOR'S ORGANIZ ATION 07/26/2023 [facility] Comments (unrecognize d section and content) In the event this informatio n is protected by the Federal Confidentiality of Alcohol and Drug Abuse Patient Records regulations: The Federal rules restrict any use of the information to criminally investigate or prosecute any alcohol or drug abuse patient.[facility] FOR RECORDS PERTAINING TO PATIENTS WHO ARE [...] BE BASED ON THE PRIMARY CLINICAL RECORDS. [employer] provides no warranty or guarantee of the accuracy or completeness of information in this document.
[2023-10-12 09:50] LABS: Absolute Lymphocyte Count 1.17 X10^3/uL (0.83-4.51); Basophil# 0.02 X10^3/uL; Basophil% 0.3 % (0-1); Eosinophil# 0.05 X10^3/uL; Eosinophils% 0.7 % (0-5); Hematocrit 34.1 % (37-47); Hemoglobin 11.1 g/dL (12.0-15.0); Lymphocyte # 1.17 X10^3/ul (0.83-4.51); Lymphocyte % 16.6 % (19-41); Mean Corp Hgb Conc 32.6 g/dL (32-36); Mean Corpuscular Hgb 29.2 pg (27.0-32.0); Mean Corpuscular Volume 89.7 fL (81-99); Mean Platelet Vol. 10.8 fl (6.2-12.0); Monocyte# 0.77 X10^3/uL; Monocyte% 10.9 % (0-10); NRBC Flagged by Analyzer 0 % (0-5); Neutrophil # 5.01 X10^3/uL (2.7-7.7); Neutrophil % 71.1 % (47-70); Platelet Count 251 K/mm3 (150-450); RBC Distribution Width CV 12.7 % (11.6-14.6); RBC Distribution Width SD 41.4 fl (35.1-43.9); White Blood Count 7.1 K/mm3 (4.4-11.0)
[2023-10-12 10:11] LABS: Protein, Urine (Random) 46.9 mg/dL (<11.9); Protein:Creat Ratio 408 mg/g CRE (0-200)
[2023-10-12 10:14] LABS: ALB/GLOB Ratio 0.5 RATIO (0.9-2.4); AST(SGOT) 30 U/L (15-37); Alanine Aminotransfer ALT/SGPT 36 U/L (13-56); Albumin, Serum 2.3 g/dL (3.2-5.0); Alkaline Phosphatase 199 U/L (45-117); Anion Gap 5 (5-15); BUN 9 mg/dL (7-18); BUN/Creat Ratio 12.1 RATIO (10-20); Calcium,Total 8.8 mg/dL (8.5-10.1); Chloride 107 mmol/L (98-107); Creatinine, Serum 0.74 mg/dL (0.55-1.02); EST Glomerular Filtration Rate 92 mL/min (>60); Est Glom Filt Rate - Afr Amer 111 mL/min (>60); Globulin 4.4 g/dL (2.2-4.2); Glucose 94 mg/dL (74-106); Potassium 4.6 mmol/L (3.5-5.1); Protein, Total 6.7 g/dL (6.4-8.2); Sodium Level 136 mmol/L (136-145)
== END | disposition home or self-care (01) ==
LOC: PAVLAB 09:07
PROVIDERS: Referring Provider Obstetrics & Gynecology; Visit Provider Obstetrics & Gynecology
DX: O12.10 Gestational proteinuria, unspecified trimester (principal); Z3A.00 Weeks of gestation of pregnancy not specified
CPT/HCPCS: 36415; 80053; 82570; 84156; 85025

== ENCOUNTER 2023-10-16 07:15 | Inpatient (IN) | payer BC, SELFPAY ==
[2023-07-29 18:34] VITALS: RESP 14
[2023-10-16] VITALS (79 sets, daily range): BP systolic 113–172; BP diastolic 61–89; PULSE 57–143; RESP 16–18; TEMP 35.7–37.2; O2SAT 81–99; BMI 37.0
[2023-10-16] MEDS: Oxytocin 15 Units/NS 250ml 15 UNITS/250 ML IV.SOLN 2 UNITS IV (08:40)
[2023-10-16] MEDS: Lactated Ringers 1,000 ML 50 ML IV (08:50)
[2023-10-16 09:12] LABS: Absolute Lymphocyte Count 1.15 X10^3/uL (0.83-4.51); Absolute Neutrophil Count 5.9 X10^3/uL (2.0-7.7); Basophil# 0.03 X10^3/uL; Basophil% 0.4 % (0-1); Eosinophil# 0.06 X10^3/uL; Eosinophils% 0.8 % (0-5); Hematocrit 34.8 % (37-47); Hemoglobin 11.1 g/dL (12.0-15.0); Lymphocyte # 1.15 X10^3/ul (0.83-4.51); Lymphocyte % 14.5 % (19-41); Mean Corp Hgb Conc 31.9 g/dL (32-36); Mean Corpuscular Hgb 28.2 pg (27.0-32.0); Mean Corpuscular Volume 88.3 fL (81-99); Mean Platelet Vol. 11.2 fl (6.2-12.0); Monocyte# 0.82 X10^3/uL; Monocyte% 10.3 % (0-10); NRBC Flagged by Analyzer 0 % (0-5); Neutrophil # 5.85 X10^3/uL (2.7-7.7); Neutrophil % 73.5 % (47-70); Platelet Count 258 K/mm3 (150-450); RBC Distribution Width CV 12.6 % (11.6-14.6); RBC Distribution Width SD 40.5 fl (35.1-43.9); Red Blood Count 3.94 M/mm3 (4.2-5.4)
[2023-10-16 09:48] LABS: Syphilis Antibodies Non-reactive
[2023-10-16] MEDS: LACTATED RINGERS 500 ML 999 ML IV ×2 (11:25→23:20)
[2023-10-16 12:07] LABS: Bedside Glucose 75 mg/dL (74-106)
[2023-10-16 12:07] LABS: Bedside Glucose 80 mg/dL (74-106)
[2023-10-16 12:07] LABS: Bedside Glucose 76 mg/dL (74-106)
[2023-10-16 12:27] LABS: Amphetamine Urine VISTA NEGATIVE (<1000 ng/mL); Barbiturate Urine VISTA NEGATIVE (< 200 ng/mL); Benzodiazepine Urine VISTA POSITIVE (< 200 ng/mL); Cocaine Urine VISTA NEGATIVE (< 300 ng/mL); Ecstacy Urine VISTA NEGATIVE (< 500 ng/mL); Methadone Urine VISTA NEGATIVE (< 300 ng/mL); PCP Urine VISTA NEGATIVE (< 25 ng/mL); THC Urine VISTA NEGATIVE (< 50 ng/mL); Vista UDS pH Range 6
--- NOTE | 2023-10-16 12:33 | HP.PCM.OB_ITS ---
HPI - General General Date of Admission: 10/16/23 HPI Narrative JULIANNE ONEAL, is a 38 F who presents for IOL secondary to preeclampsia and diabetes. Maternal Data Information QI Calculator Estimated Delivery Date Method Current WG Current Estimate 11/04/23 Ultrasound #1 37w 2d Other Estimates 11/12/23 LMP (Certain) 36w 1d [facility] Medical History Abnormal Pap smear of cervix Asthma Depression with anxiety Encounter for IUD removal FH: Down syndrome Gestational diabetes Heartburn History of pre-term labor Insomnia Pap smear for cervical cancer screening Preeclampsia Home Medications multivitamin no.47-iron fum 27 mg-folate no.1 1 mg-dha 300 mg capsule (PNV-DHA) 1 cap PO DAILY Check with primary doctor 06/22/20 [History Last Taken 10/16/23] doxylamine succinate 25 mg tablet (Unisom (doxylamine)) 5 mg PO QHS PRN sleep 04/05/23 [History Last Taken 10/15/23] omeprazole magnesium 20 mg tablet,delayed release (Prilosec OTC) 20 mg PO DAILY heartburn 04/05/23 [History Last Taken 10/15/23] sertraline 100 mg tablet 150 mg (1.5 x 100 mg) PO DAILY depression 30 days #45 tabs 08/02/23 [Rx Last Taken 10/16/23] blood sugar diagnostic (Blood Glucose Test strips) #120 ea 08/06/23 [Rx Last Taken Unknown] blood-glucose meter #1 ea 08/06/23 [Rx Last Taken Unknown] lancets #100 ea 08/06/23 [Rx Last Taken Unknown] metformin 500 mg tablet 500 mg PO BID #75 tabs 10/03/23 [Rx Last Taken Unknown] insulin NPH isoph U-100 human 100 unit/mL (3 mL) subcutaneous pen (Humulin N NPH U-100 Insulin KwikPen) 10 unit (0.1 mL) subcut QHS GDM #30 mL 10/09/23 [Rx Last Taken 10/15/23] aspirin 81 mg chewable tablet (Children's Aspirin) 81 mg PO DAILY Pre-eclampsia 10/16/23 [History Last Taken 10/16/23] metformin 500 mg tablet 500 mg PO BID GDM 10/16/23 [History Last Taken 10/16/23] Allergy/AdvReac Type Severity Reaction Status Date / Time codeine AdvReac Nausea Verified 10/12/23 08:18 morphine AdvReac Nausea Verified 10/12/23 08:18 Family History Mother Hypertension Narcolepsy Aunt Thyroid cancer Breast cancer, Onset Age: 50 maternal Grandmother Thyroid cancer Brother Trisomy 21 Other Cancer Surgical History H/O toe surgery Social History adopted: No household members: family housing: house number of children: 2 current occupational status: unemployed current occupation: [employer] pets and animals: Yes pets and animals: cat(s) and dog(s) history of recent travel: No sexually active: Yes Smoking Status: Former smoker second hand exposure: No alcohol intake: never substance use type: does not use caffeine: Yes Type: carbonated beverages Number of servings: 5 and coffee Number of servings: 1 what type of physical activity do you participate in: walking and bicycling frequency: 3-4 times per week seatbelt use: always do you feel safe at home: Yes additional social history: [id number]-Odzcp-[id number] 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 Date Name GA/Weeks Outcome Route Bth Weight Infant Gen Labor Lgth Anesthesia Del Locatn Provider FOB Unknown Peace-2003 33 live - 4lbs 15oz Fema le epidural [facility] Unknown Robin-2004 38 live - full term 6lbs 7oz Male 2 hours epidural [facility] Dr. Diggs Unknown Ana-2006 38 live - full term 7lbs 6.5oz Fem annamaria 7-8hours epidural [facility] Dr. Diggs/Dr. Beasley 01/18/21 Brayedn 37 live - full term Male [facility] Dr. Velasco Delivery Date: Last Updated by: Melisa Das hospitalized for 3 weeks until delivered at 33 weeks; NICU x1 week; burt orquidea broke apart after delivery; tore on her cervix per patient Delivery Date: Last Updated by: Melisa Das no complications Delivery Date: Last Updated by: Melisa Das decrease FHR- nuchal cord Delivery Date: 01/18/21 Last Updated by: Marissa Barrera COVID, Gestational diabetes, Preeclampsia Visit Details Expected Delivery Route/Plan Labor Preferences- CB/BF classes: [] labor support person: [] labor intervention preferences: [] pain management options preferred: [] cut cord/dad catch: [] : [] PP control planned: [] discussed possible routes of delivery and associated risks: [] special requests: [] Plans Covid status: declined Flu vaccine: given Tdap vaccine: [] Rhogam: [] LARC form signed: [] Problem list reviewed and updated with the most current plan of care details and appropriate orders placed. Relevant counseling for the gestational age provided. Continue routine care and follow up unless otherwise noted in visit notes/problem list details OB Flowsheet Initial Weight: Not Recorded Date -?-?-?-?-?-?-?-?-?-?-?-?- EGA Weight BP Urine Prot -?-?-?-?-?-?-?-?-?-?-?-?- Glucose FHR FuHt Pres Dilation -?-?-?-?-?-?-?-?-?-?-?-?- Effaced St Visit Note 04/05/23 -?-?-?-?-?-?-?-?-?-?-?-?- 9w 4d 186 lb 2 oz 113/78 -?-?-?-?-?-?-?-?-?-?-?-?- 180 -?-?-?-?-?-?-?-?-?-?-?-?- Sm- CRL 2.45cm N OT cons with LMP 04/30/23 -?-?-?-?-?-?-?-?-?-?-?-?- 13w 1d 186 lb 6 oz 118/78 -?-?-?-?-?-?-?-?-?-?-?-?- 160 -?-?-?-?-?-?-?-?-?-?-?-?- SM- no vb crampi ng 10/30/23 -?-?-?-?-?-?-?-?-?-?-?-?- 17w 1d 196 lb 123/80 Negative -?-?-?-?-?-?-?-?-?-?-?-?- Negative 150 -?-?-?-?-?-?-?-?-?-?-?-?- SM- no vb occasi onal cramping, feeling better 07/06/23 -?-?-?-?-?-?-?-?-?-?-?-?- 22w 5d 202 lb 2 oz 125/73 Nega tive -?-?-?-?-?-?-?-?--?-?-?-?- Negative 150 -?-?-?-?-?-?-?-?-?-?-?-?- SM- no vb lof cr amping good fm 08/02/23 -?-?-?-?-?-?-?-?-?-?-?-?- 26w 4d 209 lb 119/79 Negative -?-?-?-?-?-?-?-?-?-?-?-?- Negative 150 26 -?-?-?-?-?-?-?-?-?-?-?-?- SM- no vb occasi onal stephen parr no lof good fm increassed zoloft 09/07/23 -?-?-?-?-?-?-?-?-?-?-?-?- 31w 5d 214 lb 214 lb 111/76 111/76 Negative -?-?-?-?-?-?-?-?-?-?-?-?- Negative 145 32 -?-?-?-?-?-?-?-?-?-?-?--?- Sm- no vb lof go od fm no regular ctx reviewed BS recommend starting medication- chose metformin, start at night, only FBS elevated mainly 09/12/23 -?-?-?-?-?-?-?-?-?-?-?-?- 32w 3d 215 lb 116/77 1+ -?-?-?-?-?-?-?-?-?-?-?-?- Negative 140 0 -?-?-?-?-?-?-?-?-?-?-?-?- -4 MH-NST r eactive. Headache but very congested. [place] discharge and more pressure. See UA result, pre E labs 09/14/23 -?-?-?-?-?-?-?-?-?-?-?-?- 32w 5d 214 lb 107/72 Negative -?-?-?-?-?-?-?-?-?-?-?-?- Negative 140 -?-?-?-?-?-?-?-?-?-?-?-?- SM- no vb lof go od fm no reg ctx 09/19/23 -?-?-?-?-?-?-?-?-?-?-?-?- 33w 3d 218 lb 126/81 -?-?-?-?-?-?-?-?-?-?-?-?- 130 34 -?-?-?-?-?-?-?-?-?-?-?-?- JV- nst reactive . plan for labs again today. plan for growth scan soon. She had to cancel due to vomiting. JV- nst reactive. plan for l abs again today. plan for growth scan soon. She had to cancel due to vomiting. nurse dumped urine before able to send prot:cr. if does not do in lab today will rpt on sunday09/21/23 -?-?-?-?-?-?-?-?-?-?-?-?- 33w 5d 215 lb 124/80 Negative -?-?-?-?-?-?-?-?-?-?-?-?- Negative 135 34 -?-?-?-?-?-?-?-?-?-?--?-?- KW- NST reactive . no vb/lof/ctx. growth US on sunday. PC ratio today. no STOCK/dizziness/BV. 09/24/23 -?-?-?-?-?-?-?-?-?-?-?-?- 34w 1d 214 lb 4 oz 122/77 Nega tive -?-?-?-?-?-?-?-?-?-?-?-?- Negative 130 -?-?-?-?-?-?-?-?-?-?-?-?- JV- NST reactive . growth scan is later today. eager to hear about r rachel. 09/27/23 -?-?-?-?-?-?-?-?-?-?-?-?- 34w 4d 217 lb 4 oz 127/85 Nega tive -?-?-?-?-?-?-?-?-?-?-?-?- Negative 125 -?-?-?-?-?-?-?-?-?-?-?-?- KW-NST reactive. 84% SHIMON normal. 10/03/23 -?-?-?-?-?-?-?-?-?-?-?-?- 35w 3d 216 lb 6 oz 136/90 120/86 1+ -?-?-?-?-?-?-?-?-?-?-?-?- 130 36 -?-?-?-?-?-?-?-?-?-?-?-?- JV- reactive cat 1 nst. fasting levels are creeping up. increase metformin to bid and 1000 at night. weekly pih labs. 10/05/23 -?-?-?-?-?-?-?-?-?-?-?-?- 35w 5d 221 lb 4 oz 124/82 -?-?-?-?-?-?-?-?-?-?-?-?- -?-?-?-?-?-?-?-?-?-?-?-?- SM- no emani borjas, reviewed preeclampsia precautions, has gained 5 lbs in 2 days, suspect fluid retention, will watch bps at home, reiewed pree precautions. consider IOL at 37-38 depending on preeclampsia or uncontrolled diabetes. 10/09/23 -?-?-?-?-?-?-?-?-?-?-?-?- 36w 2d 217 lb 4 oz 136/83 136/83 Negative -?-?-?-?-?-?-?-?-?-?-?-?- Negative 140 -?-?-?-?-?-?-?-?-?-?-?-?- SM- labs ordered , no vb lof good fm BS not controlled, ordered nph 10U to start at night 10/12/23 -?-?-?-?-?-?-?-?-?-?-?-?- 36w 5d 218 lb 144/88 Negative -?-?-?-?-?-?-?-?-?-?-?-?- Negative 140 -?-?-?-?-?-?-?-?-?-?-?-?- SM- no vb lof go od fm no regular ctx discussed insulin adminstration- wa snot giving correctly likely will review with pharmacy. NST FHR Rate Baby A Baseline: 130 Variability:: Moderate Accelerations:: 15 x 15 Decelerations:: None NST Reactive:: Yes FHR Category:: Category I Uterine Activity:: irregular ROS Constitutional Constitutional: Reports systems reviewed and no addt'l complaints, except as documented Eyes Eyes: Denies change in vision ENT HEENT: Reports systems reviewed and no addt'l complaints, except as documented; Denies headache(s) Cardiovascular Cardiovascular: Reports systems reviewed and no addt'l complaints, except as documented; Denies chest pain or dyspnea Respiratory/Chest Respiratory/Chest: Reports systems reviewed and no addt'l complaints, except as documented Gastrointestinal Gastrointestinal: Reports systems reviewed and no addt'l complaints, except as documented; Denies abdominal pain Genitourinary Genitourinary: Reports systems reviewed and no addt'l complaints, except as documented, contractions Details: present (irregular) and movement Det ails: present; Denies dysuria or genital lesions Musculoskeletal Musculoskeletal: Reports systems reviewed and no addt'l complaints, except as documented Neurologic Neurologic: Reports systems reviewed and no addt'l complaints, except as documented Endocrine Endocrinology: Reports systems reviewed and no addt'l complaints, except as documented Vital Signs Vital Signs Vital Signs: 10/16/23 07:33 10/16/23 07:33 10/16/23 07:33 Temperature Temperature Source Pulse Rate 82 73 Respiratory Rate Blood Pressure 159/89 H BP Systolic 159 BP Diastolic 89 Pulse Ox 10/16/23 07:33 10/16/23 07:35 10/16/23 07:35 Temperature Temperature Source Temporal Pulse Rate 85 Respiratory Rate Blood Pressure BP Systolic BP Diastolic Pulse Ox 97 10/16/23 07:35 10/16/23 07:35 10/16/23 07:35 Temperature 96.2 F L Temperature Source Pulse Rate Respiratory Rate 18 Blood Pressure BP Systolic BP Diastolic Pulse Ox 97 10/16/23 07:38 10/16/23 07:38 10/16/23 07:43 Temperature Temperature Source Pulse Rate 70 81 Respiratory Rate Blood Pressure BP Systolic BP Diastolic Pulse Ox 97 10/16/23 07:43 10/16/23 07:48 10/16/23 07:48 Temperature Temperature Source Pulse Rate 82 Respiratory Rate Blood Pressure BP Systolic BP Diastolic Pulse Ox 98 98 10/16/23 07:56 10/16/23 07:56 10/16/23 09:17 Temperature Temperature Source Pulse Rate 78 Respiratory Rate Blood Pressure 142/82 H 154/84 H BP Systolic 142 154 BP Diastolic 82 84 Pulse Ox 10/16/23 09:17 10/16/23 09:17 10/16/23 09:13 Temperature Temperature Source Temporal Pulse Rate 65 Respiratory Rate Blood Pressure BP Systolic BP Diastolic Pulse Ox 99 10/16/23 09:13 10/16/23 09:13 10/16/23 09:13 Temperature Temperature Source Pulse Rate 68 Respiratory Rate 18 Blood Pressure BP Systolic BP Diastolic Pulse Ox 99 10/16/23 09:13 10/16/23 09:43 10/16/23 09:43 Temperature 97.7 F L Temperature Source Pulse Rate 68 Respiratory Rate Blood Pressure 130/74 H BP Systolic 130 BP Diastolic 74 Pulse Ox 10/16/23 10:58 10/16/23 10:58 10/16/23 10:58 Temperature Temperature Source Temporal Pulse Rate 65 Respiratory Rate Blood Pressure 135/69 H BP Systolic 135 BP Diastolic 69 Pulse Ox 10/16/23 11:08 10/16/23 10:58 10/16/23 10:58 Temperature Temperature Source Pulse Rate 65 65 Respiratory Rate 18 Blood Pressure BP Systolic BP Diastolic Pulse Ox 10/16/23 11:08 10/16/23 10:58 10/16/23 10:58 Temperature 98.2 F Temperature Source Pulse Rate Respiratory Rate Blood Pressure BP Systolic BP Diastolic Pulse Ox 97 97 10/16/23 11:45 10/16/23 11:45 10/16/23 11:44 Temperature Temperature Source Temporal Pulse Rate 63 Respiratory Rate Blood Pressure 134/69 H BP Systolic 134 BP Diastolic 69 Pulse Ox 10/16/23 11:45 10/16/23 11:44 10/16/23 11:44 Temperature Temperature Source Pulse Rate 69 63 Respiratory Rate 18 Blood Pressure BP Systolic BP Diastolic Pulse Ox 10/16/23 11:45 10/16/23 11:44 10/16/23 11:44 Temperature 98.6 F Temperature Source Pulse Rate Respiratory Rate Blood Pressure BP Systolic BP Diastolic Pulse Ox 97 97 Weight Weight: 216 lb 2 oz Body Mass Index (BMI) 37.0 Physical Exam Const alert, oriented x3, no apparent distress and healthy appearing HEENT normocephalic and moist oral mucous membranes Head and Scalp: atraumatic Neck full ROM, no lymphadenopathy, supple and thyroid normal General: trachea midline Lymph Lymphatic: no lymphadenopathy noted Chest inspection of chest normal Resp normal respiratory effort Cardio regular rate GI normal to inspection, nondistended, normoactive bowel sounds, soft to palpation and non-tender Inspection: gravid external exam normal Manual OB Exam: estimated gestational size appropriate, presentation cephalic, dilated, effaced and station Extremity normal to inspection General Extremity: Negative for edema Skin no rashes or lesions noted Neuro no focal motor deficits and deep tendon reflexes 2+ bilaterally Motor Exam: strength 5/5 throughout and clonus absent Psych mental status grossly normal Labs Labs Labs: Blood Type A POSITIVE Antibody Screen NEGATIVE Hct 34.8 % (37-47) L Hgb 11.1 g/dL (12.0-15.0) L Pap Smear Negative Obstetrics Ultrasound Syphilis Total Ab Non-reactive Rubella IgG Antibody Reactive (Nonreactive) Hep Bs Antigen Non-Reactive (Nonreactive) Hepatitis C Antibody Non-Reactive (Nonreactive) Chlamydia DNA (RUDY) Negative (Negative) N.gonorrhoeae DNA (RUDY) Negative (Negative) HIV 1&2 Antibody Non-Reactive (Nonreactive) Glucose 1 Hr 50 gm 265 mg/dL (70-140) H Miscellaneous Test Assessment & Plan (1) Pre-eclampsia in second trimester: COMMENT: plan iol yoselin or earlier if symptoms or severe bps. reveiwed precautions with patient, checking bps at home (2) Proteinuria affecting : QUALIFIERS: Trimester: third trimester Qualified Code(s): O12.13 - Gestational proteinuria, third trimester COMMENT: home bp monitoring, reviewed preeclampsia precautions. Pre E labs:nl CMP, CBC. Urine P/C:396, rpt weekly 09/21 387 continue weekly pih labs. (3) GDM (gestational diabetes mellitus): QUALIFIERS: Gestational diabetes mellitus control: oral hypoglycemic-controlled Trimester: third trimester Qualified Code(s): O24.415 - Gestational diabetes mellitus in , controlled by oral hypoglycemic drugs COMMENT: nph 10U at night started. increased metformin to bid 1000mg, 2x weekly NSTs. decreased control, may recommend 38 week delivery (4) Marginal insertion of umbilical cord: COMMENT: Growth US Q4wk (5) Hx of pre-eclampsia in prior , currently : COMMENT: baseline labs, baby asa recommended. (6) History of gestational diabetes mellitus (GDM) in prior , currently : COMMENT: HgA1C ordered 1 TM GCT-normal (7) AMA (advanced maternal age) multigravida 35+: QUALIFIERS: Trimester: second trimester Qualified Code(s): O09.522 - Supervision of elderly multigravida, second trimester COMMENT: low risk NIPT (8) Supervision of high risk , antepartum: COMMENT: PRR QI: 11/04/23 boy PC: Peace Bryson Kevin, Jenna Spouse: Deshawn (9) : QUALIFIERS: Weeks of gestation: 36 weeks Qualified Code(s): Z3A.36 - 36 weeks gestation of COMMENT: nl anatomy, nl NIPT screening, declines carrier screening. (10) Depression with anxiety: COMMENT: on zoloft (11) Encounter for induction of labor: PLAN: Plan Patient presents IOL, plan management for with pitocin/AROM. Pain management: plans epidural. GBS negative. Management of any complications: monitor BS and bps I have reviewed the [facility] and made any clinically relevant updates.
[2023-10-16 13:40] LABS: Bedside Glucose 100 mg/dL (74-106)
[2023-10-16] MEDS: Lactated Ringers 1,000 ML 200 ML IV ×2 (13:58→18:58)
[2023-10-16 14:10] LABS: Bedside Glucose 77 mg/dL (74-106)
[2023-10-16] MEDS: fentaNYL-bupivacaine (epidural) 100 ML BAG EPIDURAL (15:12)
--- NOTE | 2023-10-16 18:50 | OP.PCM_ITS ---
Assessment & Plan (1) Pre-eclampsia in second trimester: COMMENT: plan iol sunday or earlier if symptoms or severe bps. reveiwed precautions with patient, checking bps at home (2) Proteinuria affecting : QUALIFIERS: Trimester: third trimester Qualified Code(s): O12.13 - Gestational proteinuria, third trimester COMMENT: home bp monitoring, reviewed preeclampsia precautions. Pre E labs:nl CMP, CBC. Urine P/C:396, rpt weekly 09/21 387 continue weekly pih labs. (3) GDM (gestational diabetes mellitus): QUALIFIERS: Gestational diabetes mellitus control: oral hypoglycemic-controlled Trimester: third trimester Qualified Code(s): O24.415 - Gestational diabetes mellitus in , controlled by oral hypoglycemic drugs COMMENT: nph 10U at night started. increased metformin to bid 1000mg, 2x weekly NSTs. decreased control, may recommend 38 week delivery (4) Marginal insertion of umbilical cord: COMMENT: Growth US Q4wk (5) Hx of pre-eclampsia in prior , currently : COMMENT: baseline labs, baby asa recommended. (6) History of gestational diabetes mellitus (GDM) in prior , currently : COMMENT: HgA1C ordered 1 TM GCT-normal (7) AMA (advanced maternal age) multigravida 35+: QUALIFIERS: Trimester: second trimester Qualified Code(s): O09.522 - Supervision of elderly multigravida, second trimester COMMENT: low risk NIPT (8) Supervision of high risk , antepartum: COMMENT: PRR QI: 11/04/23 boy PC: Peace Bryson Kevin, Jenna Spouse: Deshawn (9) : QUALIFIERS: Weeks of gestation: 36 weeks Qualified Code(s): Z3A.36 - 36 weeks gestation of COMMENT: nl anatomy, nl NIPT screening, declines carrier screening. (10) Depression with anxiety: COMMENT: on zoloft (11) Encounter for induction of labor: (12) Vaginal delivery: COMMENT: SM IOL pree and gdma2 Maternal Data Information QI Calculator Estimated Delivery Date Method Current WG Current Estimate 11/04/23 Ultrasound #1 37w 2d Other Estimates 11/12/23 LMP (Certain) 36w 1d Vaginal Delivery Operative Information Date of Procedure: 10/16/23 Pre-Operative Diagnosis: see a/p diagnoses Post-Operative Diagnosis: same Surgery / Procedure Performed: Spontaneous Vaginal Delivery Type of Anesthesia: Epidural Special Medications: none Estimated Blood Loss: 300 Fluids Replaced: crystalloid Findings Description of Procedure: Patient began pushing and delivered the head in the HOMER presentation. The head was delivered atraumatically and a loose nuchal cord ?1 was identified and the delivered through without complication. The anterior and posterior shoulders delivered without complication followed by the rest of the and the infant was placed on the maternal abdomen. Delayed cord clamping was employed for approximately 60 seconds. Cord was clamped and cut and gentle traction was applied to the cord and the placenta delivered spontaneously immediately following it was noted to be intact with three-vessel cord. The perineum and vagina were inspected and noted to have no laceration. EBL was 300 hemabate given for mild atony. Patient and tolerated delivery well. Amniotic Fluid Description: Clear Placental Delivery Description: Spontaneous Placenta Disposition: [facility] Cord Vessel Description: 3 Vessels Cord Entanglement: Around neck x 1, loose Delayed Cord Clamping: Yes Post Vaginal Delivery Medications Given After Delivery: IV Pitocin Episiotomy Description: None Complication Complications: None Procedures Urinary/Genital [id number]: [id number] Vaginal Delivery [facility]
--- NOTE | 2023-10-16 18:55 | DCINST_ITS ---
Discharge Instructions Diet Discharge Diet: No restrictions Activity Discharge Activity: Return to Normal Activity, May Not Drive (while taking narcotic pain medications.) and May Shower May resume sexual activity in: 4-6 weeks Dressing / Incision Call your doctor if your incision/area has: Continuous Slow Oozing, Sudden Increased Bleeding, Increased Pain/ Swelling, Increased Redness and Foul Smelling Discharge Follow Up Care Please Follow Up With: Marivel Velasco MD When: Call [phone] to make an appointment with your doctor in 6 weeks. If you had elevated blood pressure or 4th degree laceration, you will need to be seen in 2 weeks. Test Results: Test results from this visit will be discussed in further detail at your follow- up appointment, if applicable. Discharge Plan Admission Admit Date/Time: 10/16/23 07:15 Attending Provider: Marivel Velasco Primary Care Provider: Care Physician,Snow Primary Discharge Orders/Prescriptions Prescriptions: No Action PNV-DHA 27 mg iron-1 mg -300 mg capsule 1 cap PO DAILY omeprazole magnesium [Prilosec OTC] 20 mg tablet,delayed release (DR/EC) 20 mg PO DAILY Unisom (doxylamine) 25 mg tablet 5 mg PO QHS PRN (Reason: sleep) sertraline 100 mg tablet 150 mg PO DAILY 30 Days Qty: 45 12RF metformin 500 mg tablet 500 mg PO BID Qty: 75 3RF Rx Instructions: take 2 at night time and 1 in the am Humulin N NPH Insulin KwikPen 100 unit/mL (3 mL) insulin pen 10 unit subcut QHS Qty: 30 5RF aspirin [Children's Aspirin] 81 mg tablet,chewable 81 mg PO DAILY metformin 500 mg tablet 500 mg PO BID (DME) blood-glucose meter Misc See Rx Instructions .MEDSUPPLY Qty: 1 0RF Rx Instructions: As directed- Test fasting and 2 hours after meals (DME) lancets Misc See Rx Instructions .MEDSUPPLY Qty: 100 6RF Rx Instructions: As directed-fasting & 2 hr post meals(4x/day) (DME) Blood Glucose Test Strip See Rx Instructions .Route Qty: 120 6RF Rx Instructions: As directed fasting and 2 hr post meals(4x/day) Referrals / Follow Up: Care Physician,No Primary [Primary Care Provider] - Disposition Disposition (needs filled in before D/C Order can be placed): Home, Self Care
[2023-10-16 18:59] LABS: Bedside Glucose 78 mg/dL (74-106)
[2023-10-16] MEDS: Carboprost Tromethamine 250 MCG/ML Ampul IM (19:35)
[2023-10-16] MEDS: Ondansetron 4 MG/2 ML Vial IV (19:55)
[2023-10-16] MEDS: Oxytocin 15 Units/NS 250ml 15 UNITS/250 ML IV.SOLN 83 UNITS IV (19:59)
[2023-10-16 20:47] LABS: Bedside Glucose 75 mg/dL (74-106)
[2023-10-16] MEDS: proCHLORPERazine 10 MG/2 ML Vial IV (22:03)
[2023-10-16] MEDS: Loperamide 2 MG Capsule 4 MG PO (22:29)
[2023-10-17] VITALS (11 sets, daily range): BP systolic 114–144; BP diastolic 64–79; PULSE 67–78; RESP 16–18; TEMP 36.1–36.8; O2SAT 93–98
[2023-10-17] MEDS: DiphenhydrAMINE 50 MG/ML Syringe IV (00:01)
[2023-10-17] MEDS: 0.9% Saline Lock 10 ML Syringe IV (00:01)
[2023-10-17 07:02] LABS: Bedside Glucose 112 mg/dL (74-106)
--- NOTE | 2023-10-17 08:22 | PCM.PN.OB ---
Subjective Subjective Patient doing well without complaints. Tolerating PO. Ambulating and voiding without difficulty. Feeding well. Denies chest pain, shortness of breath, calf pain/swelling, fevers, chills, lightheadedness. She tells me about her experience last night with an allergic reaction to Hemabate. Red, swollen leg and hives. Also had diarrhea and vomiting. She felt better after zofran and benadryl. Objective Data Objective Data Vital Signs: Vital Signs Temp Pulse Resp BP Pulse Ox O2 Del Method 97.7 F L 75 16 114/64 97 Room Air 10/17/23 02:59 10/17/23 07:41 10/17/23 02:59 10/17/23 07:39 10/17/23 07:41 10/17/23 02:59 Oxygen Delivery Method Room Air Weight: 216 lb 2 oz Body Mass Index (BMI) 37.0 Intake & Output: Intake and Output for Last 24 Hours 10/15/23 10/16/23 10/17/23 23:59 23:59 23:59 Intake Total 3466.42 / 3466.42 0 / 0 Output Total 825 / 925 700 / 700 Balance 2641.42 / 2541.42 -700 / -700 Lab / Micro Data 10/16/23 08:50 Labs: Laboratory Results - last 24 hr 10/16/23 08:50: WBC 8.0, RBC 3.94 L, Hgb 11.1 L, Hct 34.8 L, MCV 88.3, MCH 28.2, MCHC 31.9 L, RDW Std Deviation 40.5, RDW Coeff of Krys 12.6, Plt Count 258, MPV 11.2, Immature Gran % (Auto) 0.500, Neut % (Auto) 73.5 H, Lymph % (Auto) 14.5 L, Dickson % (Auto) 10.3 H, Eos % (Auto) 0.8, Baso % (Auto) 0.4, Absolute Neuts (auto) 5.9, Absolute Lymphs (auto) 1.15, Nucleated RBC % 0, Syphilis Total Ab Non-reactive, Blood Type A POSITIVE, Antibody Screen NEGATIVE 10/16/23 09:07: POC Glucose 76 10/16/23 10:50: POC Glucose 80 10/16/23 11:43: POC Glucose 75 10/16/23 11:55: Urine Opiates Screen NEGATIVE, Urine Methadone Screen NEGATIVE, Ur Barbiturates Screen NEGATIVE, Ur Phencyclidine Scrn NEGATIVE, Ur Amphetamines Screen NEGATIVE, MDMA (Ecstasy) Screen NEGATIVE, U Benzodiazepines Scrn POSITIVE H, Urine Cocaine Screen NEGATIVE, U Cannabinoids Screen NEGATIVE, Ur Drug Screen Comment 10/16/23 12:49: POC Glucose 100 10/16/23 13:47: POC Glucose 77 10/16/23 18:02: POC Glucose 78 10/16/23 20:27: POC Glucose 75 10/17/23 05:54: POC Glucose 112 H ROS Constitutional Constitutional: Denies chills, fatigue, fever(s), poor appetite or weakness Eyes Eyes: Denies blurry vision, change in vision, seeing flashes or spots in vision ENT HEENT: Denies dizziness, headache(s), loss taste/smell or sore throat Cardiovascular Cardiovascular: Denies chest pain, dizziness, dyspnea, irregular heart rhythm, palpitations or rapid heart rate Respiratory/Chest Respiratory/Chest: Denies chest tightness, cough, dyspnea or breast pain Gastrointestinal Gastrointestinal: Denies abdominal pain, constipation or vomiting Genitourinary Genitourinary: Denies dysuria or flank pain Musculoskeletal Musculoskeletal: Denies difficulty walking, joint pain, limited range of motion or numbness Neurologic Neurologic: Denies abnormal movements, abnormal speech, dizziness, numbness, seizure-like activity or syncope Psychiatric Psychiatric: Denies anxiety, behavioral changes, change in appetite, confusion, depression or suicidal thoughts Physical Exam Const alert, oriented x3 and no apparent distress General Appearance: cooperative and comfortable Resp normal respiratory effort Cardio regular rate GI normal to inspection, nondistended, normoactive bowel sounds GI Narrative: uterus is firm below umbilicus Palpation: soft Back/Spine no CVA tenderness and thoraco-lumbar ROM normal Extremity normal to inspection, no clubbing, cyanosis or edema, no calf tenderness and no pedal edema Psych mental status grossly normal, thought process normal, cooperative, affect normal, speech normal, activity/motor behavior normal, denies homicidal ideation and denies suicidal ideation Assessment & Plan (1) Vaginal delivery: COMMENT: SM IOL pree and gdma2 (2) Pre-eclampsia in second trimester: COMMENT: plan iol sunday or earlier if symptoms or severe bps. reveiwed precautions with patient, checking bps at home (3) GDM (gestational diabetes mellitus): QUALIFIERS: Gestational diabetes mellitus control: oral hypoglycemic-controlled Trimester: third trimester Qualified Code(s): O24.415 - Gestational diabetes mellitus in , controlled by oral hypoglycemic drugs COMMENT: nph 10U at night started. increased metformin to bid 1000mg, 2x weekly NSTs. decreased control, may recommend 38 week delivery (4) Depression with anxiety: COMMENT: on zoloft PLAN: Plan s/p PPD # 1 1. routine post delivery care 2. bottle feeding 3. rh positive 4. rubella immune 5. pre-eclampsia- if bp's normal today and tonight will dc to home tomorrow.
[2023-10-17] MEDS: Sertraline 50 MG Tablet 150 MG PO (10:51)
[2023-10-17] MEDS: Acetaminophen 500 MG Tablet 1000 MG PO (14:46)
[2023-10-17] MEDS: Naproxen 500 MG Tablet PO (17:00)
[2023-10-18 03:10] VITALS: BP 121/69; PULSE 63; RESP 16; TEMP 36.9; O2SAT 95
[2023-10-18 03:17] VITALS: BP 121/69; PULSE 62
--- NOTE | 2023-10-18 07:39 | PN.OBGYN_ITS ---
Subjective Subjective Patient doing well without complaints. Tolerating PO. Ambulating and voiding without difficulty. feeding well. Denies chest pain, shortness of breath, calf pain/swelling, fevers, chills, lightheadedness. Objective Data Objective Data Vital Signs: Vital Signs Temp Pulse Resp BP Pulse Ox O2 Del Method 98.5 F 62 16 121/69 H 95 Room Air 10/18/23 03:10 10/18/23 03:17 10/18/23 03:10 10/18/23 03:17 10/18/23 03:10 10/18/23 03:10 Oxygen Delivery Method Room Air Weight: 216 lb 2 oz Body Mass Index (BMI) 37.0 Intake & Output: Intake and Output for Last 24 Hours 10/16/23 10/17/23 10/18/23 23:59 23:59 23:59 Intake Total 3466.42 / 3466.42 0 / 0 Output Total 825 / 925 700 / 700 Balance 2641.42 / 2541.42 -700 / -700 Lab / Micro Data 10/16/23 08:50 ROS Constitutional Constitutional: Reports systems reviewed and no addt'l complaints, except as doc umented Cardiovascular Cardiovascular: Reports systems reviewed and no addt'l complaints, except as documented Respiratory/Chest Respiratory/Chest: Reports systems reviewed and no addt'l complaints, except as documented Gastrointestinal Gastrointestinal: Reports systems reviewed and no addt'l complaints, except as documented Physical Exam Const alert, oriented x3 and no apparent distress HEENT Head and Scalp: atraumatic Resp normal respiratory effort GI soft to palpation and non-tender Bimanual Exam - Vag & Uterus: uterus non-tender Uterus Palpation: uterus fundus firm (below Umbilicus) Assessment & Plan (1) Vaginal delivery: COMMENT: SM IOL pree and gdma2 (2) Pre-eclampsia in second trimester: COMMENT: plan iol sunday or earlier if symptoms or severe bps. reveiwed precautions with patient, checking bps at home (3) GDM (gestational diabetes mellitus): QUALIFIERS: Gestational diabetes mellitus control: oral hypoglycemic-controlled Trimester: third trimester Qualified Code(s): O24.415 - Gestational diabetes mellitus in , controlled by oral hypoglycemic drugs COMMENT: nph 10U at night started. increased metformin to bid 1000mg, 2x weekly NSTs. decreased control, may recommend 38 week delivery (4) Depression with anxiety: COMMENT: on nash PLAN: Plan s/p PPD # 2 1. routine post delivery care 2. breast feeding- support given 3. rh positive 4. rubella immune
[2023-10-18 08:40] VITALS: BP 120/57; PULSE 63; RESP 16; TEMP 36.5; O2SAT 96
[2023-10-18 08:43] VITALS: PULSE 72; O2SAT 97
[2023-10-18 08:44] VITALS: BP 120/57; PULSE 62
--- NOTE | 2023-10-18 09:07 | NURSING ---
Patient passed clot that was a little bigger than a golf ball, fundus is firm 1 below umbilicus. Patient has scant bleeding and denies dizziness/lightheadedness, VS stable. Pt educated and will continue to monitor.
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
== END 2023-10-18 10:00 | disposition home or self-care (01) | DRG 805 ==
PROVIDERS: Admitting Provider Obstetrics & Gynecology; Referring Provider Obstetrics & Gynecology; Visit Provider Obstetrics & Gynecology
DX: O24.425 Gestational diabetes mellitus in childbirth, controlled by oral hypoglycemic drugs (principal); Z37.0 Single live birth; O60.14X0 Preterm labor third trimester with preterm delivery third trimester, not applicable or unspecified; F41.8 Other specified anxiety disorders; O99.344 Other mental disorders complicating childbirth; O12.14 Gestational proteinuria, complicating childbirth; O69.81X0 Labor and delivery complicated by cord around neck, without compression, not applicable or unspecified; O43.193 Other malformation of placenta, third trimester; Z87.51 Personal history of pre-term labor; Z87.891 Personal history of nicotine dependence; Z3A.36 36 weeks gestation of pregnancy
CPT/HCPCS: 59025; 59050; 80307; 82962; 85025; 86780; 86850; 86900; 86901; 99221; J7120; A4216; G0378; J2405

== ENCOUNTER 2023-10-20 12:36 | Inpatient (IN) | payer BC, SELFPAY ==
[2023-10-20] VITALS (111 sets, daily range): BP systolic 118–183; BP diastolic 67–95; PULSE 48–112; RESP 14–18; TEMP 36.2–37; O2SAT 83–100; BMI 35.9
[2023-10-20] MEDS: Magnesium Sulfate 4gm/100mL 4 GM/100 ML IV.SOLN. IV (10:42)
[2023-10-20 10:44] LABS: Hematocrit 33.4 % (37-47); Hemoglobin 10.6 g/dL (12.0-15.0); Mean Corp Hgb Conc 31.7 g/dL (32-36); Mean Corpuscular Hgb 28.4 pg (27.0-32.0); Mean Corpuscular Volume 89.5 fL (81-99); Mean Platelet Vol. 10.4 fl (6.2-12.0); Platelet Count 257 K/mm3 (150-450); RBC Distribution Width SD 42.4 fl (35.1-43.9); Red Blood Count 3.73 M/mm3 (4.2-5.4); White Blood Count 7.9 K/mm3 (4.4-11.0)
[2023-10-20 10:55] LABS: Fibrinogen 363 mg/dl (203-444)
[2023-10-20 10:58] LABS: AST(SGOT) 384 U/L (15-37); Alanine Aminotransfer ALT/SGPT 391 U/L (13-56); Creatinine, Serum 0.61 mg/dL (0.55-1.02); EST Glomerular Filtration Rate 115 mL/min (>60); Est Glom Filt Rate - Afr Amer 139 mL/min (>60); Estimated Creatinine Clearance 138.43 ml/min; Uric Acid 4.9 mg/dL (2.6-6.0)
[2023-10-20] MEDS: Lactated Ringers 1,000 ML 30 ML IV (11:00)
[2023-10-20] MEDS: NIFEdipine 30 MG Tablet PO (11:07)
[2023-10-20] MEDS: Magnesium Sulfate 20 GM/500 ML BAG IV ×2 (11:10→20:17)
--- NOTE | 2023-10-20 11:52 | HP.PCM.OB_ITS ---
HPI - General HPI Narrative JULIANNE ONEAL, is a 38 F who presents with headache, blurry vision and severely elevated bps, severe preeclampsia . no RUQ pain, bps at home were starting to rise and swelling increasing since yesterday Maternal Data Information QI Calculator Estimated Delivery Date Method Current WG Current Estimate 11/04/23 Ultrasound #1 37w 6d Other Estimates 11/12/23 LMP (Certain) 36w 5d PFSH PFSH Medical History Abnormal Pap smear of cervix Asthma Depression with anxiety Encounter for IUD removal FH: Down syndrome Gestational diabetes Heartburn History of pre-term labor Insomnia Pap smear for cervical cancer screening Preeclampsia Home Medications multivitamin no.47-iron fum 27 mg-folate no.1 1 mg-dha 300 mg capsule (PNV-DHA) 1 cap PO DAILY Check with primary doctor 06/22/20 [History Last Taken 10/16/23] doxylamine succinate 25 mg tablet (Unisom (doxylamine)) 5 mg PO QHS PRN sleep 04/05/23 [History Last Taken 10/19/23] omeprazole magnesium 20 mg tablet,delayed release (Prilosec OTC) 20 mg PO DAILY heartburn 04/05/23 [History Last Taken 10/19/23] sertraline 100 mg tablet 150 mg (1.5 x 100 mg) PO DAILY depression 30 days #45 tabs 08/02/23 [Rx Last Taken 10/20/23] Allergy/AdvReac Type Severity Reaction Status Date / Time carboprost [From Hemabate] Allergy Vomiting Verified 10/20/23 09:49 codeine AdvReac Nausea Verified 10/20/23 09:49 morphine AdvReac Nausea Verified 10/20/23 09:49 Family History Mother Hypertension Narcolepsy Aunt Thyroid cancer Breast cancer, Onset Age: 50 maternal Grandmother Thyroid cancer Brother Trisomy 21 Other Cancer Surgical History H/O toe surgery Social History adopted: No household members: family housing: house number of children: 2 current occupational status: unemployed current occupation: SAHM pets and animals: Yes pets and animals: cat(s) and dog(s) history of recent travel: No sexually active: Yes Smoking Status: Former smoker second hand exposure: No alcohol intake: never substance use type: does not use caffeine: Yes Type: carbonated beverages Number of servings: 5 and coffee Number of servings: 1 what type of physical activity do you participate in: walking and bicycling frequency: 3-4 times per week seatbelt use: always do you feel safe at home: Yes additional social history: [employer] 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 Date Name GA/Weeks Outcome Route Bth Weight Gen Labor Lgth Anesthesia Del Locatn Provider FOB Unknown Peace-2003 33 live - 4lbs 15oz Fema le epidural [facility] Unknown Robin-2004 39 live - full term 6lbs 7oz Male 2 hours epidural [facility] Dr. Caterina Piedra Ana-2006 39 live - full term 7lbs 6.5oz Fem annamaria 7-8hours epidural [facility] Dr. Diggs/Dr. Beasley 01/18/21 Brayedn 37 live - full term Male [facility] Dr. Velasco Delivery Date: Last Updated by: Melisa Das hospitalized for 3 weeks until delivered at 33 weeks; NICU x1 week; placenta broke apart after delivery; tore on her cervix per patient Delivery Date: Last Updated by: Melisa Das no complications Delivery Date: Last Updated by: Melisa Das decrease FHR- nuchal cord Delivery Date: 01/18/21 Last Updated by: Marissa Barrera COVID, Gestational diabetes, Preeclampsia Visit Details Expected Delivery Route/Plan Labor Preferences- CB/BF classes: [] labor support person: [] labor intervention preferences: [] pain management options preferred: [] cut cord/dad catch: [] : [] PP control planned: [] discussed possible routes of delivery and associated risks: [] special requests: [] Plans Covid status: declined Flu vaccine: given Tdap vaccine: [] Rhogam: [] LARC form signed: [] Problem list reviewed and updated with the most current plan of care details and appropriate orders placed. Relevant counseling for the gestational age provided. Continue routine care and follow up unless otherwise noted in visit notes/problem list details OB Flowsheet Initial Weight: Not Recorded Date -?-?-?-?-?-?-?-?-?-?-?-?- EGA Weight BP Urine Prot -?-?-?-?-?-?-?-?-?-?-?-?- Glucose FHR FuHt Pres Dilation -?-?-?-?-?-?-?-?-?-?-?-?- Effaced St Visit Note 04/05/23 -?-?-?-?-?-?-?-?-?-?-?-?- 9w 4d 186 lb 2 oz 113/78 -?-?-?-?-?-?-?-?-?-?-?-?- 180 -?-?-?-?-?-?-?-?-?-?-?-?- Sm- CRL 2.45cm N OT cons with LMP 04/30/23 -?-?-?-?-?-?-?-?-?-?-?-?- 13w 1d 186 lb 6 oz 118/78 -?-?-?-?-?-?-?-?-?-?-?-?- 160 -?-?-?-?-?-?-?-?-?-?-?-?- SM- no vb crampi ng 05/28/23 -?-?-?-?-?-?-?-?-?-?-?-?- 17w 1d 196 lb 123/80 Negative -?-?-?-?-?-?-?-?--?-?-?-?- Negative 150 -?-?-?-?-?-?-?-?-?-?-?-?- SM- no vb occasi onal cramping, feeling better 07/06/23 -?-?-?-?-?-?-?-?-?-?-?-?- 22w 5d 202 lb 2 oz 125/73 Nega tive -?-?-?-?-?-?-?-?-?-?-?-?- Negative 150 -?-?-?-?-?-?-?-?-?-?-?-?- SM- no vb lof cr amping good fm 08/02/23 -?-?-?-?-?-?-?-?-?-?-?-?- 26w 4d 209 lb 119/79 Negative -?-?-?-?-?-?-?-?-?-?-?-?- Negative 150 26 -?-?-?-?-?-?-?-?-?-?-?-?- SM- no vb occasi onal stephen parr no lof good fm increassed zoloft 09/07/23 -?-?-?-?-?-?-?-?-?-?-?-?- 31w 5d 214 lb 214 lb 111/76 111/76 Negative -?-?-?-?-?-?-?-?-?-?-?-?- Negative 145 32 -?-?-?-?-?-?-?-?-?-?-?-?- Sm- no vb lof go od fm no regular ctx reviewed BS recommend starting medication- chose metformin, start at night, only FBS elevated mainly 09/12/23 -?-?-?-?-?-?-?-?-?-?-?-?- 32w 3d 215 lb 116/77 1+ -?-?-?-?-?-?-?-?-?-?-?-?- Negative 140 0 -?-?-?-?-?-?-?-?-?-?-?-?- -4 MH-NST r eactive. Headache but very congested. [place] discharge and more pressure. See UA result, pre E labs 09/14/23 -?-?-?-?-?-?-?-?-?-?-?-?- 32w 5d 214 lb 107/72 Negative -?-?-?-?-?-?-?-?-?-?-?-?- Negative 140 -?-?-?-?-?-?-?-?-?-?-?-?- SM- no vb lof go od fm no reg ctx 09/19/23 -?-?-?-?-?-?--?-?-?-?-?-?- 33w 3d 218 lb 126/81 -?-?-?-?-?-?-?-?-?-?-?-?- 130 34 -?-?-?-?-?-?-?-?-?-?-?-?- JV- nst reactive . plan for labs again today. plan for growth scan soon. She had to cancel due to vomiting. JV- nst reactive. plan for l abs again today. plan for growth scan soon. She had to cancel due to vomiting. nurse dumped urine before able to send prot:cr. if does not do in lab today will rpt on sunday09/21/23 -?-?-?-?-?-?-?-?-?-?-?-?- 33w 5d 215 lb 124/80 Negative -?-?-?-?-?-?-?-?-?-?-?-?- Negative 135 34 -?-?-?-?-?-?-?-?-?-?-?-?- KW- NST reactive . no vb/lof/ctx. growth US on sunday. PC ratio today. no STOCK/dizziness/BV. 09/24/23 -?-?-?--?-?-?-?-?-?-?-?-?- 34w 1d 214 lb 4 oz 122/77 Nega tive -?-?-?-?-?-?-?-?-?-?-?-?- Negative 130 -?-?-?-?-?-?-?-?-?-?-?-?- JV- NST reactive . growth scan is later today. eager to hear about results. 09/27/23 -?-?-?-?-?-?-?-?-?-?-?-?- 34w 4d 217 lb 4 oz 127/85 Nega tive -?-?-?-?-?-?-?-?-?-?-?-?- Negative 125 -?-?-?-?-?-?-?-?-?-?-?-?- KW-NST reactive. 84% SHIMON normal. 10/03/23 -?-?-?-?-?-?-?-?-?-?-?-?- 35w 3d 216 lb 6 oz 136/90 120/86 1+ -?-?-?-?-?-?-?-?-?-?-?-?- 130 36 -?-?-?-?-?-?-?-?-?-?-?-?- JV- reactive cat 1 nst. fasting levels are creeping up. increase metformin to bid and 1000 at night. weekly pih labs. 10/05/23 -?-?-?-?-?-?-?-?-?-?-?-?- 35w 5d 221 lb 4 oz 124/82 -?-?-?-?-?-?-?-?-?-?-?-?- -?-?-?-?-?-?-?-?-?-?-?-?- SM- no vb crampdavid ng, reviewed preeclampsia precautions, has gained 5 lbs in 2 days, suspect fluid retention, will watch bps at home, reiewed pree precautions. consider IOL at 37-38 depending on preeclampsia or uncontrolled diabetes. 10/09/23 -?-?-?-?-?-?-?-?-?-?-?-?- 36w 2d 217 lb 4 oz 136/83 136/83 Negative -?-?-?-?-?-?-?-?-?-?-?-?- Negative 140 -?-?-?-?-?-?-?-?-?-?-?-?- SM- labs ordered , no vb lof good fm BS not controlled, ordered nph 10U to start at night 10/12/23 -?-?-?-?-?-?-?-?-?-?-?-?- 36w 5d 218 lb 144/88 Negative -?-?-?-?-?-?-?-?-?-?-?-?- Negative 140 -?-?-?-?-?-?-?-?-?-?-?-?- SM- no vb lof go od fm no regular ctx discussed insulin adminstration- wa snot giving correctly likely will review with pharmacy. ROS Constitutional Constitutional: Reports systems reviewed and no addt'l complaints, except as documented; Denies as per HPI, change in weight, fatigue, fever(s), malaise, weakness or other Eyes Eyes: Reports systems reviewed and no addt'l complaints, except as documented; Denies as per HPI, change in vision or other ENT HEENT: Reports systems reviewed and no addt'l complaints, except as documented Respiratory/Chest Respiratory/Chest: Reports systems reviewed and no addt'l complaints, except as documented Gastrointestinal Gastrointestinal: Reports systems reviewed and no addt'l complaints, except as documented and as per HPI Genitourinary Genitourinary: Reports as per HPI Musculoskeletal Musculoskeletal: Reports systems reviewed and no addt'l complaints, except as documented Neurologic Neurologic: Reports systems reviewed and no addt'l complaints, except as do cumented Psychiatric Psychiatric: Reports systems reviewed and no addt'l complaints, except as documented Endocrine Endocrinology: Reports systems reviewed and no addt'l complaints, except as documented Hematologic/Lymphatic Hematologic/Lymphatic: Reports systems reviewed and no addt'l complaints, except as documented Vital Signs Vital Signs Vital Signs: 10/20/23 09:37 10/20/23 09:37 10/20/23 09:41 Temperature Temperature Source Temporal Pulse Rate 49 L Respiratory Rate Respiratory Effort Respiratory Depth Respiratory Pattern Blood Pressure 183/91 H Blood Pressure Mean BP Systolic 183 BP Diastolic 91 Blood Pressure Source Blood Pressure Position Blood Pressure Location Pulse Ox Oxygen Delivery Method 10/20/23 09:41 10/20/23 09:41 10/20/23 09:43 Temperature 98.5 F Temperature Source Pulse Rate 50 L Respiratory Rate 14 Respiratory Effort Respiratory Depth Respiratory Pattern Blood Pressure Blood Pressure Mean BP Systolic BP Diastolic Blood Pressure Source Blood Pressure Position Blood Pressure Location Pulse Ox Oxygen Delivery Method 10/20/23 09:43 10/20/23 09:48 10/20/23 09:48 Temperature Temperature Source Pulse Rate 49 L Respiratory Rate Respiratory Effort Respiratory Depth Respiratory Pattern Blood Pressure 170/87 H Blood Pressure Mean BP Systolic 170 BP Diastolic 87 Blood Pressure Source Blood Pressure Position Blood Pressure Location Pulse Ox 98 Oxygen Delivery Method 10/20/23 09:48 10/20/23 09:53 10/20/23 09:53 Temperature Temperature Source Pulse Rate 49 L Respiratory Rate Respiratory Effort Respiratory Depth Respiratory Pattern Blood Pressure Blood Pressure Mean BP Systolic BP Diastolic Blood Pressure Source Blood Pressure Position Blood Pressure Location Pulse Ox 97 97 Oxygen Delivery Method 10/20/23 09:58 10/20/23 09:58 10/20/23 09:58 Temperature Temperature Source Pulse Rate 48 L Respiratory Rate Respiratory Effort Respiratory Depth Respiratory Pattern Blood Pressure 166/86 H Blood Pressure Mean BP Systolic 166 BP Diastolic 86 Blood Pressure Source Blood Pressure Position Blood Pressure Location Pulse Ox 97 Oxygen Delivery Method 10/20/23 10:03 10/20/23 10:03 10/20/23 10:08 Temperature Temperature Source Pulse Rate 49 L Respiratory Rate Respiratory Effort Respiratory Depth Respiratory Pattern Blood Pressure 173/95 H Blood Pressure Mean BP Systolic 173 BP Diastolic 95 Blood Pressure Source Blood Pressure Position Blood Pressure Location Pulse Ox 98 Oxygen Delivery Method 10/20/23 10:08 10/20/23 10:09 10/20/23 10:11 Temperature Temperature Source Pulse Rate 51 L 49 L Respiratory Rate Respiratory Effort Respiratory Depth Respiratory Pattern Blood Pressure Blood Pressure Mean BP Systolic BP Diastolic Blood Pressure Source Blood Pressure Position Blood Pressure Location Pulse Ox 84 Oxygen Delivery Method 10/20/23 10:11 10/20/23 10:16 10/20/23 10:16 Temperature Temperature Source Pulse Rate 57 L Respiratory Rate Respiratory Effort Respiratory Depth Respiratory Pattern Blood Pressure Blood Pressure Mean BP Systolic BP Diastolic Blood Pressure Source Blood Pressure Position Blood Pressure Location Pulse Ox 98 97 Oxygen Delivery Method 10/20/23 10:21 10/20/23 10:21 10/20/23 10:26 Temperature Temperature Source Pulse Rate 62 51 L Respiratory Rate Respiratory Effort Respiratory Depth Respiratory Pattern Blood Pressure Blood Pressure Mean BP Systolic BP Diastolic Blood Pressure Source Blood Pressure Position Blood Pressure Location Pulse Ox 96 Oxygen Delivery Method 10/20/23 10:26 10/20/23 10:31 10/20/23 10:31 Temperature Temperature Source Pulse Rate 58 L Respiratory Rate Respiratory Effort Respiratory Depth Respiratory Pattern Blood Pressure Blood Pressure Mean BP Systolic BP Diastolic Blood Pressure Source Blood Pressure Position Blood Pressure Location Pulse Ox 96 97 Oxygen Delivery Method 10/20/23 10:32 10/20/23 10:32 10/20/23 10:36 Temperature Temperature Source Pulse Rate 63 56 L Respiratory Rate Respiratory Effort Respiratory Depth Respiratory Pattern Blood Pressure Blood Pressure Mean BP Systolic BP Diastolic Blood Pressure Source Blood Pressure Position Blood Pressure Location Pulse Ox 92 Oxygen Delivery Method 10/20/23 10:36 10/20/23 10:40 10/20/23 10:40 Temperature Temperature Source Pulse Rate 52 L Respiratory Rate Respiratory Effort Respiratory Depth Respiratory Pattern Blood Pressure 178/90 H Blood Pressure Mean BP Systolic 178 BP Diastolic 90 Blood Pressure Source Blood Pressure Position Blood Pressure Location Pulse Ox 95 Oxygen Delivery Method 10/20/23 10:41 10/20/23 10:41 10/20/23 10:46 Temperature Temperature Source Pulse Rate 55 L 58 L Respiratory Rate Respiratory Effort Respiratory Depth Respiratory Pattern Blood Pressure Blood Pressure Mean BP Systolic BP Diastolic Blood Pressure Source Blood Pressure Position Blood Pressure Location Pulse Ox 97 Oxygen Delivery Method 10/20/23 10:46 10/20/23 10:48 10/20/23 10:48 Temperature Temperature Source Pulse Rate 54 L Respiratory Rate Respiratory Effort Respiratory Depth Respiratory Pattern Blood Pressure 155/74 H Blood Pressure Mean BP Systolic 155 BP Diastolic 74 Blood Pressure Source Blood Pressure Position Blood Pressure Location Pulse Ox 97 Oxygen Delivery Method 10/20/23 10:49 10/20/23 10:49 10/20/23 10:51 Temperature Temperature Source Pulse Rate 61 58 L Respiratory Rate Respiratory Effort Respiratory Depth Respiratory Pattern Blood Pressure Blood Pressure Mean BP Systolic BP Diastolic Blood Pressure Source Blood Pressure Position Blood Pressure Location Pulse Ox 94 Oxygen Delivery Method 10/20/23 10:51 10/20/23 10:42 10/20/23 10:56 Temperature Temperature Source Temporal Pulse Rate 57 L Respiratory Rate Respiratory Effort Respiratory Depth Respiratory Pattern Blood Pressure Blood Pressure Mean BP Systolic BP Diastolic Blood Pressure Source Blood Pressure Position Blood Pressure Location Pulse Ox 94 Oxygen Delivery Method 10/20/23 10:56 10/20/23 10:56 10/20/23 10:56 Temperature Temperature Source Pulse Rate 56 L Respiratory Rate Respiratory Effort Respiratory Depth Respiratory Pattern Blood Pressure 135/67 H Blood Pressure Mean BP Systolic 135 BP Diastolic 67 Blood Pressure Source Blood Pressure Position Blood Pressure Location Pulse Ox 95 Oxygen Delivery Method 10/20/23 10:58 10/20/23 10:58 10/20/23 11:01 Temperature Temperature Source Pulse Rate 59 L 58 L Respiratory Rate Respiratory Effort Respiratory Depth Respiratory Pattern Blood Pressure 136/74 H Blood Pressure Mean BP Systolic 136 BP Diastolic 74 Blood Pressure Source Blood Pressure Position Blood Pressure Location Pulse Ox Oxygen Delivery Method 10/20/23 11:01 10/20/23 11:03 10/20/23 11:03 Temperature Temperature Source Pulse Rate 56 L Respiratory Rate Respiratory Effort Respiratory Depth Respiratory Pattern Blood Pressure Blood Pressure Mean BP Systolic BP Diastolic Blood Pressure Source Blood Pressure Position Blood Pressure Location Pulse Ox 95 94 Oxygen Delivery Method 10/20/23 11:06 10/20/23 11:06 10/20/23 11:08 Temperature Temperature Source Pulse Rate 55 L Respiratory Rate Respiratory Effort Respiratory Depth Respiratory Pattern Blood Pressure 142/81 H Blood Pressure Mean BP Systolic 142 BP Diastolic 81 Blood Pressure Source Blood Pressure Position Blood Pressure Location Pulse Ox 95 Oxygen Delivery Method 10/20/23 11:08 10/20/23 11:12 10/20/23 11:18 Temperature Temperature Source Pulse Rate 56 L Respiratory Rate Respiratory Effort Respiratory Depth Respiratory Pattern Blood Pressure 152/87 H Blood Pressure Mean BP Systolic 152 BP Diastolic 87 Blood Pressure Source Blood Pressure Position Blood Pressure Location Pulse Ox 84 Oxygen Delivery Method 10/20/23 11:18 10/20/23 11:18 10/20/23 11:18 Temperature Temperature Source Pulse Rate 56 L 112 H Respiratory Rate Respiratory Effort Respiratory Depth Respiratory Pattern Blood Pressure Blood Pressure Mean BP Systolic BP Diastolic Blood Pressure Source Blood Pressure Position Blood Pressure Location Pulse Ox 84 Oxygen Delivery Method 10/20/23 11:19 10/20/23 11:19 10/20/23 11:24 Temperature Temperature Source Pulse Rate 60 55 L Respiratory Rate Respiratory Effort Respiratory Depth Respiratory Pattern Blood Pressure Blood Pressure Mean BP Systolic BP Diastolic Blood Pressure Source Blood Pressure Position Blood Pressure Location Pulse Ox 97 Oxygen Delivery Method 10/20/23 11:24 10/20/23 11:28 10/20/23 11:28 Temperature Temperature Source Pulse Rate 51 L Respiratory Rate Respiratory Effort Respiratory Depth Respiratory Pattern Blood Pressure 154/82 H Blood Pressure Mean BP Systolic 154 BP Diastolic 82 Blood Pressure Source Blood Pressure Position Blood Pressure Location Pulse Ox 96 Oxygen Delivery Method 10/20/23 10:42 10/20/23 11:20 10/20/23 11:27 Temperature 98.6 F Temperature Source Temporal Pulse Rate 57 L 58 L 55 L Respiratory Rate 14 14 14 Respiratory Effort Normal Non-Labored Normal Non-Labored Respiratory Depth Normal Normal Respiratory Pattern Normal Normal Blood Pressure 178/90 H 152/87 H 154/82 H Blood Pressure Mean 119 108 106 BP Systolic BP Diastolic Blood Pressure Source Monitor Monitor Monitor Blood Pressure Position Semi-Fowlers Semi-Fowlers Semi-Fowlers Blood Pressure Location Left Arm Right Arm Right Arm Pulse Ox 95 96 96 Oxygen Delivery Method Room Air Room Air Room Air Weight Weight: 209 lb 7.026 oz Body Mass Index (BMI) 35.9 Physical Exam Const alert, oriented x3 and no apparent distress HEENT normocephalic Head and Scalp: atraumatic Eyes EOMs intact bilaterally and conjunctivae normal Neck full ROM, no lymphadenopathy, supple and thyroid normal General: trachea midline Lymph Lymphatic: no lymphadenopathy noted Resp normal respiratory effort, no retractions, no use of accessory muscles and clear to auscultation bilaterally Cardio regular rhythm GI normal to inspection, nondistended, normoactive bowel sounds, soft to palpation, non-distended and no masses Inspection: Negative for abdominal distention Back/Spine no CVA tenderness Extremity normal to inspection Skin no rashes or lesions noted Neuro moves all extremities and deep tendon reflexes 2+ bilaterally Psych mental status grossly normal Labs Labs Labs: Blood Type A POSITIVE Antibody Screen NEGATIVE Hct 33.4 % (37-47) L Hgb 10.6 g/dL (12.0-15.0) L Pap Smear Negative Obstetrics Ultrasound Syphilis Total Ab Non-reactive Rubella IgG Antibody Reactive (Nonreactive) Hep Bs Antigen Non-Reactive (Nonreactive) Hepatitis C Antibody Non-Reactive (Nonreactive) Chlamydia DNA (RUDY) Negative (Negative) N.gonorrhoeae DNA (RUDY) Negative (Negative) HIV 1&2 Antibody Non-Reactive (Nonreactive) Glucose 1 Hr 50 gm 265 mg/dL (70-140) H Miscellaneous Test Assessment & Plan (1) Vaginal delivery: COMMENT: SM IOL pree and gdma2 (2) Pre-eclampsia in second trimester: COMMENT: plan iol sunday or earlier if symptoms or severe bps. reveiwed precautions with patient, checking bps at home (3) GDM (gestational diabetes mellitus): QUALIFIERS: Gestational diabetes mellitus control: oral hypoglycemic-controlled Trimester: third trimester Qualified Code(s): O24.415 - Gestational diabetes mellitus in , controlled by oral hypoglycemic drugs COMMENT: nph 10U at night started. increased metformin to bid 1000mg, 2x weekly NSTs. decreased control, may recommend 38 week delivery (4) Depression with anxiety: COMMENT: on zoloft (5) Pre-eclampsia, severe, condition: PLAN: Plan admits magnesium sulfate IV, monitor serial labs, procardia given to maintain bps. monitor is/os. scds.
[2023-10-20] MEDS: NIFEdipine 10 MG Capsule PO (12:02)
[2023-10-20 13:04] LABS: Bedside Glucose 79 mg/dL (74-106)
[2023-10-20 16:02] LABS: ALB/GLOB Ratio 0.6 RATIO (0.9-2.4); AST(SGOT) 484 U/L (15-37); Alanine Aminotransfer ALT/SGPT 492 U/L (13-56); Albumin, Serum 2.3 g/dL (3.2-5.0); Alkaline Phosphatase 199 U/L (45-117); Anion Gap 7 (5-15); BUN 11 mg/dL (7-18); BUN/Creat Ratio 17.8 RATIO (10-20); Calcium,Total 7.8 mg/dL (8.5-10.1); Chloride 105 mmol/L (98-107); Creatinine, Serum 0.62 mg/dL (0.55-1.02); EST Glomerular Filtration Rate 114 mL/min (>60); Est Glom Filt Rate - Afr Amer 138 mL/min (>60); Glucose 137 mg/dL (74-106); Potassium 3.6 mmol/L (3.5-5.1); Protein, Total 6.3 g/dL (6.4-8.2); Sodium Level 140 mmol/L (136-145)
--- NOTE | 2023-10-20 16:30 | CT_ITS ---
STUDY: CT ABDOMEN AND PELVIS WITH CONTRAST REASON FOR EXAM: Female, 38 years old. High Liver enzymes/Pre-eclampsia RADIATION DOSAGE (If Supplied By Facility): CTDIvol = ( 19.43 ) mGy, DLP = ( 1230.51 ) mGycm TECHNIQUE: Transaxial images were obtained from the dome of the diaphragm to the symphysis pubis without oral contrast. IV 100mL Isovue-370 was administered. Sagittal and coronal images were reconstructed. Individualized dose optimization techniques were used for this CT. COMPARISON: None. FINDINGS: Small bilateral pleural effusions with mild atelectasis in the lung bases. The visualized portions of the heart are within normal limits. Normal liver. Normal gallbladder and extrahepatic biliary system. Normal spleen. Normal pancreas. 2.3 mm intermediate density (Hounsfield units 48) nodule of the left adrenal gland is seen on image 36 of series 2. Right adrenal gland is normal. No hydronephrosis. Nonobstructing left renal calculi. Normal visualized stomach. Normal small intestine. Normal colon. The appendix is visualized and appears normal. Normal abdominal aorta. Normal inferior vena cava. Normal retroperitoneum. Normal urinary bladder. Enlarged, post gravid uterus. No focal fluid collection. Locules of air within the endometrial canal compatible with recent childbirth. Normal abdominal wall. Normal osseous structures. CT/Abdomen/Pelvis W IV Cont ONLY IMPRESSION: 1. No hepatic masses. No biliary dilation. Portal vein is patent. 2. Post gravid uterus. 3. Small volume pleural effusions with lower lobe atelectasis. 4. 2.3 cm indeterminate density left adrenal nodule. ACR White Paper guidelines (cristhian Martin al. JACR 2017; 14(8):4748-4731) suggest a chemical-shift adrenal MRI follow-up study. Electronically Signed: Terry Argueta MD ([place]) at 18:48 EDT Reading Location ID and State: [facility] / [place] , Service support ,
[2023-10-20] MEDS: Acetaminophen 500 MG Tablet 1000 MG PO (17:05)
[2023-10-20 17:13] LABS: Absolute Lymphocyte Count 0.96 X10^3/uL (0.83-4.51); Absolute Neutrophil Count 7.3 X10^3/uL (2.0-7.7); Basophil# 0.04 X10^3/uL; Basophil% 0.5 % (0-1); Eosinophil# 0.05 X10^3/uL; Eosinophils% 0.6 % (0-5); Hematocrit 36.7 % (37-47); Hemoglobin 11.7 g/dL (12.0-15.0); Lymphocyte # 0.96 X10^3/ul (0.83-4.51); Lymphocyte % 10.9 % (19-41); Mean Corp Hgb Conc 31.9 g/dL (32-36); Mean Corpuscular Hgb 28.3 pg (27.0-32.0); Mean Corpuscular Volume 88.9 fL (81-99); Mean Platelet Vol. 10.3 fl (6.2-12.0); Monocyte# 0.47 X10^3/uL; Monocyte% 5.3 % (0-10); NRBC Flagged by Analyzer 0 % (0-5); Neutrophil # 7.27 X10^3/uL (2.7-7.7); Neutrophil % 82.1 % (47-70); Platelet Count 313 K/mm3 (150-450); RBC Distribution Width SD 41.6 fl (35.1-43.9); Red Blood Count 4.13 M/mm3 (4.2-5.4); White Blood Count 8.8 K/mm3 (4.4-11.0)
[2023-10-20 22:22] LABS: Absolute Lymphocyte Count 0.99 X10^3/uL (0.83-4.51); Absolute Neutrophil Count 6.9 X10^3/uL (2.0-7.7); Basophil# 0.03 X10^3/uL; Basophil% 0.3 % (0-1); Eosinophil# 0.13 X10^3/uL; Eosinophils% 1.5 % (0-5); Hematocrit 36.2 % (37-47); Hemoglobin 11.6 g/dL (12.0-15.0); Lymphocyte # 0.99 X10^3/ul (0.83-4.51); Lymphocyte % 11.4 % (19-41); Mean Corpuscular Hgb 28.4 pg (27.0-32.0); Mean Corpuscular Volume 88.7 fL (81-99); Monocyte# 0.53 X10^3/uL; Monocyte% 6.1 % (0-10); NRBC Flagged by Analyzer 0 % (0-5); Neutrophil # 6.94 X10^3/uL (2.7-7.7); Neutrophil % 80.1 % (47-70); Platelet Count 295 K/mm3 (150-450); RBC Distribution Width CV 13.2 % (11.6-14.6); RBC Distribution Width SD 42.6 fl (35.1-43.9); Red Blood Count 4.08 M/mm3 (4.2-5.4); White Blood Count 8.7 K/mm3 (4.4-11.0)
[2023-10-20 22:38] LABS: ALB/GLOB Ratio 0.6 RATIO (0.9-2.4); AST(SGOT) 477 U/L (15-37); Alanine Aminotransfer ALT/SGPT 574 U/L (13-56); Albumin, Serum 2.6 g/dL (3.2-5.0); Alkaline Phosphatase 204 U/L (45-117); Anion Gap 8 (5-15); BUN 15 mg/dL (7-18); BUN/Creat Ratio 24.1 RATIO (10-20); Calcium,Total 7.4 mg/dL (8.5-10.1); Chloride 106 mmol/L (98-107); Creatinine, Serum 0.62 mg/dL (0.55-1.02); EST Glomerular Filtration Rate 113 mL/min (>60); Est Glom Filt Rate - Afr Amer 137 mL/min (>60); Globulin 4.2 g/dL (2.2-4.2); Glucose 139 mg/dL (74-106); Potassium 3.8 mmol/L (3.5-5.1); Protein, Total 6.8 g/dL (6.4-8.2); Sodium Level 138 mmol/L (136-145)
[2023-10-21] VITALS (17 sets, daily range): BP systolic 100–138; BP diastolic 54–78; PULSE 64–87; RESP 16–18; TEMP 36–36.8; O2SAT 94–99
--- NOTE | 2023-10-21 05:15 | NURSING ---
Lab attempted IV draw x2, plan to send another staff member from lab for draw.
[2023-10-21] MEDS: Magnesium Sulfate 20 GM/500 ML BAG IV (05:16)
[2023-10-21 06:28] LABS: Absolute Lymphocyte Count 0.95 X10^3/uL (0.83-4.51); Absolute Neutrophil Count 6.1 X10^3/uL (2.0-7.7); Basophil# 0.04 X10^3/uL; Basophil% 0.5 % (0-1); Eosinophils% 1.3 % (0-5); Hematocrit 36.8 % (37-47); Hemoglobin 11.6 g/dL (12.0-15.0); Lymphocyte # 0.95 X10^3/ul (0.83-4.51); Lymphocyte % 12.1 % (19-41); Mean Corp Hgb Conc 31.5 g/dL (32-36); Mean Corpuscular Hgb 28.2 pg (27.0-32.0); Mean Corpuscular Volume 89.3 fL (81-99); Mean Platelet Vol. 10.2 fl (6.2-12.0); Monocyte% 7.7 % (0-10); NRBC Flagged by Analyzer 0 % (0-5); Neutrophil # 6.08 X10^3/uL (2.7-7.7); Neutrophil % 77.6 % (47-70); Platelet Count 309 K/mm3 (150-450); RBC Distribution Width CV 13.2 % (11.6-14.6); RBC Distribution Width SD 42.6 fl (35.1-43.9); Red Blood Count 4.12 M/mm3 (4.2-5.4); White Blood Count 7.8 K/mm3 (4.4-11.0)
[2023-10-21] MEDS: Acetaminophen 500 MG Tablet 1000 MG PO (06:33)
[2023-10-21 06:52] LABS: ALB/GLOB Ratio 0.6 RATIO (0.9-2.4); AST(SGOT) 343 U/L (15-37); Alanine Aminotransfer ALT/SGPT 533 U/L (13-56); Albumin, Serum 2.5 g/dL (3.2-5.0); Alkaline Phosphatase 204 U/L (45-117); Anion Gap 5 (5-15); BUN 9 mg/dL (7-18); BUN/Creat Ratio 16.1 RATIO (10-20); Calcium,Total 6.8 mg/dL (8.5-10.1); Chloride 106 mmol/L (98-107); Creatinine, Serum 0.56 mg/dL (0.55-1.02); EST Glomerular Filtration Rate 128 mL/min (>60); Est Glom Filt Rate - Afr Amer 155 mL/min (>60); Estimated Creatinine Clearance 150.79 ml/min; Globulin 4.3 g/dL (2.2-4.2); Glucose 90 mg/dL (74-106); Potassium 3.9 mmol/L (3.5-5.1); Protein, Total 6.8 g/dL (6.4-8.2); Sodium Level 139 mmol/L (136-145)
--- NOTE | 2023-10-21 07:59 | PN.OBGYN_ITS ---
Subjective Subjective patient feeling better todya no C PSOB N V diuresing well mild intermittent STOCK- treating with tylenol now. Objective Data Objective Data Vital Signs: Vital Signs Temp Pulse Resp BP Pulse Ox O2 Del Method 97.9 F 65 18 134/76 H 98 Room Air 10/21/23 07:38 10/21/23 07:38 10/21/23 07:38 10/21/23 07:38 10/21/23 07:38 10/21/23 07:38 Oxygen Delivery Method Room Air Weight: 209 lb 7.026 oz Body Mass Index (BMI) 35.9 Intake & Output: Intake and Output for Last 24 Hours 10/19/23 10/20/23 10/21/23 23:59 23:59 23:59 Intake Total 1130.83 / 1130.83 1493.84 / 1493.84 Output Total 5602 / 5602 1999 Balance -4471.17 / -4471.17 -506.16 / -506.16 Lab / Micro Data 10/21/23 06:20 10/21/23 06:20 Labs: Laboratory Results - last 24 hr 10/20/23 10:34: WBC 7.9, RBC 3.73 L, Hgb 10.6 L, Hct 33.4 L, MCV 89.5, MCH 28.4, MCHC 31.7 L, RDW Std Deviation 42.4, RDW Coeff of Krys 13.0, Plt Count 257, MPV 10.4, Fibrinogen 363, Creatinine 0.61, Estim Creat Clear Calc 138.43, Est GFR (MDRD) Af Amer 139, Est GFR (MDRD) Non-Af 115, Uric Acid 4.9, AST 384 H, ALT 391 H 10/20/23 12:39: POC Glucose 79 10/20/23 15:36: Sodium 140, Potassium 3.6, Chloride 105, Carbon Dioxide 28.0, Anion Gap 7, BUN 11, Creatinine 0.62, Estim Creat Clear Calc 136.20, Est GFR (MDRD) Af Amer 138, Est GFR (MDRD) Non-Af 114, BUN/Creatinine Ratio 17.8, Glucose 137 H, Calcium 7.8 L, Total Bilirubin 0.40, AST 484 H, ALT 492 H, Alkaline Phosphatase 199 H, Total Protein 6.3 L, Albumin 2.3 L, Globulin 4.0, Albumin/Globulin Ratio 0.6 L 10/20/23 17:05: WBC 8.8, RBC 4.13 L, Hgb 11.7 L, Hct 36.7 L, MCV 88.9, MCH 28.3, MCHC 31.9 L, RDW Std Deviation 41.6, RDW Coeff of Krys 13.0, Plt Count 313, MPV 10.3, Immature Gran % (Auto) 0.600, Neut % (Auto) 82.1 H, Lymph % (Auto) 10.9 L, [place] % (Auto) 5.3, Eos % (Auto) 0.6, Baso % (Auto) 0.5, Absolute Neuts (auto) 7.3, Absolute Lymphs (auto) 0.96, Nucleated RBC % 0 10/20/23 22:15: WBC 8.7, RBC 4.08 L, Hgb 11.6 L, Hct 36.2 L, MCV 88.7, MCH 28.4, MCHC 32.0, RDW Std Deviation 42.6, RDW Coeff of Krys 13.2, Plt Count 295, MPV 1 0.0, Immature Gran % (Auto) 0.600, Neut % (Auto) 80.1 H, Lymph % (Auto) 11.4 L, [place] % (Auto) 6.1, Eos % (Auto) 1.5, Baso % (Auto) 0.3, Absolute Neuts (auto) 6.9, Absolute Lymphs (auto) 0.99, Nucleated RBC % 0, Sodium 138, Potassium 3.8, Chloride 106, Carbon Dioxide 24.0, Anion Gap 8, BUN 15, Creatinine 0.62, Estim Creat Clear Calc 136.20, Est GFR (MDRD) Af Amer 137, Est GFR (MDRD) Non-Af 113, BUN/Creatinine Ratio 24.1 H, Glucose 139 H, Calcium 7.4 L, Total Bilirubin 0.30, AST 477 H, ALT 574 H, Alkaline Phosphatase 204 H, Total Protein 6.8, Albumin 2.6 L, Globulin 4.2, Albumin/Globulin Ratio 0.6 L 10/21/23 06:20: WBC 7.8, RBC 4.12 L, Hgb 11.6 L, Hct 36.8 L, MCV 89.3, MCH 28.2, MCHC 31.5 L, RDW Std Deviation 42.6, RDW Coeff of Krys 13.2, Plt Count 309, MPV 10.2, Immature Gran % (Auto) 0.800, Neut % (Auto) 77.6 H, Lymph % (Auto) 12.1 L, [place] % (Auto) 7.7, Eos % (Auto) 1.3, Baso % (Auto) 0.5, Absolute Neuts (auto) 6.1, Absolute Lymphs (auto) 0.95, Nucleated RBC % 0, Sodium 139, Potassium 3.9, Chloride 106, Carbon Dioxide 28.0, Anion Gap 5, BUN 9, Creatinine 0.56, Estim Creat Clear Calc 150.79, Est GFR (MDRD) Af Amer 155, Est GFR (MDRD) Non-Af 128, BUN/Creatinine Ratio 16.1, Glucose 90, Calcium 6.8 L, Total Bilirubin 0.30, AST 343 H, ALT 533 H, Alkaline Phosphatase 204 H, Total Protein 6.8, Albumin 2.5 L, Globulin 4.3 H, Albumin/Globulin Ratio 0.6 L Radiography Diagnostic Testing: Radiology Impression Abdomen/Pelvis CT 10/20/23 16:30 IMPRESSION: 1. No hepatic masses. No biliary dilation. Portal vein is patent. 2. Post gravid uterus. 3. Small volume pleural effusions with lower lobe atelectasis. 4. 2.3 cm indeterminate density left adrenal nodule. ACR White Paper guidelines (Veronica et al. JACR 2017; 14(8):8400-7236) suggest a chemical-shift adrenal MRI follow-up study. Electronically Signed: Terry Argueta MD ([place]) at 18:48 EDT Reading Location ID and State: [facility] / [place] , Service support , ROS Constitutional Constitutional: Reports systems reviewed and no addt'l complaints, except as documented; Denies as per HPI, change in weight, fatigue, fever(s), malaise, weakness or other Eyes Eyes: Reports systems reviewed and no addt'l complaints, except as documented; Denies as per HPI, change in vision or other ENT HEENT: Reports systems reviewed and no addt'l complaints, except as documented Respiratory/Chest Respiratory/Chest: Reports systems reviewed and no addt'l complaints, except as documented Gastrointestinal Gastrointestinal: Reports systems reviewed and no addt'l complaints, except as documented and as per HPI Genitourinary Genitourinary: Reports as per HPI Musculoskeletal Musculoskeletal: Reports systems reviewed and no addt'l complaints, except as documented Neurologic Neurologic: Reports systems reviewed and no addt'l complaints, except as documented Psychiatric Psychiatric: Reports systems reviewed and no addt'l complaints, except as documented Endocrine Endocrinology: Reports systems reviewed and no addt'l complaints, except as documented Hematologic/Lymphatic Hematologic/Lymphatic: Reports systems reviewed and no addt'l complaints, except as documented Physical Exam Const alert, oriented x3 and no apparent distress HEENT normocephalic Eyes EOMs intact bilaterally and conjunctivae normal Resp normal respiratory effort, no retractions, no use of accessory muscles and clear to auscultation bilaterally GI normal to inspection, nondistended, normoactive bowel sounds, soft to palpation, non-distended and no masses Inspection: Negative for abdominal distention Extremity normal to inspection Extremity Narrative: no clonus Skin no rashes or lesions noted Neuro moves all extremities and deep tendon reflexes 2+ bilaterally Psych mental status grossly normal Assessment & Plan (1) Vaginal delivery: COMMENT: SM IOL pree and gdma2 (2) Pre-eclampsia in second trimester: COMMENT: severe postpatum readmit (3) GDM (gestational diabetes mellitus): QUALIFIERS: Gestational diabetes mellitus control: oral hypoglycemic-controlled Trimester: third trimester Qualified Code(s): O24.415 - Gestational diabetes mellitus in , controlled by oral hypoglycemic drugs COMMENT: nph 10U at night started. increased metformin to bid 1000mg, 2x weekly NSTs. decreased control, may recommend 38 week delivery (4) Depression with anxiety: COMMENT: on zoloft (5) Pre-eclampsia, severe, condition: COMMENT: readmit PPD3 elevated liver enzymes, given magnesium, started on procardia PLAN: Plan discontinue magnesium sulfate IV, monitor serial labs, procardia given to maintain bps. scds. dc home this afternoon if stable, close OP follow up
[2023-10-21] MEDS: NIFEdipine 30 MG Tablet PO (10:15)
[2023-10-21] MEDS: Sertraline 100 MG Tablet 150 MG PO (10:15)
[2023-10-21 12:56] LABS: Absolute Lymphocyte Count 0.89 X10^3/uL (0.83-4.51); Absolute Neutrophil Count 6.6 X10^3/uL (2.0-7.7); Basophil# 0.03 X10^3/uL; Basophil% 0.4 % (0-1); Eosinophils% 1.2 % (0-5); Hematocrit 37.1 % (37-47); Hemoglobin 11.8 g/dL (12.0-15.0); Lymphocyte # 0.89 X10^3/ul (0.83-4.51); Lymphocyte % 10.6 % (19-41); Mean Corp Hgb Conc 31.8 g/dL (32-36); Mean Corpuscular Hgb 28.2 pg (27.0-32.0); Mean Corpuscular Volume 88.5 fL (81-99); Mean Platelet Vol. 10.1 fl (6.2-12.0); Monocyte# 0.74 X10^3/uL; Monocyte% 8.8 % (0-10); NRBC Flagged by Analyzer 0 % (0-5); Neutrophil # 6.61 X10^3/uL (2.7-7.7); Neutrophil % 78.5 % (47-70); Platelet Count 328 K/mm3 (150-450); RBC Distribution Width CV 13.3 % (11.6-14.6); RBC Distribution Width SD 42.7 fl (35.1-43.9); Red Blood Count 4.19 M/mm3 (4.2-5.4); White Blood Count 8.4 K/mm3 (4.4-11.0)
[2023-10-21 13:11] LABS: ALB/GLOB Ratio 0.6 RATIO (0.9-2.4); AST(SGOT) 262 U/L (15-37); Alanine Aminotransfer ALT/SGPT 491 U/L (13-56); Albumin, Serum 2.4 g/dL (3.2-5.0); Alkaline Phosphatase 200 U/L (45-117); Anion Gap 7 (5-15); BUN 13 mg/dL (7-18); BUN/Creat Ratio 21.9 RATIO (10-20); Calcium,Total 7.4 mg/dL (8.5-10.1); Chloride 108 mmol/L (98-107); Creatinine, Serum 0.59 mg/dL (0.55-1.02); EST Glomerular Filtration Rate 119 mL/min (>60); Est Glom Filt Rate - Afr Amer 144 mL/min (>60); Estimated Creatinine Clearance 143.12 ml/min; Globulin 4.3 g/dL (2.2-4.2); Glucose 62 mg/dL (74-106); Potassium 3.9 mmol/L (3.5-5.1); Protein, Total 6.7 g/dL (6.4-8.2); Sodium Level 139 mmol/L (136-145)
[2023-10-22 14:58] VITALS: BP 117/65; PULSE 90; RESP 17; TEMP 37.2
== END 2023-10-21 13:55 | disposition home or self-care (01) | DRG 776 ==
LOC: WPOUT 10-22 12:50 → WP 10-22 12:50
PROVIDERS: Obstetrics & Gynecology; Admitting Provider Advanced Practice Midwife; Referring Provider Advanced Practice Midwife; Visit Provider Advanced Practice Midwife
DX: O14.15 Severe pre-eclampsia, complicating the puerperium (principal); F41.8 Other specified anxiety disorders; O24.435 Gestational diabetes mellitus in puerperium, controlled by oral hypoglycemic drugs; O99.345 Other mental disorders complicating the puerperium; Z87.51 Personal history of pre-term labor; N96 Recurrent pregnancy loss
CPT/HCPCS: 36415; 74177; 80053; 82565; 82962; 84450; 84460; 84550; 85025; 85027; 85384; J7120; Q9967; A4216

== ENCOUNTER → 2023-10-25 | Outpatient (CLI) | payer BC, SELFPAY ==
[2023-10-25 10:27] LABS: Absolute Lymphocyte Count 1.26 X10^3/uL (0.83-4.51); Absolute Neutrophil Count 8.6 X10^3/uL (2.0-7.7); Basophil# 0.07 X10^3/uL; Basophil% 0.6 % (0-1); Eosinophil# 0.16 X10^3/uL; Eosinophils% 1.4 % (0-5); Hematocrit 41.1 % (37-47); Hemoglobin 12.9 g/dL (12.0-15.0); Lymphocyte # 1.26 X10^3/ul (0.83-4.51); Lymphocyte % 11.3 % (19-41); Mean Corp Hgb Conc 31.4 g/dL (32-36); Mean Corpuscular Hgb 27.9 pg (27.0-32.0); Mean Platelet Vol. 9.5 fl (6.2-12.0); Monocyte# 0.99 X10^3/uL; Monocyte% 8.9 % (0-10); NRBC Flagged by Analyzer 0 % (0-5); Neutrophil # 8.59 X10^3/uL (2.7-7.7); Neutrophil % 77.2 % (47-70); Platelet Count 393 K/mm3 (150-450); RBC Distribution Width CV 13.1 % (11.6-14.6); RBC Distribution Width SD 42.1 fl (35.1-43.9); Red Blood Count 4.62 M/mm3 (4.2-5.4); White Blood Count 11.1 K/mm3 (4.4-11.0)
[2023-10-25 10:43] LABS: ALB/GLOB Ratio 0.7 RATIO (0.9-2.4); AST(SGOT) 26 U/L (15-37); Alanine Aminotransfer ALT/SGPT 125 U/L (13-56); Alkaline Phosphatase 205 U/L (45-117); Anion Gap 6 (5-15); BUN 10 mg/dL (7-18); BUN/Creat Ratio 13.9 RATIO (10-20); Calcium,Total 8.9 mg/dL (8.5-10.1); Chloride 106 mmol/L (98-107); Creatinine, Serum 0.72 mg/dL (0.55-1.02); EST Glomerular Filtration Rate 95 mL/min (>60); Est Glom Filt Rate - Afr Amer 115 mL/min (>60); Globulin 4.6 g/dL (2.2-4.2); Glucose 89 mg/dL (74-106); Potassium 4.1 mmol/L (3.5-5.1); Protein, Total 7.6 g/dL (6.4-8.2); Sodium Level 137 mmol/L (136-145)
== END | disposition home or self-care (01) ==
LOC: PAVLAB 10:15
PROVIDERS: Referring Provider Obstetrics & Gynecology; Visit Provider Obstetrics & Gynecology
DX: O14.15 Severe pre-eclampsia, complicating the puerperium (principal); Z3A.00 Weeks of gestation of pregnancy not specified
CPT/HCPCS: 36415; 80053; 85025

== ENCOUNTER → 2025-04-21 | Outpatient (CLI) | payer BC, SELFPAY ==
[2025-04-24 23:08] LABS: Anti-Mullerian Hormone,Serum 0.619 ng/mL (.)
== END | disposition home or self-care (01) ==
PROVIDERS: Visit Provider Obstetrics & Gynecology
DX: R68.82 Decreased libido (principal); N94.10 Unspecified dyspareunia
CPT/HCPCS: 36415; 83516; 87070; 87205

== ENCOUNTER → 2025-04-29 | Outpatient (CLI) | payer BC, SELFPAY ==
--- NOTE | 2025-04-29 12:41 | US_ITS ---
PROCEDURE: PELVIC W/ TRANSVAGINAL 04/29/2025 REASON FOR EXAM: DYSPAREUNIA TECHNIQUE: Procedure Code: [id number] Modality: US Procedure: PELVIC W/ TRANSVAGINAL COMPARISON: None FINDINGS: Uterus: 10.8 x 7.0 x 5.8 cm no demonstrated fibroid. There is an IUD noted in satisfactory position Endometrium: Hyperechoic at 5 mm Right ovary: 4.9 x 4.1 x 2.6 cm no suspicious mass, normal color Doppler Left ovary: 2.6 x 2.3 x 1.1 cm, no suspicious mass, normal color Doppler flow Other: No free fluid, bladder incompletely distended US/Pelvic w/ Transvaginal IMPRESSION: No suspicious sonographic findings, IUD noted in satisfactory position Reading Location: [id number]
--- NOTE | 2025-04-29 12:41 | US_ITS ---
PROCEDURE: PELVIC W/ TRANSVAGINAL 04/29/2025 REASON FOR EXAM: DYSPAREUNIA TECHNIQUE: Procedure Code: [id number] Modality: US Procedure: PELVIC W/ TRANSVAGINAL COMPARISON: None FINDINGS: Uterus: 10.8 x 7.0 x 5.8 cm no demonstrated fibroid. There is an IUD noted in satisfactory position Endometrium: Hyperechoic at 5 mm Right ovary: 4.9 x 4.1 x 2.6 cm no suspicious mass, normal color Doppler Left ovary: 2.6 x 2.3 x 1.1 cm, no suspicious mass, normal color Doppler flow Other: No free fluid, bladder incompletely distended US/Pelvic w/ Transvaginal IMPRESSION: No suspicious sonographic findings, IUD noted in satisfactory position Reading Location: [id number]
== END | disposition home or self-care (01) ==
PROVIDERS: PCP Nurse Practitioner Family; Referring Provider Obstetrics & Gynecology; Visit Provider Obstetrics & Gynecology
DX: N94.10 Unspecified dyspareunia (principal)
CPT/HCPCS: 76830; 76856